=== PATIENT | female | born 1955 | race Caucasian/White ===

== ENCOUNTER 2019-03-20 15:44 | Inpatient (IN) | payer OTHER, SELFPAY ==
--- NOTE | ~2019-03-20 | XR_ITS ---
EXAMINATION: XR knee RT 2V DATE: 03/21/2019 15:57 INDICATION: Erythema at the right knee with recurrent knee infections. TECHNIQUE: Anteroposterior, oblique and crosstable lateral views of the right knee were obtained COMPARISON: None. FINDINGS: Right total knee arthroplasty with patellar resurfacing which appears well seated in near-anatomic al ignment. No periprosthetic lucency to suggest loosening or infection. There is lateral plate and scre w fixation spanning a comminuted metadiaphyseal fracture of the right femur. There is some nonbridgin g callus formation along the lateral margin of the midportion of the plate. No definitive solid osseo us bridging. There is some lucency in the distal metaphyseal fragment surrounding the distal portion of the central 2 screws. This does not appear to extend proximally along the screws to involve the lin rrounding distal diaphyseal region of the proximal fragment which slightly favors loosening over infe ction. No lucency surrounding the pair of proximal screws or the partially visualized distal 3 screws . Diffuse osteopenia. No joint effusion. IMPRESSION: 1. Small amount of lucency surrounding the distal aspect of the septal 2 screws of a plate and screw fixation of a still likely ununited comminuted metadiaphyseal fracture of the distal right femur. Dif ferential includes loosening and infection. Favor the former as the lucency remains confined to the p ortion of the screws in the distal fragment. 2. Right total knee arthroplasty which appears to remain well seated. 3. No significant right knee joint effusion. Reviewed, dictated and finalized at location A. PRODUCER IMPRESSION: 1. Small amount of lucency surrounding the distal aspect of the septal 2 screws of a plate and screw fixation of a still likely ununited comminuted metadiaphy seal fracture of the distal right femur. Differential includes loosening and in fection. Favor the former as the lucency remains confined to the portion of the screws in the distal fragment. 2. Right total knee arthroplasty which appears to remain well seated. 3. No significant right knee joint effusion.
--- NOTE | ~2019-03-20 | CT_ITS ---
EXAMINATION: CT abdomen pelvis w con DATE: 03/20/2019 17:05 INDICATION: Abdominal pain TECHNIQUE: Computed tomography (CT) of the abdomen and pelvis was performed with 100 mL Omnipaque-350 intravenous contrast. Automated exposure control and iterative reconstruction technique were employe d. The dose-length product was 1455.30 mGy-cm. COMPARISON: None FINDINGS: Mild discoid atelectasis in the bilateral lower lobes. Heart size is normal. No pericardial or pleura l effusion. Atherosclerotic coronary artery calcifications. Mild intra and extrahepatic biliary ducta l dilation which is within normal limits post cholecystectomy with surgical clips at the gallbladder fossa. Spleen, pancreas, bilateral adrenal glands and kidneys are normal. No bowel obstruction. Liqui d stool in the distal colon consistent with diarrhea. There is diffuse smooth wall thickening with in a haustral pattern in the colon. Bladder, anteverted uterus and bilateral adnexa are unremarkable. N o abscess or free intraperitoneal gas or fluid. No pathologically enlarged abdominal or pelvic lympha denopathy. Scattered atherosclerotic calcification without hemodynamically significant stenosis in th e aorta and several of the other arteries. There is moderate stenosis at the proximal celiac axis res ulting from extrinsic compression from the ravin of the diaphragm. Moderate scattered degenerative ske letal changes in the spine and pelvis. IMPRESSION: 1. Diarrhea with wall thickening in the distal colon which demonstrates and a haustral pattern consis tent with colitis which could be either acute, chronic or acute on chronic. Differential would includ e inflammatory colitis including ulcerative colitis as well as infectious or ischemic etiologies. 2. Mild intra and extra hepatic biliary ductal dilation likely related to prior cholecystectomy but w ould correlate with liver function tests. Reviewed, dictated and finalized at location A. ABLE ROUTER OPERATOR IMPRESSION: 1. Diarrhea with wall thickening in the distal colon which demonstrates and a h austral pattern consistent with colitis which could be either acute, chronic or acute on chronic. Differential would include inflammatory colitis including ul cerative colitis as well as infectious or ischemic etiologies. 2. Mild intra and extra hepatic biliary ductal dilation likely related to prior cholecystectomy but would correlate with liver function tests.
--- NOTE | ~2019-03-20 | XR_ITS ---
EXAMINATION: XR chest 1V portable DATE: 03/20/2019 22:59 INDICATION: Reevaluate PICC line position following a saline flush. TECHNIQUE: frontal view of the chest was obtained. COMPARISON: Chest radiograph dated 03/20/2019 at 9:32 PM FINDINGS: No interval change in positioning of the left upper chimney peripherally inserted central venous cath eter with distal tip curled back upon itself at the superior vena cava potentially extending into the azygos vein. Mild left basilar atelectasis along side a small are cardial fat pad. Additional subtle opacities in the right lower lung zone which on prior CT correspond to mild atelectasis in the right lower lobe. No new airspace opacities, pulmonary edema, pleural effusion or pneumothorax. Heart size is within normal limits for AP technique. IMPRESSION: 1. PICC line tip unchanged in position, back upon itself at the superior vena cava, potentially exten ding into the azygos vein. 2. Mild bibasilar atelectasis. Reviewed, dictated and finalized at location A. RN DANCER IMPRESSION: 1. PICC line tip unchanged in position, back upon itself at the superior vena c madisyn, potentially extending into the azygos vein. 2. Mild bibasilar atelectasis.
--- NOTE | ~2019-03-20 | CT_ITS ---
EXAMINATION: CT abdomen pelvis w con DATE: 03/24/2019 09:46 INDICATION: Abdominal distention, sepsis, colitis. TECHNIQUE: Computed tomography (CT) of the abdomen and pelvis was performed with 100 mL Omnipaque-350 intravenous contrast. Automated exposure control and iterative reconstruction technique were employe d. The dose-length product was 1315.66 mGy-cm. COMPARISON: 03/20/2019 FINDINGS: Very small left and trace right pleural effusions. Dependent atelectasis in the bilateral lower lobes . Radio megaly. No pericardial or pleural effusion. Small sliding-type hiatal hernia. Cholecystectomy clips the gallbladder fossa. Liver, spleen, pancreas, bilateral adrenal glands and right kidney are normal. Subcentimeter low-attenuation likely cyst at the lower pole of the left kidney. Bladder, ante verted uterus and bilateral adnexa are unremarkable. No free intraperitoneal gas or fluid. No patholo gically enlarged abdominal or pelvic lymphadenopathy. Mild to moderate lumbar spondylosis. Small bowel is normal in caliber with no obstruction. The appendix is not visualized. No pericecal in flammatory change to suggest acute appendicitis. There is persistent mild wall thickening in the now relatively decompressed distal sigmoid colon consistent with colitis. Relatively uniform mucosal enha ncement throughout the colon including the sigmoid colon. No pneumatosis, abscess or free intraperito li gas or fluid. There is calcified atherosclerosis of the aorta and many of the other arteries wit h no evident hemodynamically significant stenosis. The celiac, superior. IMPRESSION: 1. Persistent sigmoid colitis most likely either infectious or inflammatory in etiology. Reviewed, dictated and finalized at location A. ER BALANCE WHEEL SCREW HOLE
--- NOTE | ~2019-03-20 | US_ITS ---
EXAMINATION: US venous doppler [facility] DATE: 03/21/2019 16:09 INDICATION: Lower limb swelling. Venous stasis. TECHNIQUE: Grayscale ultrasound images without and with compression and Doppler ultrasound images of the bilateral lower extremity veins were obtained. COMPARISON: None. FINDINGS: The visualized portions of right common femoral vein, profunda (deep) femoral vein, femoral vein, pop liteal vein, posterior tibial veins, peroneal veins, gastrocnemius vein and greater saphenous vein ou tflow are patent. The visualized portions of left common femoral vein, profunda femoral vein, femoral vein, popliteal v ein, posterior tibial veins, peroneal veins, gastrocnemius vein and greater saphenous vein outflow ar e patent. IMPRESSION: 1. No deep venous thrombosis in either lower limb. Reviewed, dictated and finalized at location A. ER LOADER
--- NOTE | ~2019-03-20 | XR_ITS ---
EXAMINATION: XR chest 1V portable DATE: 03/20/2019 21:36 INDICATION: PICC line placement TECHNIQUE: frontal view of the chest was obtained. COMPARISON: CT dated 03/20/2019 FINDINGS: Left upper extremity peripherally inserted central venous catheter (PICC) which extends to the superi or vena cava where it makes a short loop back upon itself, potentially extending into the azygos vein . Mild elevation of the left hemidiaphragm with pericardial fat pad extending between the apex of the h eart and the costophrenic angle. Other airspace opacities, pulmonary edema, pleural effusion or pneum othorax. The cardiomediastinal silhouette is normal. IMPRESSION: 1. Left PICC line tip curled back upon itself at the superior vena cava potentially extending into th e azygos vein. Successful repositioning can sometimes be achieved with a rapid saline flush. 2. No acute cardiopulmonary disease.. Reviewed, dictated and finalized at location A. SFER KNITTER IMPRESSION: 1. Left PICC line tip curled back upon itself at the superior vena cava potenti ally extending into the azygos vein. Successful repositioning can sometimes be achieved with a rapid saline flush. 2. No acute cardiopulmonary disease..
--- NOTE | ~2019-03-20 | XR_ITS ---
XR chest PICC line DATE: 03/22/2019 12:06 INDICATION: Left arm PICC placement TECHNIQUE: Portable upright AP chest on 04/01/2009 and 1151 hours COMPARISON: 03/20/2019 portable AP chest FINDINGS: Left upper stomach. Catheter tip overlies the superior vena cava near the superior cavoatri al junction. Borderline heart size. Aortic calcification. There is mild pulmonary vascular congestion and redistribution. Mild infiltrate or atelectasis is sug gested in the lower lung zones. Diffuse osteopenia. Degenerative spurring of the thoracic spine. IMPRESSION: Left upper extremity PIC catheter tip near superior cavoatrial junction Reviewed, dictated and finalized at Location A. Reviewed, dictated and finalized at location A. THETIC AIDE IMPRESSION: Left upper extremity PIC catheter tip near superior cavoatrial junc tion
--- NOTE | 2019-03-20 15:46 | ED.ABDPAIN ---
HPI - Abdominal Pain General Chief Complaint: Nausea/Vomiting/Diarrhea Stated Complaint: ABD PAIN Time Seen by Provider: 03/20/19 15:45 Source: patient Mode of arrival: EMS Limitations: no limitations History of Present Illness HPI narrative: Pt is 63 y/o female who presents to the ED, via EMS, from [facility], with c/o generalized ABD pain for 3 days. She reports associated N/V/D and ABD distention. She denies having a fever. Pt is normally on 3L of home O2. MD elicited complaint: abdominal pain Onset (ago): day(s) (3) Location: diffuse Associated symptoms: nausea, vomiting, diarrhea and other (ABD distention) Related Data Allergies Allergy/AdvReac Type Severity Reaction Status Date / Time Penicillins Allergy Unknown Rash Verified 01/02/19 09:22 Review of Systems Review of Systems: All systems reviewed & are unremarkable except as noted in HPI and below Constitutional: Constitutional: Denies fever(s) Gastrointestinal: Gastrointestinal: Reports abdominal pain, Reports bloating, Reports diarrhea, Reports nausea and Reports vomiting PMFSH Past Medical History Medical History (Updated 03/20/19 @ 17:38 by Sonido Gilbert DO) Anemia Anxiety Cellulitis COPD (chronic obstructive pulmonary disease) Depression Fibromyalgia Lymphedema Patellar bursitis PVD (peripheral vascular disease) Surgical History Surgical History (Updated 03/20/19 @ 16:13 by Arnaud Jackson) Surgical history unknown Social History Social History (Updated 03/20/19 @ 16:13 by Arnaud Jackson) Living arrangements: assisted Exam Narrative: Exam Narrative: APPEARANCE: No acute distress, nontoxic, resting in bed HEENT: Normocephalic, atraumatic, oral mucosa dry RESPIRATORY: No respiratory distress, clear to auscultation bilaterally with no rhonchi wheezing or rales CARDIOVASCULAR: RRR s murmur ABDOMINAL: Soft, mildly distended, diffusely tender to palpation, no rebound or guarding MUSCULOSKELETAl: Moves all extremities. No clubbing, cyanosis or edema. NEURO: Awake and alert. Following commands, speech normal, no focal deficits SKIN:: Warm, dry. Normal Color PSYCHIATRIC: Normal affect/mood Course Course Emergency Course: Discussed with Dr. Stack. Agrees with consult with patient start antibiotics. Request stool cultures and C. difficile be obtained Discussed with SAMMY Rapp presentation work-up. Agrees with admission at this time Discussed with patient and family results of workup and diagnosis. Discussed need for admission. Patient and family understand and agree to current treatment plan Vital Signs Vital signs: Vital Signs Temperature 98.2 F 03/20/19 15:50 Pulse Rate 109 H 03/20/19 15:50 Respiratory Rate 20 03/20/19 15:50 Blood Pressure 160/88 H 03/20/19 15:50 Pulse Oximetry 97 03/20/19 15:50 Temperature 98.2 F 03/20/19 15:50 Pulse Rate 109 H 03/20/19 15:50 Respiratory Rate 20 03/20/19 15:50 Blood Pressure 160/88 H 03/20/19 15:50 Pulse Oximetry 97 03/20/19 15:50 MDM - Abdominal Pain Lab Data Result diagrams: 03/20/19 15:57 03/20/19 15:57 Labs: Lab Results 03/20/19 03/20/19 03/20/19 Range/Units 15:57 15:57 15:57 WBC 26.2 H (4.5-10.0) K/mm3 RBC 5.23 (4.2-5.4) M/mm3 Hgb 15.3 H (12.0-15.0) g/dL Hct 47.7 H (37.0-47.0) % MCV 91.2 (80-100) fl MCH 29.3 (26-34) pg MCHC 32.1 (32-36) g/dl RDW 13.7 (11.5-14.5) % Plt Count 382 H (150-375) k/mm3 MPV 9.8 (7.4-10.4) fl Immature Gran % (Auto) Not Reportable Neut % (Auto) Not Reportable Lymph % (Auto) Not Reportable Jenkins % (Auto) Not Reportable Eos % (Auto) Not Reportable Baso % (Auto) Not Reportable Lymph # (Auto) Not Reportable Jenkins # (Auto) Not Reportable Eos # (Auto) Not Reportable Baso # (Auto) Not Reportable Abs Immat Gran (auto) Not Reportable Absolute Neuts (auto) Not Reportable Absolut
[2019-03-20 15:50] VITALS: BP 160/88; PULSE 109; RESP 20; TEMP 36.8; O2SAT 97
[2019-03-20 16:06] LABS: Hematocrit 47.7 % (37.0-47.0); Hemoglobin 15.3 g/dL (12.0-15.0); Mean Corpuscular HGB Conc 32.1 g/dl (32-36); Mean Corpuscular Hemoglobin 29.3 pg (26-34); Mean Corpuscular Volume 91.2 fl (80-100); Mean Platelet Volume 9.8 fl (7.4-10.4); Platelet Count Result 382 k/mm3 (150-375); Red Blood Count 5.23 M/mm3 (4.2-5.4); Red Cell Distribution Width 13.7 % (11.5-14.5); White Blood Count 26.2 K/mm3 (4.5-10.0)
[2019-03-20 16:18] LABS: Lactic Acid Reflex 2.6 mmol/L (0.7-2.1)
[2019-03-20 16:19] LABS: Alanine Aminotransferase 22 U/L (4-35); Alkaline Phosphatase 129 U/L (38-126); Aspartate Amino Transferase 28 U/L (14-36); Bilirubin,Total 0.6 mg/dL (0.2-1.3); Blood Urea Nitrogen 10 mg/dL (7-17); Calcium 8.9 mg/dL (8.4-10.2); Carbon Dioxide 35 mmol/L (22-30); Chloride 90 mmol/L (98-107); Estimated CRCL calculation 178 ml/min; Estimated Glomerular Filt Rate > 60; Glucose 224 mg/dL (65-105); Sodium 134 mmol/L (137-145)
[2019-03-20 16:24] LABS: INR 1.1; Prothrombin Time 13.7 Seconds (11.1-14.7)
[2019-03-20 16:25] LABS: Partial Thromboplastin Time 33.4 SECONDS (22.3-36.8)
[2019-03-20 16:32] LABS: Band Neutrophils Percent 16 % (0-6); Lymphocytes Absolute Manual 1.04 K/mm3 (1.1-4.5); Monocytes Absolute Manual 0.78 K/mm3 (0.1-0.90); Monocytes Percent Manual 3 % (3-9); Neutrophils Absolute Manual 24.36 K/mm3 (1.7-7.2); Neutrophils Percent Manual 77 % (46-73); Total Cells Counted 100
[2019-03-20 16:59] LABS: Add Urine Microscopic? YES; Appearance Urine Clear (Clear); Bilirubin Urine Negative (Negative); Blood Urine Negative (Negative); Color Urine Yellow (Yellow); Glucose Urine UA Negative (Negative); Ketones Urine Negative (Negative); Leukocyte Esterase Ur Negative LEU/UL (Negative); Mucus Urine Rare /lpf; Nitrate Urine Negative (Negative); Protein Urine Negative (Negative); RBC Urine 0-2 /hpf (0-2); Specific Grav Ur 1.017 (1.001-1.035); Squamous Epithelial Cell Urine Rare /hpf (Few); Urobilinogen Urine Negative mg/dL (<2.0); WBC Urine 0-3 /hpf
[2019-03-20] MEDS: SODIUM CHLORIDE 0.9% IV 1,000 ML 999 ML IV CONT (17:05)
[2019-03-20] MEDS: metroNIDAZOLE 500 MG/ISO 100ML 500 MG/100 ML BAG 100 MG IVPB (17:53)
[2019-03-20 19:03] LABS: Reflex Lactic Acid Yes or No Add Lactic
[2019-03-20 19:07] VITALS: BP 149/67; PULSE 105; RESP 16; O2SAT 98
--- NOTE | 2019-03-20 19:30 | ADMGEN ---
This patient, Ania Russell, was admitted to 2 Medical Room 242-01. Patient/family oriented to hospital policies and general routines including ID bracelet, bed and alarms, visiting hours, pain management, procedures, bathroom and other care routines, personal items, smoking policy, room service/diet, and visiting hours. Valuables list has been completed. Information on how to activate the Rapid Response Team has been discussed. Patient/Family are encouraged to report perceived risks to care and to ask questions if they do not understand what they are told or what they should do.
[2019-03-20] MEDS: LACTATED RINGERS 1,000 ML 125 ML IV CONT (20:05)
--- NOTE | 2019-03-20 20:10 | ECG_ITS ---
Measurements Intervals [place] Rate: 111 P: 65 SD: 126 QRS: 14 QRSD: 82 T: 45 QT: 305 QTc: 416 Interpretive Statements SINUS TACHYCARDIA FREQUENT ATRIAL PREMATURE COMPLEXES BORDERLINE ST-T WAVE ABNORMALITY- DIFFUSE LEADS BASELINE ARTIFACT- V4 ABNORMAL ECG Electronically Signed On 03-21-2019 7:28:09 DORMITORY COUNSELOR by Min Hassan D.O.
[2019-03-20 20:36] LABS: Lactic Acid 1.6 mmol/L (0.7-2.1)
[2019-03-20 21:00] VITALS: O2SAT 95
[2019-03-20 21:31] VITALS: BP 126/63; PULSE 115; RESP 20; TEMP 36.4; O2SAT 94; BMI 43.0
[2019-03-20] MEDS: ONDANSETRON INJ 4 MG/2 ML VIAL IV PUSH (22:43)
[2019-03-20] MEDS: MORPHINE SULFATE 30 MG TABCR PO (23:49)
[2019-03-21] MEDS: metroNIDAZOLE 500 MG/ISO 100ML 500 MG/100 ML BAG 100 MG IVPB ×4 (00:45→17:24)
[2019-03-21 05:46] VITALS: BP 121/70; PULSE 111; RESP 20; TEMP 36.9; O2SAT 95
[2019-03-21] MEDS: LACTATED RINGERS 1,000 ML 125 ML IV CONT ×2 (05:48→17:26)
[2019-03-21 06:43] LABS: Hematocrit 44.3 % (37.0-47.0); Hemoglobin 14.1 g/dL (12.0-15.0); Mean Corpuscular HGB Conc 31.8 g/dl (32-36); Mean Corpuscular Hemoglobin 28.7 pg (26-34); Mean Platelet Volume 9.9 fl (7.4-10.4); Platelet Count Result 348 k/mm3 (150-375); Red Blood Count 4.92 M/mm3 (4.2-5.4); Red Cell Distribution Width 13.5 % (11.5-14.5); White Blood Count 18.3 K/mm3 (4.5-10.0)
[2019-03-21 07:00] LABS: Alanine Aminotransferase 17 U/L (4-35); Albumin Level 3.3 g/dL (3.5-5.1); Alkaline Phosphatase 117 U/L (38-126); Aspartate Amino Transferase 19 U/L (14-36); Bilirubin,Total 0.6 mg/dL (0.2-1.3); Blood Urea Nitrogen 11 mg/dL (7-17); Calcium 8.8 mg/dL (8.4-10.2); Carbon Dioxide 32 mmol/L (22-30); Chloride 91 mmol/L (98-107); Estimated CRCL calculation 138 ml/min; Estimated Glomerular Filt Rate > 60; Glucose 123 mg/dL (65-105); Magnesium 2.4 mg/dL (1.6-2.3); Potassium 3.3 mmol/L (3.4-5.0); Sodium 134 mmol/L (137-145)
[2019-03-21] MEDS: POTASSIUM CHLORIDE 20 MEQ TABLET 40 MEQ PO (08:20)
[2019-03-21] MEDS: MORPHINE SULFATE 30 MG TABCR PO ×2 (08:21→21:54)
[2019-03-21] MEDS: ONDANSETRON INJ 4 MG/2 ML VIAL IV PUSH ×3 (08:33→16:39)
--- NOTE | 2019-03-21 08:35 | WPDGICN ---
Assessment and Plan Additional Plan This is a 63-year-old white female patient I am asked to see at the request of the emergency room. Patient currently resident of a rehab center, [facility]. Outpatient primary care is Dr. Lay. Patient has had a 3 day history of abdominal pain nausea vomiting some diarrhea. She reports abdominal distention as well. Patient denies a fever. She was sent to the emergency room a CT scan suggested colitis. Patient is in the residential because of a past history of nonhealing bone fracture in the lower extremity. She has a history of COPD. On 3L of oxygen at home. She is reported to have fibromyalgia. Past medical history significant for COPD, fibromyalgia, depression, peripheral vascular disease. Obesity. Medications at home include Tylenol, albuterol, calcium, vitamin D3, ferrous sulfate, Lasix, lactobacillus, morphine, multiple vitamins, rifampin, sertraline, Bactrim, spiriva. She reports an allergy to penicillin. Family history noncontributory. Physical exam vital signs appears stable. HEENT exam unremarkable. She is anicteric. Lungs are clear to auscultation and percussion. Heart is without murmur. Abdominal exam is obese. Bowel sounds are present. Soft and nontender. Rectal exam is deferred. Laboratory findings reveals WBC 05140. Hemoglobin 15. BUN of 11, creatinine 0.4. LFTs are normal. CT scan of the abdomen reveals wall thickening in the distal colon consistent with colitis. Also nonspecific biliary dilatation if as expected after previous cholecystectomy. Impression 1. Infectious colitis. diarrhea abdominal pain and abnormal CAT scan all consistent with infectious colitis. Ischemic colitis and inflammatory bowel disease or felt to be much less likely. 2. Obesity. 3. COPD. 4. Previous cholecystectomy. 5. Nonhealing bone fractures in lower extremity. Plan is to culture stool. Broad-spectrum antibiotic coverage. IV rehydration. Elective outpatient colonoscopy can be arranged after discharge. Unless patient fails to his heel with conservative antibiotic therapy. We will follow with you. GI Consult Note Consult date/time: 03/21/19 08:35 HPI: Ania Russell is a 63 year old female [facility] Past Medical History Medical History (Updated 03/20/19 @ 17:38 by Sonido Gilbert DO) Anemia Anxiety Cellulitis COPD (chronic obstructive pulmonary disease) Depression Fibromyalgia Lymphedema Patellar bursitis PVD (peripheral vascular disease) Surgical History Surgical History (Updated 03/20/19 @ 16:13 by Arnaud Jackson) Surgical history unknown Family History Family History (Updated 03/20/19 @ 19:40 by Kate Villagomez RN) Father Acute myocardial infarction Mother Asthma Chronic obstructive pulmonary disease Social History Social History (Updated 03/20/19 @ 16:13 by Arnaud Jackson) Smoking status: Former smoker Alcohol intake: never Substance use: never Living arrangements: residential Gender identity (if verbalized by the patient): Female Spiritual care concerns: No Agree to blood products: Yes Meds Home Medications and Allergies Home Medications Medication Instructions Recorded Confirmed Type Lactobacillus acidophilus 100 mg PO DAILY 03/20/19 03/20/19 History [Acidophilus] acetaminophen [Tylenol] 650 mg PO Q4-6H PRN 03/20/19 03/20/19 History acidophilus-pectin, citrus 1 cap PO BID 03/20/19 03/20/19 History [Acidophilus Probiotic] albuterol sulfate 0.63 mg INHALATION Q4H PRN 03/20/19 03/20/19 History albuterol sulfate [Ventolin HFA] 2 puff INHALATION QID PRN 03/20/19 03/20/19 History nebjmbea-qhnowhkmk-vyfknyd HMB 1 ea PO BID 03/20/19 03/20/19 History [Ahmet] ascorbic acid (vitamin C) 500 mg PO BID 03/20/19 03/20/19 History calcium carbonate [Calcium 500] 500 mg PO BID 03/20/19 03/20/19 History cholecalciferol (vitamin D3) 2,000 unit PO DAILY 03/20/19 03/20/19 History [Vitamin D3]
[2019-03-21 09:14] LABS: Band Neutrophils Percent 5 % (0-6); Lymphocytes Absolute Manual 2.01 K/mm3 (1.1-4.5); Monocytes Percent Manual 23 % (3-9); Neutrophils Absolute Manual 12.07 K/mm3 (1.7-7.2); Neutrophils Percent Manual 61 % (46-73); Total Cells Counted 100
[2019-03-21 09:15] LABS: Platelet Estimate Adequate (Adequate)
--- NOTE | 2019-03-21 10:08 | PC.NURSE ---
Patient's nausea would not allow her to take all of her morning medication. She took her morning morphine and potassium. All others she was unable to take. Offered again after zofran given. Patient refused still at 1005. Silvina Hull notified.
[2019-03-21 10:25] VITALS: O2SAT 96
[2019-03-21 14:00] VITALS: BP 146/60; PULSE 84; RESP 18; TEMP 36.2; O2SAT 98
--- NOTE | 2019-03-21 14:40 | PM.IMHP ---
H&P: HPI History of Present Illness Chief complaint: Severe sepsis/Colitis Narrative: Ania Russell is a 63 year old female with a history of chronic respiratory failure on 3L of oxygen, C. diff 11/2018, recurrent right knee infection seen by Infectious Disease at [facility] who has a PICC line and is curretly on IV Vancomycin 1.5 g Q12hr since returning to [facility] on 03/07/2019, who presented to the ER with symptoms of nausea, vomiting, abdominal pain, abdominal distension and diarrhea for the last few days. The patient had been feeling fine until 2 days ago she had abdominal distention and tenderness to palpation of her abdomen. She told the Nursing staff and they recommended her to go to the ER but she had refused. Then, symptoms progressed and she was unable to keep anything down from the vomiting and her diarrhea was watery in nature and would even expell with coughing or sneezing. She reports having C. diff in the past. She does report feeling lightheadedness, generalizd weakness, fatigue prior to arrival. She denies any fever, chills, worsening leg swelling, chest pain, worsneing SOB or [place], cough, dysuria, frequent urination, rhinorrhea, congestion, dizziness, headache, vision changes or any other symptoms at this time. I called [facility] and talked to her nurse Ana Laura, who states the patient was on Bactrim and Rifampin by her Infectious Disease DrStephanie Bradford (#[phone]) at [facility], prior to her hospitalization 02/2019. She was then sent to [facility] 02/2019 and found to have Cellulitis of the right knee and started on IV Vancomycin through her PICC Line. She was discharged from [facility] on 03/07/2019 back to [facility] and continued on Vancomycin 1.5 g Q12hrs and her next trough was suppose to be 03/22/2019. She is suppose to follow up with her infectious disease doctor at [facility] on 03/25/2019. Ana Laura the nurse states on 03/19/2019, the patient complained of abdominal distension but refused to come to the ER for evaluation. Then on 03/20/2019 she was having worsening symptoms and was finally decided to come to the ER. Code Status: DNR POA: , Aidan Russell PCP: [facility] Physician Review of Systems Review of Systems: All systems reviewed & are unremarkable except as noted in HPI and below PMFSH Past Medical History Medical History (Updated 03/22/19 @ 16:26 by Silvina Hull PA-C) Anemia Antibiotic long-term use Due to recurrent infections to her right femoral fracture Anxiety Cellulitis Chronic respiratory failure Uses 3L via [place] COPD (chronic obstructive pulmonary disease) Depression Fibromyalgia Lymphedema Patellar bursitis PVD (peripheral vascular disease) Right femoral fracture With recurrent infections Surgical History Surgical History History of appendectomy History of cardiac catheterization History of colonoscopy History of esophagogastroduodenoscopy (EGD) History of left knee replacement History of right knee joint replacement Hx of cholecystectomy Surgical history unknown Family History Family History Father Acute myocardial infarction Mother Asthma Chronic obstructive pulmonary disease Social History Social History Smoking packs per day: 1 Smoking cigarettes per day: 20.0 Years smoked: 5 Smoking pack-years: 5.00 Smoking status: Former smoker Alcohol intake: never Substance use: never Living arrangements: retirement Additional living arrangements comments: Lives at [facility] Gender identity (if verbalized by the patient): Female Spiritual care concerns: No Agree to blood products: Yes Meds Home Medications and Allergies Home Medications Medication Instructions Recorded Confirmed Type Lactobacillus acidophilus 100 mg PO DAILY 03/20/19 03/20/19 Co
[2019-03-21] MEDS: ACETAMINOPHEN 325 MG TABLET 650 MG PO (17:24)
[2019-03-21] MEDS: VANCOMYCIN ORAL 125 MG/2.5 ML SYRUP PO (19:20)
[2019-03-21 22:45] VITALS: BP 141/58; PULSE 99; RESP 18; TEMP 36.3; O2SAT 96
[2019-03-22] MEDS: VANCOMYCIN ORAL 125 MG/2.5 ML SYRUP PO ×3 (00:39→12:31)
[2019-03-22] MEDS: LACTATED RINGERS 1,000 ML 125 ML IV CONT ×2 (00:40→11:25)
[2019-03-22 05:13] LABS: Basophils Absolute Auto 0.1 K/mm3 (0.0-0.1); Basophils Percent Auto 0.5 % (0.2-1.2); Eosinophils Absolute Auto 0.1 K/mm3 (0-0.3); Eosinophils Percent Auto 1.4 % (0-4.4); Hematocrit 36.4 % (37.0-47.0); Hemoglobin 11.8 g/dL (12.0-15.0); Immature Granulocyte Absolute 0.07 K/mm3 (0.00-0.031); Immature Granulocyte Percent A 0.7 % (0-0.5); Lymphocytes Percent Auto 36.7 % (18.3-44.2); Mean Corpuscular HGB Conc 32.4 g/dl (32-36); Mean Corpuscular Hemoglobin 29.4 pg (26-34); Mean Corpuscular Volume 90.5 fl (80-100); Mean Platelet Volume 9.9 fl (7.4-10.4); Monocytes Absolute Auto 1.3 K/mm3 (0.1-0.6); Neutrophils Absolute Auto 4.5 K/mm3 (1.3-6.7); Neutrophils Percent Auto 46.7 % (45.5-73.1); Platelet Count Result 283 k/mm3 (150-375); Red Blood Count 4.02 M/mm3 (4.2-5.4); Red Cell Distribution Width 13.3 % (11.5-14.5); White Blood Count 9.5 K/mm3 (4.5-10.0)
[2019-03-22 05:24] LABS: Alanine Aminotransferase 14 U/L (4-35); Albumin Level 2.6 g/dL (3.5-5.1); Alkaline Phosphatase 99 U/L (38-126); Aspartate Amino Transferase 20 U/L (14-36); Bilirubin,Total 0.3 mg/dL (0.2-1.3); Blood Urea Nitrogen 9 mg/dL (7-17); Calcium 8.5 mg/dL (8.4-10.2); Carbon Dioxide 36 mmol/L (22-30); Chloride 96 mmol/L (98-107); Estimated CRCL calculation 138 ml/min; Estimated Glomerular Filt Rate > 60; Glucose 96 mg/dL (65-105); Potassium 3.2 mmol/L (3.4-5.0); Sodium 135 mmol/L (137-145)
[2019-03-22 05:46] VITALS: O2SAT 96
[2019-03-22 05:55] VITALS: BP 131/60; PULSE 96; RESP 18; TEMP 36.1; O2SAT 96
--- NOTE | 2019-03-22 07:45 | WPDGIPROGNO ---
Progress Note: A&P Additional Plan Patient reports ongoing diarrhea. Complains of abdominal distention and bloating. Physical exam reveals her to be afebrile. HEENT exam unremarkable. She is anicteric. Lungs are clear. Heart is without murmur. Abdomen is obese. Bowel sounds are present. Abdomen is tympanic. And mild diffuse tenderness noted. WBC down to 18. Yesterday. CBC today pending. Impression colitis by CT scan. Infectious colitis is felt most likely. Patient has been on antibiotics for cellulitis. Raising the question of C difficile infection. Stool cultures are currently pending. Agree with antibiotics per ID service. Will continue to monitor. Subjective Date/time seen: 03/22/19 07:45 Objective Data Vital Signs Vital Signs: Vital Signs - 24 hr 03/21/19 10:25 03/21/19 14:00 03/21/19 22:45 Temperature 36.2 C L 36.3 C L Pulse Rate 84 99 Respiratory Rate 18 18 Blood Pressure 146/60 H 141/58 H Pulse Oximetry 96 98 96 03/22/19 05:46 03/22/19 05:55 Temperature 36.1 C L Pulse Rate 96 Respiratory Rate 18 Blood Pressure 131/60 Pulse Oximetry 96 96 Intake/Output Intake/Output: Intake & Output 03/19/19 03/20/19 03/21/19 03/22/19 23:59 23:59 23:59 23:59 Intake Total 1250 4150 1750 Balance 1250 4150 1750 Meds/Results Medications: Active Medications Generic Name Dose Route Start Last Admin Trade Name Freq PRN Reason Stop Dose Admin Acetaminophen 650 mg 03/20/19 22:06 03/21/19 17:24 Tylenol Tablet PO 650 mg Q4H PRN Administration Fever or pain 1-3 Albuterol 2.5 mg 03/20/19 22:08 Albuterol Sulf Neb 2.5mg/0.5ml INHALATION Q4H PRN Dyspnea Albuterol 2 puff 03/21/19 21:29 Proventil Hfa INHALATION QID PRN Dyspnea Cyanocobalamin 1,000 mcg 03/21/19 09:00 03/21/19 10:48 Vitamin B-12 Tab PO Not Given QAM [facility] Ferrous Sulfate 324 mg 03/21/19 08:00 03/21/19 10:47 Ferrous Sulfate PO Not Given DAILY@0800 [facility] Folic Acid 1 mg 03/21/19 09:00 03/21/19 10:48 Folic Acid PO Not Given DAILY [facility] Guaifenesin 600 mg 03/21/19 21:29 Mucinex 12 Hr Tab PO BID PRN cough Lactated Ringer's 1,000 mls @ 100 mls/hr 03/20/19 17:35 03/22/19 05:19 Lr - Lactated Ringers Iv IV CONT 125 mls/hr .Q10H [facility] Infusion Vancomycin HCl 1,500 mg in 500 mls @ 333.333 mls/hr 03/21/19 19:00 03/22/19 06:21 Vancomycin 1,500 Mg/D5w 500 Ml IVPB 125 mls/hr Q12H [facility] Administration Lactobacillus Acidophilus 1 tablet 03/22/19 09:00 Lactinex Chewable Tablet PO 04/21/19 09:01 BID [facility] Loratadine 10 mg 03/21/19 09:00 03/21/19 10:48 Claritin PO Not Given QAM [facility] Morphine Sulfate 30 mg 03/21/19 09:00 03/21/19 21:54 Ms Contin PO 30 mg Q12H [facility] Administration Ondansetron HCl 4 mg 03/20/19 22:06 03/21/19 16:39 Zofran Inj IV PUSH 4 mg Q4H PRN Administration Nausea And Vomiting Fluticasone/Salmeterol 2 puff 03/21/19 08:00 03/21/19 23:22 Advair Hfa 230-21 Mcg (*Sp) Inhaler INHALATION 2 puff Q12HRT [facility] Administration Sertraline HCl 50 mg 03/21/19 09:00 03/21/19 10:48 Zoloft PO Not Given DAILY [facility] Tiotropium [place] 1 cap 03/21/19 09:00 03/21/19 10:24 Spiriva INHALATION 1 cap DAILY [facility] Administration Vancomycin HCl 125 mg 03/21/19 18:00 03/22/19 06:21 Vancomycin Oral PO 125 mg Q6HR [facility] Administration Vitamin D 2,000 unit 03/21/19 09:00 03/21/19 10:47 Vitamin D PO Not Given DAILY [facility] Radiology Results: ITS Impressions Abdomen/Pelvis CT 03/20/19 17:09 IMPRESSION: 1. Diarrhea with wall thickening in the distal colon which demonstrates and a haustral pattern consistent with colitis which could be either acute, chronic or acute on chronic. Differential would include inflammatory colitis including ulcerative colitis as well as infectious or ischemic etiologies. 2. Mild intra and extra hepatic biliary ducta
[2019-03-22] MEDS: MORPHINE SULFATE 30 MG TABCR PO ×2 (08:01→21:19)
[2019-03-22] MEDS: POTASSIUM CHLORIDE 20 MEQ TABLET 40 MEQ PO (08:02)
[2019-03-22] MEDS: SERTRALINE HCL 50 MG TABLET PO (08:03)
[2019-03-22] MEDS: ONDANSETRON INJ 4 MG/2 ML VIAL IV PUSH ×2 (08:04→22:32)
[2019-03-22 08:11] VITALS: O2SAT 98
--- NOTE | 2019-03-22 11:20 | PC.NURSE ---
PICC line placement and Xray discussed with Nayeli Lockwood the vascular range management specialist. She suggested a rapid flush of 6-10 mL syringes to assist with placement of the PICC line. Plan discussed with Silvina CHRISTIANSON. She said to proceed with the treatment and order a repeat Chest xray to verify placement once completed.
[2019-03-22 14:00] VITALS: BP 150/61; PULSE 85; RESP 18; TEMP 36.9; O2SAT 99
--- NOTE | 2019-03-22 14:35 | PM.IMPN ---
Progress Note: A&P Assessment and Plan (1) Severe sepsis: Code(s): A41.9 - Sepsis, unspecified organism; R65.20 - Severe sepsis without septic shock Status: Acute Assessment and Plan: The patient meets for severe sepsis with leukocytosis at 26,200, with a left shift and lactic acidosis, tachycardic heart rate, with a source of infection being infectious colitis. No longer septic. Lleukocytosis has normalized. Afebrile, not tachycardic, normal blood pressure, normal oxygenation on 3 L. Blood cultures and stool cultures are pending. The patient was started on IV antibiotics and will discontinue IV fluids Continue monitoring patients vitals, leukocytosis and symptoms. (2) Colitis: Code(s): K52.9 - Noninfective gastroenteritis and colitis, unspecified Status: Acute Assessment and Plan: This puts the patient at high risk of developing C diff colitis with chronic antibiotic use. The patient began having symptoms of nausea, vomiting, abdominal pain, abdominal distension, and diarrhea over the last few days. CT abdomen pelvis showed diarrhea with wall thickening in the distal colon which demonstrates colitis which could be acute, chronic or acute on chronic. Dr. Linton GI specialist was consulted from the ER and evaluated the patient and believes this could be related to infectious colitis and recommend continuing IV antibiotics at this time and monitoring patient's symptoms. Urine cultures were sent and pending. At this time the patient is feeling better. She is eating a little bit more today. She has not had any diarrhea today. She is still having a lot of pain, abdominal distension and intermittent nausea but it is improved. Due to the patient's significant history for antibiotic use due to recurrent right knee infections I will also consult Dr. Bishop infectious Disease on the case for further recommendations for antibiotic use at this time. 03/21/2019: I talked to Dr. Bishop about the patients History and IV Vancomycin use. He recommended continuing IV Vancomycin 1.5 g Q12hrs and to start PO Vancomycin for possible C. difficile infection. 03/22/2019: The patient C diff culture came back negative. I stopped her p.o. vancomycin and switch her back to IV Levaquin and Flagyl. The rest of her stool cultures are still pending. Will continue monitoring the patient's symptoms. Continue IV antibiotics. Input from GI and Infectious Disease is greatly appreciated at this time. (3) Acute hypokalemia: Code(s): E87.6 - Hypokalemia Status: Acute Assessment and Plan: The patient had hypokalemia on admission and was still slightly low this morning at 3.2. She was given potassium 40 mEq and we will recheck a BMP in the morning. Patient's magnesium was within normal limits. (4) Recurrent cellulitis: Code(s): L03.90 - Cellulitis, unspecified Status: Acute Assessment and Plan: The patient has been on chronic antibiotics for recurring right knee cellulitis. February 2019 she was on rifampin and Bactrim and after she was discharged from [facility] 03/07/2019 she was continued on IV vancomycin. She is currently on IV vancomycin 1.5 g q.12hr and her next trough is due to 03/22/2019. At this time her right knee has some slight erythema and edema. Started back on IV Vancomycin as recommended by Dr. Bishop over the phone after giving her history and present illness. Knee x-ray small amount of lucency Small amount of lucency surrounding the distal aspect of the septal 2 screws of a plate and screw fixation of a still likely ununited comminuted metadiaphyseal fracture of the distal right femur. Differential includes loosening and infection. Favor the former as the lucency remains confined to the portion of the screws in the distal fragment. No significant rig
--- NOTE | 2019-03-22 14:54 | PC.NURSE ---
Per Dr. Zamarripa the radiologist patient CXR us improved and the placement of the PICC line has improved. Silvina CHRISTIANSON also notified of the results.
[2019-03-22] MEDS: POTASSIUM CHLORIDE 20 MEQ TABLET.ER PO (18:27)
[2019-03-22] MEDS: FUROSEMIDE 40 MG TABLET PO (18:28)
[2019-03-22] MEDS: ACIDOPHILUS/BULGARICUS CHEWABLE TABLET 1 TABLET PO (18:28)
[2019-03-22 19:52] VITALS: PULSE 107; RESP 18; O2SAT 97
[2019-03-22] MEDS: metroNIDAZOLE 500 MG/ISO 100ML 500 MG/100 ML BAG 100 MG IVPB (20:18)
[2019-03-22 22:00] VITALS: BP 115/40; PULSE 91; RESP 22; TEMP 36.4; O2SAT 97
[2019-03-23] MEDS: metroNIDAZOLE 500 MG/ISO 100ML 500 MG/100 ML BAG 100 MG IVPB ×3 (00:29→10:55)
[2019-03-23 06:00] VITALS: BP 143/48; PULSE 80; RESP 20; TEMP 36.5; O2SAT 97
[2019-03-23 06:04] LABS: Basophils Absolute Auto 0.1 K/mm3 (0.0-0.1); Basophils Percent Auto 0.8 % (0.2-1.2); Eosinophils Absolute Auto 0.2 K/mm3 (0-0.3); Eosinophils Percent Auto 2.7 % (0-4.4); Hematocrit 34.7 % (37.0-47.0); Hemoglobin 10.9 g/dL (12.0-15.0); Immature Granulocyte Absolute 0.13 K/mm3 (0.00-0.031); Immature Granulocyte Percent A 1.8 % (0-0.5); Lymphocytes Absolute Auto 3.13 K/mm3 (0.9-3.2); Mean Corpuscular HGB Conc 31.4 g/dl (32-36); Mean Corpuscular Hemoglobin 28.8 pg (26-34); Mean Corpuscular Volume 91.6 fl (80-100); Mean Platelet Volume 10.2 fl (7.4-10.4); Monocytes Absolute Auto 0.9 K/mm3 (0.1-0.6); Monocytes Percent Auto 12.4 % (2.6-8.5); Neutrophils Absolute Auto 2.9 K/mm3 (1.3-6.7); Neutrophils Percent Auto 39.3 % (45.5-73.1); Platelet Count Result 290 k/mm3 (150-375); Red Blood Count 3.79 M/mm3 (4.2-5.4); Red Cell Distribution Width 13.6 % (11.5-14.5); White Blood Count 7.3 K/mm3 (4.5-10.0)
[2019-03-23 06:19] LABS: Blood Urea Nitrogen 7 mg/dL (7-17); Calcium 8.6 mg/dL (8.4-10.2); Carbon Dioxide 35 mmol/L (22-30); Chloride 96 mmol/L (98-107); Estimated CRCL calculation 176 ml/min; Estimated Glomerular Filt Rate > 60; Glucose 90 mg/dL (65-105); Magnesium 1.8 mg/dL (1.6-2.3); Potassium 3.9 mmol/L (3.4-5.0); Sodium 137 mmol/L (137-145)
--- NOTE | 2019-03-23 07:56 | WPDGIPROGNO ---
Progress Note: A&P Additional Plan Patient reports diarrhea has stopped. She continues to feel diffuse abdominal bloating. Some nausea associated with oral intake remains. Physical exam reveals her to be alert. Abdomen is obese. Abdomen is distended and tympanic. Bowel sounds are present. Abdomen is soft with no localized tenderness. Labs reveal WBC 7.3. Has now returned to normal. Hemoglobin 10.9, hematocrit 34.7, stool for C difficile toxin is negative. Impression 1. Colitis. Appears to be infectious colitis identified by CT scan. Plan is to continue broad-spectrum antibiotic coverage. Await final stool culture reports. Consider elective colonoscopy. Hopefully after discharge. Subjective Date/time seen: 03/23/19 07:56 Objective Data Vital Signs Vital Signs: Vital Signs - 24 hr 03/22/19 08:11 03/22/19 14:00 03/22/19 19:52 Temperature 36.9 C Pulse Rate 85 107 H Respiratory Rate 18 18 Blood Pressure 150/61 H Pulse Oximetry 98 99 97 03/22/19 22:00 03/23/19 06:00 Temperature 36.4 C 36.5 C Pulse Rate 91 80 Respiratory Rate 22 H 20 Blood Pressure 115/40 L 143/48 H Pulse Oximetry 97 97 Intake/Output Intake/Output: Intake & Output 03/20/19 03/21/19 03/22/19 03/23/19 23:59 23:59 23:59 23:59 Intake Total 1250 4150 4445 540 Balance 1250 4150 4445 540 Meds/Results Medications: Active Medications Generic Name Dose Route Start Last Admin Trade Name Freq PRN Reason Stop Dose Admin Acetaminophen 650 mg 03/20/19 22:06 03/21/19 17:24 Tylenol Tablet PO 650 mg Q4H PRN Administration Fever or pain 1-3 Albuterol 2.5 mg 03/20/19 22:08 Albuterol Sulf Neb 2.5mg/0.5ml INHALATION Q4H PRN Dyspnea Albuterol 2 puff 03/21/19 21:29 Proventil Hfa INHALATION QID PRN Dyspnea Cyanocobalamin 1,000 mcg 03/21/19 09:00 03/22/19 11:30 Vitamin B-12 Tab PO Not Given QAM [facility] Ferrous Sulfate 324 mg 03/21/19 08:00 03/22/19 11:30 Ferrous Sulfate PO Not Given DAILY@0800 [facility] Folic Acid 1 mg 03/21/19 09:00 03/22/19 11:30 Folic Acid PO Not Given DAILY [facility] Furosemide 40 mg 03/22/19 17:00 03/22/19 18:28 Lasix Tablet PO 40 mg BID [facility] Administration Guaifenesin 600 mg 03/21/19 21:29 Mucinex 12 Hr Tab PO BID PRN cough Vancomycin HCl 1,500 mg in 500 mls @ 333.333 mls/hr 03/21/19 19:00 03/23/19 06:53 Vancomycin 1,500 Mg/D5w 500 Ml IVPB 333 mls/hr Q12H [facility] Administration Levofloxacin/Dextrose 750 mg in 150 mls @ 100 mls/hr 03/22/19 19:00 03/23/19 00:35 Levaquin 750 Mg/D5w 150 Ml IVPB Infused Q24H [facility] Infusion Metronidazole 500 mg in 100 mls @ 100 mls/hr 03/22/19 18:00 03/23/19 06:33 Flagyl 500 Mg/Iso Soln 100 Ml IVPB Infused Q6H [facility] Lactobacillus Acidophilus 1 tablet 03/22/19 09:00 03/22/19 18:28 Lactinex Chewable Tablet PO 04/21/19 09:01 1 tablet BID [facility] Administration Loratadine 10 mg 03/21/19 09:00 03/22/19 11:30 Claritin PO Not Given QAM [facility] Morphine Sulfate 30 mg 03/21/19 09:00 03/22/19 21:19 Ms Contin PO 30 mg Q12H [facility] Administration Ondansetron HCl 4 mg 03/20/19 22:06 03/22/19 22:32 Zofran Inj IV PUSH 4 mg Q4H PRN Administration Nausea And Vomiting Potassium Chloride 20 meq 03/22/19 17:00 03/22/19 18:27 Kcl Tablet PO 20 meq BIDWM [facility] Administration Fluticasone/Salmeterol 2 puff 03/21/19 08:00 03/22/19 19:48 Advair Hfa 230-21 Mcg (*Sp) Inhaler INHALATION 2 puff Q12HRT [facility] Administration Sertraline HCl 50 mg 03/21/19 09:00 03/22/19 08:03 Zoloft PO 50 mg DAILY [facility] Administration Tiotropium [place] 1 cap 03/21/19 09:00 03/22/19 08:09 Spiriva INHALATION 1 cap DAILY [facility] Administration Vitamin D 2,000 unit 03/21/19 09:00 03/22/19 11:30 Vitamin D PO Not Given DAILY [facility] Radiology Results: ITS Impressions Abdomen/Pelvis CT 03/20/19 17:09 IMPRESSION:
--- NOTE | 2019-03-23 08:36 | PM.IMPN ---
Progress Note: A&P Assessment and Plan (1) Severe sepsis: Code(s): A41.9 - Sepsis, unspecified organism; R65.20 - Severe sepsis without septic shock Status: Acute Assessment and Plan: The patient meets for severe sepsis on arrival with leukocytosis at 26,200, with a left shift and lactic acidosis, tachycardic heart rate, with a source of infection being infectious colitis. Blood cultures and stool cultures are pending. The patient was started on IV antibiotics and IV fluids. Continue monitoring patients vitals, leukocytosis and symptoms. (2) Colitis: Code(s): K52.9 - Noninfective gastroenteritis and colitis, unspecified Status: Acute Assessment and Plan: This puts the patient at high risk of developing C diff colitis with chronic antibiotic use. The patient began having symptoms of nausea, vomiting, abdominal pain, abdominal distension, and diarrhea over the last few days. CT abdomen pelvis showed diarrhea with wall thickening in the distal colon which demonstrates colitis which could be acute, chronic or acute on chronic. Dr. Linton GI specialist was consulted from the ER and evaluated the patient and believes this could be related to infectious colitis and recommend continuing IV antibiotics at this time and monitoring patient's symptoms. At this time, the patient is eating without any issues. Still having intermittent nausea and abdominal distention and bloating. She is not having anymore diarrhea. Due to the patient's significant history for antibiotic use due to recurrent right knee infections I will also consult Dr. Bishop infectious Disease on the case for further recommendations for antibiotic use at this time. I talked to Dr. Bishop about the patients History and IV Vancomycin use. He recommended continuing IV Vancomycin 1.5 g Q12hrs and to start PO Vancomycin for possible C. difficile infection. 03/22/2019: C. diff culture was Negative. I discontinued PO Vancomycin and started the patient back on IV Levaquin and Flagyl. 03/23/2019: Dr. Bishop evaluated the patient and recommended Cefuroxime PO for 7 days (#1/7)and continue IV Vancomycin for right leg infection until patient follows up with [facility]. Will continue monitoring the patient's symptoms. Continue IV antibiotics. Input from GI and Infectious Disease is greatly appreciated at this time. (3) Acute hypokalemia: Code(s): E87.6 - Hypokalemia Status: Acute Assessment and Plan: The patient had hypokalemia on admission. This mornng her potassium was 3.9. stable. Patient's magnesium was within normal limits. (4) Recurrent cellulitis: Code(s): L03.90 - Cellulitis, unspecified Status: Acute Assessment and Plan: The patient has been on chronic antibiotics for recurring right knee cellulitis. February 2019 she was on rifampin and Bactrim and after she was discharged from [facility] 03/07/2019 she was continued on IV vancomycin. She is currently on IV vancomycin 1.5 g q.12hr and her next trough is due to 03/22/2019. At this time her right knee has some slight erythema and edema. Started back on IV Vancomycin as recommended by Dr. Bishop over the phone after giving her history and present illness. I will order a right knee x-ray at this time. Consult Dr. Bishop on the case. I will also obtain records from [facility] so we have more information about the patient's underlying history, diagnosis, antibiotic usage. She is not currently on IV vancomycin at this time but I will discuss this with Dr. Bishop when he calls me back. Continue monitoring patient's symptoms. Finally received the patient's past medical records from [facility]. 04/2018 patient went to [facility] status post fall and was found to have a comminuted periprosthetic distal femur fracture. She underwe
[2019-03-23] MEDS: ONDANSETRON INJ 4 MG/2 ML VIAL IV PUSH ×2 (09:10→17:34)
[2019-03-23] MEDS: SERTRALINE HCL 50 MG TABLET PO (09:15)
[2019-03-23] MEDS: LORATADINE 10 MG TABLET PO (10:52)
[2019-03-23] MEDS: MORPHINE SULFATE 30 MG TABCR PO ×2 (10:52→22:22)
[2019-03-23] MEDS: CYANOCOBALAMIN 1,000 MCG TABLET 1000 MCG PO (10:53)
[2019-03-23] MEDS: FUROSEMIDE 40 MG TABLET PO ×2 (10:53→17:29)
[2019-03-23] MEDS: CHOLECALCIFEROL 1,000 UNIT TABLET 2000 UNITS PO (10:53)
[2019-03-23] MEDS: ACIDOPHILUS/BULGARICUS CHEWABLE TABLET 1 TABLET PO ×2 (10:53→17:29)
[2019-03-23] MEDS: FOLIC ACID 1 MG TABLET PO (10:53)
[2019-03-23] MEDS: POTASSIUM CHLORIDE 20 MEQ TABLET.ER PO ×2 (10:54→17:29)
[2019-03-23] MEDS: FERROUS SULFATE 324 MG TABLET PO (10:54)
--- NOTE | 2019-03-23 11:56 | PC.NURSE ---
Gave 0900 meds late due to patient's nausea.
--- NOTE | 2019-03-23 13:05 | WPDINFPN2 ---
Progress Note: A&P Assessment and Plan (1) Nausea vomiting and diarrhea: Code(s): R11.2 - Nausea with vomiting, unspecified; R19.7 - Diarrhea, unspecified Status: Acute Assessment and Plan: 1. Abd pain and chronic diarrhea, with suspected colitis, C diff assay NR 2. MRSA infection R knee 3. PCN allergy REC Cefuroxime x 7 days additional. IV Vanc to continue, monitoring and stop date per my colleagues at [facility]. Call if Qs Subjective Date/time seen: 03/23/19 13:05 Objective Data Vital Signs Vital Signs: Vital Signs - 24 hr 03/22/19 14:00 03/22/19 19:52 03/22/19 22:00 Temperature 36.9 C 36.4 C Pulse Rate 85 107 H 91 Respiratory Rate 18 18 22 H Blood Pressure 150/61 H 115/40 L Pulse Oximetry 99 97 97 03/23/19 06:00 Temperature 36.5 C Pulse Rate 80 Respiratory Rate 20 Blood Pressure 143/48 H Pulse Oximetry 97 Intake/Output Intake/Output: Intake & Output 03/20/19 03/21/19 03/22/19 03/23/19 23:59 23:59 23:59 23:59 Intake Total 1250 4150 4445 1160 Balance 1250 4150 4445 1160 Meds/Results Medications: Active Medications Generic Name Dose Route Start Last Admin Trade Name Freq PRN Reason Stop Dose Admin Acetaminophen 650 mg 03/20/19 22:06 03/21/19 17:24 Tylenol Tablet PO 650 mg Q4H PRN Administration Fever or pain 1-3 Albuterol 2.5 mg 03/20/19 22:08 Albuterol Sulf Neb 2.5mg/0.5ml INHALATION Q4H PRN Dyspnea Albuterol 2 puff 03/21/19 21:29 Proventil Hfa INHALATION QID PRN Dyspnea Cyanocobalamin 1,000 mcg 03/21/19 09:00 03/23/19 10:53 Vitamin B-12 Tab PO 1,000 mcg QAM [facility] Administration Ferrous Sulfate 324 mg 03/21/19 08:00 03/23/19 10:54 Ferrous Sulfate PO 324 mg DAILY@0800 [facility] Administration Folic Acid 1 mg 03/21/19 09:00 03/23/19 10:53 Folic Acid PO 1 mg DAILY [facility] Administration Furosemide 40 mg 03/22/19 17:00 03/23/19 10:53 Lasix Tablet PO 40 mg BID [facility] Administration Guaifenesin 600 mg 03/21/19 21:29 Mucinex 12 Hr Tab PO BID PRN cough Vancomycin HCl 1,500 mg in 500 mls @ 333.333 mls/hr 03/21/19 19:00 03/23/19 09:14 Vancomycin 1,500 Mg/D5w 500 Ml IVPB Infused Q12H [facility] In[facility] Levofloxacin/Dextrose 750 mg in 150 mls @ 100 mls/hr 03/22/19 19:00 03/23/19 00:35 Levaquin 750 Mg/D5w 150 Ml IVPB Infused Q24H [facility] In[facility] Metronidazole 500 mg in 100 mls @ 100 mls/hr 03/22/19 18:00 03/23/19 10:55 Flagyl 500 Mg/Iso Soln 100 Ml IVPB 100 mls/hr Q6H [facility] Administration Lactobacillus Acidophilus 1 tablet 03/22/19 09:00 03/23/19 10:53 Lactinex Chewable Tablet PO 04/21/19 09:01 1 tablet BID [facility] Administration Loratadine 10 mg 03/21/19 09:00 03/23/19 10:52 Claritin PO 10 mg QAM [facility] Administration Morphine Sulfate 30 mg 03/21/19 09:00 03/23/19 10:52 Ms Contin PO 30 mg Q12H [facility] Administration Ondansetron HCl 4 mg 03/20/19 22:06 03/23/19 09:10 Zofran Inj IV PUSH 4 mg Q4H PRN Administration Nausea And Vomiting Potassium Chloride 20 meq 03/22/19 17:00 03/23/19 10:54 Kcl Tablet PO 20 meq BIDWM [facility] Administration Fluticasone/Salmeterol 2 puff 03/21/19 08:00 03/23/19 09:20 Advair Hfa 230-21 Mcg (*Sp) Inhaler INHALATION Not Given Q12HRT [facility] Sertraline HCl 50 mg 03/21/19 09:00 03/23/19 09:15 Zoloft PO 50 mg DAILY [facility] Administration Tiotropium [place] 1 cap 03/21/19 09:00 03/23/19 09:21 Spiriva INHALATION Not Given DAILY [facility] Vitamin D 2,000 unit 03/21/19 09:00 03/23/19 10:53 Vitamin D PO 2,000 unit DAILY [facility] Administration Radiology Results: ITS Impressions Abdomen/Pelvis CT 03/20/19 17:09 IMPRESSION: 1. Diarrhea with wall thickening in the distal colon which demonstrates and a haustral pattern consistent with colitis which could be either acute, chronic or acute on chronic. Differential would include inflammatory colitis including ulcer
[2019-03-23 14:00] VITALS: BP 102/87; PULSE 80; RESP 20; TEMP 36.7; O2SAT 91
--- NOTE | 2019-03-23 14:09 | PCCCNOTE ---
On 03/23/19, the student, [Avis Jimenez ], provided care and completed [email or web address] documentation on this patient. I have reviewed the student's documentation and agree with the findings.
--- NOTE | 2019-03-23 18:02 | CONS_ITS ---
DATE OF CONSULTATION: 03/23/2019 REASON FOR CONSULTATION: Diarrhea. HISTORY OF PRESENT ILLNESS: The patient is a 63-year-old female, who had a right leg fracture requiring distal femur hardware in August. She was hospitalized at [facility] and was found to have an MRSA infection apparently adjacent to the prosthesis, resulting at least in part poor bone healing. She was given vancomycin at that time, though duration is not available. She was readmitted to [facility] on March 03. Full records are not available, but she reports she was there for approximately 2 days. She was never given a diagnosis, but her presenting symptoms included marked worsening of right knee pain. Her pain at this point is tolerable as long as there is no manipulation of the leg. She was admitted to this hospital on March 20 due to new onset of abdominal pain with vomiting. She reported to others 3 days' duration. She reported to me 1 day's duration. She also notes 5-6 months of diarrhea manifested by liquid to soft bowel movements 5-10 times per day. She has never been given a diagnosis for the diarrhea. She also reported subjective abdominal distention in the setting of morbid obesity. Here, the patient underwent a CT and also had white blood cell count elevation before it demonstrated distal colon wall thickening and evidence of diarrhea. She was admitted and initially given levofloxacin, metronidazole, and oral vancomycin was also given, now stopped. Consultation requested. Her white blood cell count rapidly returned to normal. She has had no further vomiting and in fact has an appetite without nausea. She has had no previous such episodes. The vancomycin IV continues. She was not told of a potential stop date nor of any plans in the near future for repair of her periprosthetic fracture. ALLERGIES: PENICILLIN CAUSED A RASH IN THE DISTANT PAST. PRESENT MEDICATIONS: Reviewed. No immunosuppressants systemically. She previously had been on trimethoprim sulfa and doxycycline suppression until vancomycin was resumed in February. PAST MEDICAL AND SURGICAL HISTORY: In addition to the above, anemia, anxiety, COPD, depression, fibromyalgia, peripheral vascular disease, appendectomy, cardiac cath, colonoscopy, EGD, left total knee arthroplasty, cholecystectomy. FAMILY HISTORY: [place], asthma, COPD. HABITS: Ex-smoker. No alcohol. SOCIAL HISTORY: She is a [facility] resident most recently. No family at the bedside. Customarily sees Dr. Lay. She is . REVIEW OF SYSTEMS: GI, , skin, musculoskeletal, constitutional, otherwise negative. PHYSICAL EXAMINATION: GENERAL: This is a middle-aged female, who appears older than her actual age. No acute distress. VITAL SIGNS: Afebrile since arrival, 143/48, 80, 20, 97%. SKIN: No generalized rashes. Warm and dry. EENT: The pupils equal, round, reactive to light. The conjunctivae are normal. Oropharynx, oral mucosa also normal. Dry mucous membranes. NECK: No mass, thyromegaly, meningismus. LUNGS: Clear to auscultation. CARDIAC: Regular rate and rhythm. No murmur, gallop, or rub. No ectopy. ABDOMEN: Morbidly obese, nontender. Normal bowel sounds. EXTREMITIES: She has muscle atrophy over the distal right femur and an anterior surgical scar. She has 2+ nonpitting edema throughout the leg. There is no warmth, erythema, sinus tracts or wound dehiscence. LABORATORY DATA: Blood cultures from the 7th, no growth after 3 days incubation. MRSA screen was negative. C difficile assay was nonreactive. E coli shiga toxin negative. White blood cell count 7.3 with 9.5 yesterday, hemoglobin 10.9, platelets are 290. Differential with mild lymphopenia, relatively speaking, 23% monocytes. She has mild hypochloremia and
[2019-03-23 21:08] VITALS: O2SAT 96
[2019-03-23 21:34] VITALS: BP 128/40; PULSE 77; RESP 96; TEMP 36.4; O2SAT 99
[2019-03-23] MEDS: CEFUROXIME AXETIL 250 MG TABLET 500 MG PO (22:19)
[2019-03-24 06:00] VITALS: BP 122/64; PULSE 73; RESP 20; TEMP 36.2; O2SAT 99
[2019-03-24 06:04] LABS: Basophils Absolute Auto 0.1 K/mm3 (0.0-0.1); Basophils Percent Auto 1.4 % (0.2-1.2); Eosinophils Absolute Auto 0.4 K/mm3 (0-0.3); Eosinophils Percent Auto 4.3 % (0-4.4); Hematocrit 37.2 % (37.0-47.0); Hemoglobin 11.4 g/dL (12.0-15.0); Immature Granulocyte Absolute 0.41 K/mm3 (0.00-0.031); Immature Granulocyte Percent A 4.5 % (0-0.5); Lymphocytes Absolute Auto 3.26 K/mm3 (0.9-3.2); Lymphocytes Percent Auto 35.9 % (18.3-44.2); Mean Corpuscular HGB Conc 30.6 g/dl (32-36); Mean Corpuscular Volume 94.7 fl (80-100); Mean Platelet Volume 10.4 fl (7.4-10.4); Monocytes Absolute Auto 0.9 K/mm3 (0.1-0.6); Monocytes Percent Auto 10.3 % (2.6-8.5); Neutrophils Percent Auto 43.6 % (45.5-73.1); Platelet Count Result 280 k/mm3 (150-375); Red Blood Count 3.93 M/mm3 (4.2-5.4); Red Cell Distribution Width 13.6 % (11.5-14.5); White Blood Count 9.1 K/mm3 (4.5-10.0)
[2019-03-24 06:16] LABS: Blood Urea Nitrogen 6 mg/dL (7-17); Carbon Dioxide 38 mmol/L (22-30); Chloride 92 mmol/L (98-107); Estimated CRCL calculation 176 ml/min; Estimated Glomerular Filt Rate > 60; Glucose 97 mg/dL (65-105); Magnesium 1.7 mg/dL (1.6-2.3); Potassium 3.9 mmol/L (3.4-5.0); Sodium 136 mmol/L (137-145)
[2019-03-24 09:10] VITALS: PULSE 81; RESP 18; O2SAT 97
[2019-03-24] MEDS: ONDANSETRON INJ 4 MG/2 ML VIAL IV PUSH (10:13)
--- NOTE | 2019-03-24 10:47 | WPDGICN ---
Assessment and Plan Additional Plan Patient comfortable at rest this morning. Reports no recent bowel movements. Still nauseated with oral intake. Physical exam reveals her to be afebrile. Vital signs stable. HEENT exam unremarkable. Lungs are clear. Abdomen is obese. Bowel sounds diminished. She has mild diffuse tympany. Laboratory work stool cultures negative to date. WBC 9.1, hemoglobin 11.4, hematocrit 37.2, CT scan was repeated. Sigmoid colitis still noted on CT scan.(previous CT scan was only 4 days ago.) Impression colitis. [place] to most likely be related to infectious etiology. Given her abdominal distention. She appears to have some component of ileus. Plan is to continue IV antibiotics. Colonoscopy will be deferred until bowel function returns. Plan is for antibiotics as per the Infectious Disease service. His C difficile toxin is negative. We will follow with you and continue antibiotics. GI Consult Note Consult date/time: 03/24/19 10:47 HPI: Ania Russell is a 63 year old female [facility] Past Medical History Medical History (Updated 03/22/19 @ 16:26 by Silvina Hull PA-C) Anemia Antibiotic long-term use Due to recurrent infections to her right femoral fracture Anxiety Cellulitis Chronic respiratory failure Uses 3L via [place] COPD (chronic obstructive pulmonary disease) Depression Fibromyalgia Lymphedema Patellar bursitis PVD (peripheral vascular disease) Right femoral fracture With recurrent infections Surgical History Surgical History History of appendectomy History of cardiac catheterization History of colonoscopy History of esophagogastroduodenoscopy (EGD) History of left knee replacement History of right knee joint replacement Hx of cholecystectomy Surgical history unknown Family History Family History Father Acute myocardial infarction Mother Asthma Chronic obstructive pulmonary disease Social History Social History Smoking packs per day: 1 Smoking cigarettes per day: 20.0 Years smoked: 5 Smoking pack-years: 5.00 Smoking status: Former smoker Alcohol intake: never Substance use: never Living arrangements: correction Additional living arrangements comments: Lives at [facility] Gender identity (if verbalized by the patient): Female Spiritual care concerns: No Agree to blood products: Yes Meds Home Medications and Allergies Home Medications Medication Instructions Recorded Confirmed Type Lactobacillus acidophilus 100 mg PO DAILY 03/20/19 03/20/19 History [Acidophilus] acetaminophen [Tylenol] 650 mg PO Q4-6H PRN 03/20/19 03/20/19 History acidophilus-pectin, citrus 1 cap PO BID 03/20/19 03/20/19 History [Acidophilus Probiotic] albuterol sulfate 0.63 mg INHALATION Q4H PRN 03/20/19 03/20/19 History albuterol sulfate [Ventolin HFA] 2 puff INHALATION QID PRN 03/20/19 03/20/19 History rqwexsjw-cjolsjcyg-mtebdbx HMB 1 ea PO BID 03/20/19 03/20/19 History [Ahmet] ascorbic acid (vitamin C) 500 mg PO BID 03/20/19 03/20/19 History calcium carbonate [Calcium 500] 500 mg PO BID 03/20/19 03/20/19 History cholecalciferol (vitamin D3) 2,000 unit PO DAILY 03/20/19 03/20/19 History [Vitamin D3] cyanocobalamin (vitamin B-12) 100 mcg PO DAILY 03/20/19 03/20/19 History ferrous sulfate [iron] 325 mg PO DAILY 03/20/19 03/20/19 History fluticasone propion-salmeterol 1 inh INHALATION Q12H 03/20/19 03/20/19 History [Advair Diskus] folic acid 1 mg PO DAILY 03/20/19 03/20/19 History furosemide 40 mg PO BID 03/20/19 03/20/19 History guaifenesin [Mucinex] 600 mg PO BID 03/20/19 03/20/19 History levocetirizine 5 mg PO DAILY 03/20/19 03/20/19 History morphine 30 mg PO Q12H 03/20/19 03/20/19 History lffhjnvm-wvw-gzqmamn fumarate 15 mg PO DAILY 03/20/19
[2019-03-24] MEDS: POTASSIUM CHLORIDE 20 MEQ TABLET.ER PO ×2 (10:53→16:45)
[2019-03-24] MEDS: MORPHINE SULFATE 30 MG TABCR PO ×2 (10:53→20:17)
[2019-03-24] MEDS: CYANOCOBALAMIN 1,000 MCG TABLET 1000 MCG PO (10:53)
[2019-03-24] MEDS: SERTRALINE HCL 50 MG TABLET PO (10:53)
[2019-03-24] MEDS: LORATADINE 10 MG TABLET PO (10:54)
[2019-03-24] MEDS: FERROUS SULFATE 324 MG TABLET PO (10:54)
[2019-03-24] MEDS: ACIDOPHILUS/BULGARICUS CHEWABLE TABLET 1 TABLET PO ×2 (10:54→16:45)
[2019-03-24] MEDS: FOLIC ACID 1 MG TABLET PO (10:54)
[2019-03-24] MEDS: FUROSEMIDE 40 MG TABLET PO ×2 (10:54→16:45)
[2019-03-24] MEDS: CEFUROXIME AXETIL 250 MG TABLET 500 MG PO ×2 (10:54→20:17)
--- NOTE | 2019-03-24 10:54 | PC.NURSE ---
Patient requested morning medications be given now due to nausea. Nausea subsided with IV zofran administration.
--- NOTE | 2019-03-24 11:06 | PC.NURSE ---
Called pharmacy and requested 0900 dose of Vitamin D be sent to floor for administration.
[2019-03-24] MEDS: CHOLECALCIFEROL 1,000 UNIT TABLET 2000 UNITS PO (12:19)
[2019-03-24 14:00] VITALS: BP 131/45; PULSE 78; RESP 16; TEMP 36.6; O2SAT 98
--- NOTE | 2019-03-24 20:00 | PM.IMPN ---
Progress Note: A&P Assessment and Plan (1) Severe sepsis: Code(s): A41.9 - Sepsis, unspecified organism; R65.20 - Severe sepsis without septic shock Status: Acute Assessment and Plan: The patient met criteria for severe sepsis on arrival with leukocytosis at 26,200, with a left shift and lactic acidosis, tachycardic heart rate, with a source of infection being infectious colitis vs recurrent cellulitis of lower leg. Blood cultures negative to date and stool cultures are negative other than campylobacter culture pending Continue antibiotics per ID recommendations Continue monitoring patients vitals, leukocytosis and symptoms. (2) Colitis: Code(s): K52.9 - Noninfective gastroenteritis and colitis, unspecified Status: Acute Assessment and Plan: Patient at higher risk of developing C diff colitis with chronic antibiotic use. The patient began having symptoms of nausea, vomiting, abdominal pain, abdominal distension, and diarrhea over the previous few days prior to arival. CT abdomen pelvis showed diarrhea with wall thickening in the distal colon which demonstrates colitis which could be acute, chronic or acute on chronic. Dr. Linton GI specialist was consulted from the ER and evaluated the patient and believes this could be related to infectious colitis and recommend continuing IV antibiotics at this time and monitoring patient's symptoms. Patient is eating without any issues, although still somewhat nauseas at times; still distended; no diarrhea. Dr. Bishop infectious Disease consulted and appreciate recommendations. Will continue ID recommended Cefuroxime PO for 7 days (#2/7)and continue IV Vancomycin for right leg infection until patient follows up with [facility]. Will continue monitoring the patient's symptoms. Continue IV antibiotics. Input from GI and Infectious Disease is greatly appreciated at this time. (3) Acute hypokalemia: Code(s): E87.6 - Hypokalemia Status: Acute Assessment and Plan: The patient had hypokalemia on admission. This morning her potassium was 3.9. stable. Trend daily Replace as needed (4) Recurrent cellulitis: Code(s): L03.90 - Cellulitis, unspecified Status: Acute Assessment and Plan: The patient has been on chronic antibiotics for recurring right knee cellulitis. February 2019 she was on rifampin and Bactrim and after she was discharged from [facility] 03/07/2019 she was continued on IV vancomycin. continue Antibiotics (IV vanc and PO cefuroxime) per ID recommendations which are greatly appreciated (5) Antibiotic long-term use: Code(s): Z79.2 - longterm (current) use of antibiotics Status: Inactive Assessment and Plan: See above under recurrent cellulitis (6) Nausea vomiting and diarrhea: Code(s): R11.2 - Nausea with vomiting, unspecified; R19.7 - Diarrhea, unspecified Status: Acute Assessment and Plan: She is having intermittent nausea at times, no more vomiting. She is not having anymore diarrhea. Continue symptomatic treatment for nausea and vomiting. Campylobacter culture pending; other stool cultures negative thus far (7) Abdominal pain: Code(s): R10.9 - Unspecified abdominal pain Status: Acute Assessment and Plan: Patient reports abdominal distension and tenderness with any movement. Continue as needed pain medications for abdominal pain. 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
[2019-03-24 21:20] VITALS: O2SAT 99
[2019-03-24 22:00] VITALS: BP 124/42; PULSE 84; RESP 20; TEMP 36.6; O2SAT 100
[2019-03-24] MEDS: ACETAMINOPHEN 325 MG TABLET 650 MG PO (23:37)
[2019-03-25 06:00] VITALS: BP 126/44; PULSE 85; RESP 20; TEMP 36.6; O2SAT 98
[2019-03-25 06:08] LABS: Hematocrit 37.9 % (37.0-47.0); Hemoglobin 11.6 g/dL (12.0-15.0); Mean Corpuscular HGB Conc 30.6 g/dl (32-36); Mean Corpuscular Hemoglobin 28.6 pg (26-34); Mean Corpuscular Volume 93.3 fl (80-100); Mean Platelet Volume 10.3 fl (7.4-10.4); Platelet Count Result 363 k/mm3 (150-375); Red Blood Count 4.06 M/mm3 (4.2-5.4); Red Cell Distribution Width 13.8 % (11.5-14.5); White Blood Count 12.1 K/mm3 (4.5-10.0)
[2019-03-25 06:13] LABS: Blood Urea Nitrogen 7 mg/dL (7-17); Carbon Dioxide > 40 mmol/L (22-30); Chloride 90 mmol/L (98-107); Estimated CRCL calculation 176 ml/min; Estimated Glomerular Filt Rate > 60; Glucose 96 mg/dL (65-105); Magnesium 1.8 mg/dL (1.6-2.3); Potassium 4.1 mmol/L (3.4-5.0); Sodium 135 mmol/L (137-145)
[2019-03-25 06:50] LABS: Band Neutrophils Percent 3 % (0-6); Eosinophils Absolute Manual 0.12 K/mm3 (0.02-0.5); Eosinophils Percent Manual 1 % (0-4); Lymphocytes Absolute Manual 4.59 K/mm3 (1.1-4.5); Metamyelocytes Percent 1 %; Monocytes Absolute Manual 1.08 K/mm3 (0.1-0.90); Monocytes Percent Manual 9 % (3-9); Myelocytes Percent 1 %; Neutrophils Absolute Manual 6.05 K/mm3 (1.7-7.2); Neutrophils Percent Manual 47 % (46-73); Total Cells Counted 100
[2019-03-25 06:51] LABS: Atypical Lymphocytes Present; Hypochromasia 2+ (NORMAL); Large Platelets Present; Platelet Estimate Adequate (Adequate)
--- NOTE | 2019-03-25 08:07 | WPDGIPROGNO ---
Progress Note: A&P Additional Plan Patient has had no recent bowel movements. She states she still has some nausea. Tolerating liquid diet without difficulty. Physical exam reveals abdomen to be obese. Bowel sounds are present but diminished. Abdomen is tympanic. CT scan suggest colitis. WBC 12.1. Hemoglobin 11.6. Stool cultures negative to date today. Impression colitis. Appears to be an infectious colitis. Patient appears to have an ileus that is slowly resolving. Plan is to continue intravenous antibiotics. Keep on liquid diet until she passes flatus and or stools. At that time advance diet. Colonoscopy suggested. This cannot be performed until ileus has improved. Hopefully we can arrange this as an outpatient later. Activity limited by recent orthopedic problems. She will need ongoing orthopedic follow-up. Subjective Date/time seen: 03/25/19 08:07 Objective Data Vital Signs Vital Signs: Vital Signs - 24 hr 03/24/19 09:10 03/24/19 14:00 03/24/19 21:20 Temperature 36.6 C Pulse Rate 81 78 Respiratory Rate 18 16 Blood Pressure 131/45 L Pulse Oximetry 97 98 99 03/24/19 22:00 03/25/19 06:00 Temperature 36.6 C 36.6 C Pulse Rate 84 85 Respiratory Rate 20 20 Blood Pressure 124/42 L 126/44 L Pulse Oximetry 100 98 Intake/Output Intake/Output: Intake & Output 03/22/19 03/23/19 03/24/19 03/25/19 23:59 23:59 23:59 23:59 Intake Total 4445 2870 2600 350 Balance 4445 2870 2600 350 Meds/Results Medications: Active Medications Generic Name Dose Route Start Last Admin Trade Name Freq PRN Reason Stop Dose Admin Acetaminophen 650 mg 03/20/19 22:06 03/24/19 23:37 Tylenol Tablet PO 650 mg Q4H PRN Administration Fever or pain 1-3 Albuterol 2.5 mg 03/20/19 22:08 Albuterol Sulf Neb 2.5mg/0.5ml INHALATION Q4H PRN Dyspnea Albuterol 2 puff 03/21/19 21:29 Proventil Hfa INHALATION QID PRN Dyspnea Cefuroxime Axetil 500 mg 03/23/19 21:00 03/24/19 20:17 Ceftin PO 03/30/19 09:01 500 mg Q12HR [facility] Administration Cyanocobalamin 1,000 mcg 03/21/19 09:00 03/24/19 10:53 Vitamin B-12 Tab PO 1,000 mcg QAM [facility] Administration Ferrous Sulfate 324 mg 03/21/19 08:00 03/24/19 10:54 Ferrous Sulfate PO 324 mg DAILY@0800 [facility]OTT Administration Folic Acid 1 mg 03/21/19 09:00 03/24/19 10:54 Folic Acid PO 1 mg DAILY [facility] Administration Furosemide 40 mg 03/22/19 17:00 03/24/19 16:45 Lasix Tablet PO 40 mg BID [facility] Administration Guaifenesin 600 mg 03/21/19 21:29 Mucinex 12 Hr Tab PO BID PRN cough Vancomycin HCl 1,500 mg in 500 mls @ 333.333 mls/hr 03/21/19 19:00 03/25/19 06:41 Vancomycin 1,500 Mg/D5w 500 Ml IVPB 333 mls/hr Q12H [facility] Administration Lactobacillus Acidophilus 1 tablet 03/22/19 09:00 03/24/19 16:45 Lactinex Chewable Tablet PO 04/21/19 09:01 1 tablet BID [facility]OTT Administration Loratadine 10 mg 03/21/19 09:00 03/24/19 10:54 Claritin PO 10 mg QAM [facility] Administration Morphine Sulfate 30 mg 03/21/19 09:00 03/24/19 20:17 Ms Contin PO 30 mg Q12H [facility] Administration Ondansetron HCl 4 mg 03/20/19 22:06 03/24/19 10:13 Zofran Inj IV PUSH 4 mg Q4H PRN Administration Nausea And Vomiting Potassium Chloride 20 meq 03/22/19 17:00 03/24/19 16:45 Kcl Tablet PO 20 meq BIDWM [facility] Administration Fluticasone/Salmeterol 2 puff 03/21/19 08:00 03/24/19 21:20 Advair Hfa 230-21 Mcg (*Sp) Inhaler INHALATION 2 puff Q12HRT [facility] Administration Sertraline HCl 50 mg 03/21/19 09:00 03/24/19 10:53 Zoloft PO 50 mg DAILY [facility] Administration Tiotropium [place] 1 cap 03/24/19 21:00 Spiriva INHALATION HS [facility] Vitamin D 2,000 unit 03/21/19 09:00 03/24/19 12:19 Vitamin D PO 2,000 unit DAILY [facility] Administration Radiology Results: ITS Impressions Venous Doppler Study 03/21/19 16:44 IMPRESSION: 1. No
[2019-03-25 08:25] VITALS: O2SAT 98
[2019-03-25] MEDS: ONDANSETRON INJ 4 MG/2 ML VIAL IV PUSH (09:44)
[2019-03-25] MEDS: FERROUS SULFATE 324 MG TABLET PO (11:02)
[2019-03-25] MEDS: MORPHINE SULFATE 30 MG TABCR PO ×2 (11:02→21:05)
[2019-03-25] MEDS: CEFUROXIME AXETIL 250 MG TABLET 500 MG PO ×2 (11:03→21:05)
[2019-03-25] MEDS: SERTRALINE HCL 50 MG TABLET PO (11:03)
[2019-03-25] MEDS: LORATADINE 10 MG TABLET PO (11:03)
[2019-03-25] MEDS: CHOLECALCIFEROL 1,000 UNIT TABLET 2000 UNITS PO (11:03)
[2019-03-25] MEDS: POTASSIUM CHLORIDE 20 MEQ TABLET.ER PO ×2 (11:03→18:33)
[2019-03-25] MEDS: FUROSEMIDE 40 MG TABLET PO ×2 (11:04→18:33)
[2019-03-25] MEDS: FOLIC ACID 1 MG TABLET PO (11:04)
[2019-03-25] MEDS: CYANOCOBALAMIN 1,000 MCG TABLET 1000 MCG PO (11:04)
[2019-03-25] MEDS: ACIDOPHILUS/BULGARICUS CHEWABLE TABLET 1 TABLET PO ×2 (11:04→18:33)
[2019-03-25] MEDS: ACETAMINOPHEN 325 MG TABLET 650 MG PO (12:46)
[2019-03-25 14:00] VITALS: BP 127/50; PULSE 86; RESP 20; TEMP 36.6; O2SAT 97
--- NOTE | 2019-03-25 16:25 | PCCCNOTE ---
On 03/25/19, the student, [Avis Jimenez ], provided care and completed [facility] documentation on this patient. I have reviewed the student's documentation and agree with the findings.
--- NOTE | 2019-03-25 17:54 | PM.IMPN ---
Progress Note: A&P Assessment and Plan (1) Severe sepsis: Code(s): A41.9 - Sepsis, unspecified organism; R65.20 - Severe sepsis without septic shock Status: Acute Assessment and Plan: The patient met criteria for severe sepsis on arrival with leukocytosis at 26,200, with a left shift and lactic acidosis, tachycardic heart rate, with a source of infection being infectious colitis vs recurrent cellulitis of lower leg. WBC 12.1K today Blood cultures negative to date and stool cultures are negative Continue antibiotics per ID recommendations Continue monitoring patients vitals, leukocytosis and symptoms. (2) Colitis: Code(s): K52.9 - Noninfective gastroenteritis and colitis, unspecified Status: Acute Assessment and Plan: Patient at higher risk of developing C diff colitis with chronic antibiotic use. The patient began having symptoms of nausea, vomiting, abdominal pain, abdominal distension, and diarrhea over the previous few days prior to arrival. CT abdomen pelvis showed diarrhea with wall thickening in the distal colon which demonstrates colitis which could be acute, chronic or acute on chronic. Dr. Linton GI specialist was consulted from the ER and evaluated the patient and believes this could be related to infectious colitis and recommend continuing IV antibiotics at this time and monitoring patient's symptoms. Patient is eating without any issues, although still somewhat nauseas at times; still distended; no diarrhea. Dr. Bishop infectious Disease consulted and appreciate recommendations. Will continue ID recommended Cefuroxime PO for 7 days (#3/7)and continue IV Vancomycin for right leg infection until patient follows up with [facility]. Will continue monitoring the patient's symptoms. Continue IV antibiotics. Input from GI and Infectious Disease is greatly appreciated at this time. (3) Acute hypokalemia: Code(s): E87.6 - Hypokalemia Status: Acute Assessment and Plan: The patient had hypokalemia on admission. This morning her potassium was 4.1. stable. Trend daily Replace as needed (4) Recurrent cellulitis: Code(s): L03.90 - Cellulitis, unspecified Status: Acute Assessment and Plan: The patient has been on chronic antibiotics for recurring right knee cellulitis. February 2019 she was on rifampin and Bactrim and after she was discharged from [facility] 03/07/2019 she was continued on IV vancomycin. continue Antibiotics (IV vanc and PO cefuroxime) per ID recommendations which are greatly appreciated (5) Antibiotic long-term use: Code(s): Z79.2 - longterm (current) use of antibiotics Status: Inactive Assessment and Plan: See above under recurrent cellulitis (6) Nausea vomiting and diarrhea: Code(s): R11.2 - Nausea with vomiting, unspecified; R19.7 - Diarrhea, unspecified Status: Acute Assessment and Plan: She is having intermittent nausea at times, no more vomiting. She is not having anymore diarrhea. Continue symptomatic treatment for nausea and vomiting. Stool cultures negative (7) Abdominal pain: Code(s): R10.9 - Unspecified abdominal pain Status: Acute Assessment and Plan: Patient reports abdominal distension and tenderness with any movement. Continue as needed pain medications for abdominal pain. Subjective Date/time seen: 03/25/19 17:54 Interval history: Patient is a 63 yo F with history of alf antibiotic use, COPD, right femoral fracture, and lymphedema who is here for treatment of colitis and recurrent cellulitis of right knee. Patient state
[2019-03-25 19:30] VITALS: PULSE 77; RESP 16; O2SAT 98
[2019-03-25 22:00] VITALS: BP 132/42; PULSE 86; RESP 21; TEMP 36.1; O2SAT 100
[2019-03-26 05:54] LABS: Hematocrit 39.6 % (37.0-47.0); Hemoglobin 12.2 g/dL (12.0-15.0); Mean Corpuscular HGB Conc 30.8 g/dl (32-36); Mean Corpuscular Hemoglobin 28.8 pg (26-34); Mean Corpuscular Volume 93.6 fl (80-100); Mean Platelet Volume 9.9 fl (7.4-10.4); Platelet Count Result 383 k/mm3 (150-375); Red Blood Count 4.23 M/mm3 (4.2-5.4); Red Cell Distribution Width 13.7 % (11.5-14.5); White Blood Count 15.5 K/mm3 (4.5-10.0)
[2019-03-26 06:00] VITALS: BP 120/54; PULSE 83; RESP 20; TEMP 36.4; O2SAT 98
[2019-03-26 06:16] LABS: Blood Urea Nitrogen 7 mg/dL (7-17); Carbon Dioxide 38 mmol/L (22-30); Chloride 92 mmol/L (98-107); Estimated CRCL calculation 176 ml/min; Estimated Glomerular Filt Rate > 60; Glucose 91 mg/dL (65-105); Magnesium 1.8 mg/dL (1.6-2.3); Potassium 4.4 mmol/L (3.4-5.0); Sodium 136 mmol/L (137-145)
[2019-03-26 06:22] LABS: Vancomycin Trough 19.7 ug/mL (10.0-20.0)
[2019-03-26 06:25] LABS: Atypical Lymphocytes Present; Band Neutrophils Percent 1 % (0-6); Eosinophils Absolute Manual 0.77 K/mm3 (0.02-0.5); Eosinophils Percent Manual 5 % (0-4); Lymphocytes Absolute Manual 4.65 K/mm3 (1.1-4.5); Monocytes Absolute Manual 2.17 K/mm3 (0.1-0.90); Monocytes Percent Manual 14 % (3-9); Neutrophils Percent Manual 50 % (46-73); Platelet Estimate Increased (Adequate); Total Cells Counted 100
[2019-03-26 06:26] LABS: Hypochromasia 2+ (NORMAL)
[2019-03-26] MEDS: SERTRALINE HCL 50 MG TABLET PO (08:18)
[2019-03-26] MEDS: CEFUROXIME AXETIL 250 MG TABLET 500 MG PO ×2 (08:18→21:04)
[2019-03-26] MEDS: CHOLECALCIFEROL 1,000 UNIT TABLET 2000 UNITS PO (08:18)
[2019-03-26] MEDS: FERROUS SULFATE 324 MG TABLET PO (08:19)
[2019-03-26] MEDS: FUROSEMIDE 40 MG TABLET PO ×2 (08:19→17:05)
[2019-03-26] MEDS: FOLIC ACID 1 MG TABLET PO (08:19)
[2019-03-26] MEDS: CYANOCOBALAMIN 1,000 MCG TABLET 1000 MCG PO (08:19)
[2019-03-26] MEDS: LORATADINE 10 MG TABLET PO (08:19)
[2019-03-26] MEDS: ACIDOPHILUS/BULGARICUS CHEWABLE TABLET 1 TABLET PO ×2 (08:19→17:06)
[2019-03-26] MEDS: ONDANSETRON INJ 4 MG/2 ML VIAL IV PUSH (08:22)
[2019-03-26] MEDS: MORPHINE SULFATE 30 MG TABCR PO ×2 (08:22→21:05)
--- NOTE | 2019-03-26 08:35 | WPDGIPROGNO ---
Progress Note: A&P Additional Plan Patient feels much better today. Has begun to pass gas and flatus easily. Physical exam reveals patient to be alert. Abdomen is obese. Bowel sounds are present. Abdomen is much softer today. Impression 1. Colitis. [place] to be infectious colitis. Stool cultures have been negative to date however. 2. Ileus. Clinically improving. Now passing flatus. 3. Poor bone healing. She is unable to ambulate because of lower extremity orthopedic problems. Follow up with establish orthopedic surgery after discharge. Plan is to advance diet slowly. Continue broad-spectrum antibiotics for a 10 day course. Outpatient colonoscopy in several weeks advised. Subjective Date/time seen: 03/26/19 08:35 Objective Data Vital Signs Vital Signs: Vital Signs - 24 hr 03/25/19 14:00 03/25/19 19:30 03/25/19 22:00 Temperature 36.6 C 36.1 C L Pulse Rate 86 77 86 Respiratory Rate 20 16 21 H Blood Pressure 127/50 L 132/42 L Pulse Oximetry 97 98 100 03/26/19 06:00 Temperature 36.4 C L Pulse Rate 83 Respiratory Rate 20 Blood Pressure 120/54 L Pulse Oximetry 98 Intake/Output Intake/Output: Intake & Output 03/23/19 03/24/19 03/25/19 03/26/19 23:59 23:59 23:59 23:59 Intake Total 2870 2600 2620 600 Balance 2870 2600 2620 600 Meds/Results Medications: Active Medications Generic Name Dose Route Start Last Admin Trade Name Freq PRN Reason Stop Dose Admin Acetaminophen 650 mg 03/20/19 22:06 03/25/19 12:46 Tylenol Tablet PO 650 mg Q4H PRN Administration Fever or pain 1-3 Albuterol 2.5 mg 03/20/19 22:08 Albuterol Sulf Neb 2.5mg/0.5ml INHALATION Q4H PRN Dyspnea Albuterol 2 puff 03/21/19 21:29 Proventil Hfa INHALATION QID PRN Dyspnea Cefuroxime Axetil 500 mg 03/23/19 21:00 03/26/19 08:18 Ceftin PO 03/30/19 09:01 500 mg Q12HR [facility] Administration Cyanocobalamin 1,000 mcg 03/21/19 09:00 03/26/19 08:19 Vitamin B-12 Tab PO 1,000 mcg QAM [facility] Administration Ferrous Sulfate 324 mg 03/21/19 08:00 03/26/19 08:19 Ferrous Sulfate PO 324 mg DAILY@0800 [facility] Administration Folic Acid 1 mg 03/21/19 09:00 03/26/19 08:19 Folic Acid PO 1 mg DAILY [facility] Administration Furosemide 40 mg 03/22/19 17:00 03/26/19 08:19 Lasix Tablet PO 40 mg BID [facility] Administration Guaifenesin 600 mg 03/21/19 21:29 03/26/19 08:20 Mucinex 12 Hr Tab PO 600 mg BID PRN Administration cough Vancomycin HCl 1,500 mg in 500 mls @ 333.333 mls/hr 03/21/19 19:00 03/26/19 06:32 Vancomycin 1,500 Mg/D5w 500 Ml IVPB 333 mls/hr Q12H [facility] Administration Lactobacillus Acidophilus 1 tablet 03/22/19 09:00 03/26/19 08:19 Lactinex Chewable Tablet PO 04/21/19 09:01 1 tablet BID [facility] Administration Loratadine 10 mg 03/21/19 09:00 03/26/19 08:19 Claritin PO 10 mg QAM [facility] Administration Morphine Sulfate 30 mg 03/21/19 09:00 03/26/19 08:22 Ms Contin PO 30 mg Q12H [facility] Administration Ondansetron HCl 4 mg 03/20/19 22:06 03/26/19 08:22 Zofran Inj IV PUSH 4 mg Q4H PRN Administration Nausea And Vomiting Potassium Chloride 20 meq 03/26/19 09:00 Kcl Powder (For Liquid) PO BID [facility] Fluticasone/Salmeterol 2 puff 03/21/19 08:00 03/25/19 19:25 Advair Hfa 230-21 Mcg (*Sp) Inhaler INHALATION 2 puff Q12HRT [facility] Administration Sertraline HCl 50 mg 03/21/19 09:00 03/26/19 08:18 Zoloft PO 50 mg DAILY [facility] Administration Tiotropium [place] 1 cap 03/24/19 21:00 03/25/19 19:26 Spiriva INHALATION 1 cap HS [facility] Administration Vitamin D 2,000 unit 03/21/19 09:00 03/26/19 08:18 Vitamin D PO 2,000 unit DAILY [facility] Administration Radiology Results: ITS Impressions Venous Doppler Study 03/21/19 16:44 IMPRESSION: 1. No deep venous thrombosis in either lower limb. Knee X-Ray 03/21/19 16:46 IMPRESSION: 1. Small amount of lucency aniya
[2019-03-26] MEDS: POTASSIUM CHLORIDE 20 MEQ PACKET (FOR LIQUID) PO ×2 (09:37→17:05)
--- NOTE | 2019-03-26 12:53 | PCDIET ---
Nutrition 7 day screen Complete: Pt current nutrition is Soft and Bite Sized Level 6 Nutrition recommendation: agree Last recorded weight is 106.7 kg. Bowel Motility: passing gas at this time (ileus improving) Labs Reviewed:Na 136, WBCs 15.5 Meds Noted:Fe, Folic Acid, B12, Lasix, Lactobacillus, KCL, Vanc, Vit D Additional Notes: Seeing pt 2/2 LOS. Pt prior intake is 33% over three meals. Diet recently added and GI fx improving. Pt states appetite is growing. Pt appears well nourished, BMI morbidly obese. Pt states so far she tolerated breakfast well. Agree with lactobacillus. Plans for outpt colonoscopy. I explained ordering and encouraged good intake. We will continue to monitor for improved intake every five days.
[2019-03-26 14:00] VITALS: BP 127/55; PULSE 93; RESP 20; TEMP 36.7; O2SAT 95
[2019-03-26 15:17] VITALS: O2SAT 96
--- NOTE | 2019-03-26 18:09 | PM.IMPN ---
Progress Note: A&P Assessment and Plan (1) Severe sepsis: Code(s): A41.9 - Sepsis, unspecified organism; R65.20 - Severe sepsis without septic shock Status: Acute Assessment and Plan: The patient met criteria for severe sepsis on arrival with leukocytosis at 26,200, with a left shift and lactic acidosis, tachycardic heart rate, with a source of infection being infectious colitis vs recurrent right knee infection. WBC 15.5K today Blood cultures negative to date and stool cultures are negative Continue antibiotics per ID recommendations Continue monitoring patients vitals, leukocytosis and symptoms. (2) Colitis: Code(s): K52.9 - Noninfective gastroenteritis and colitis, unspecified Status: Acute Assessment and Plan: Patient at higher risk of developing C diff colitis with chronic antibiotic use. The patient began having symptoms of nausea, vomiting, abdominal pain, abdominal distension, and diarrhea over the previous few days prior to arrival. CT abdomen pelvis showed diarrhea with wall thickening in the distal colon which demonstrates colitis which could be acute, chronic or acute on chronic. Dr. Linton GI specialist was consulted from the ER and evaluated the patient and believes this could be related to infectious colitis and recommend continuing IV antibiotics at this time and monitoring patient's symptoms. Patient is tolerating diet okay; eating slow on her now soft diet started today. Dr. Bishop infectious Disease consulted and appreciate recommendations. Will continue ID recommended Cefuroxime PO for 7 days (#4/7)and continue IV Vancomycin for right leg infection until patient follows up with [facility]. Will continue monitoring the patient's symptoms. Continue IV antibiotics. Input from GI and Infectious Disease is greatly appreciated (3) Acute hypokalemia: Code(s): E87.6 - Hypokalemia Status: Acute Assessment and Plan: The patient had hypokalemia on admission. This morning her potassium was 4.4. stable. Trend daily Replace as needed (4) Recurrent cellulitis: Code(s): L03.90 - Cellulitis, unspecified Status: Acute Assessment and Plan: The patient has been on chronic antibiotics for recurring right knee cellulitis. February 2019 she was on rifampin and Bactrim and after she was discharged from [facility] 03/07/2019 she was continued on IV vancomycin. 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 One episode of loose stool yesterday morning Continue symptomatic treatment for nausea and vomiting. Stool cultures negative (7) Abdominal pain: Code(s): R10.9 - Unspecified abdominal pain Status: Acute Assessment and Plan: Patient reports abdominal distension but improved. Pain is getting better Continue as needed pain medications for abdominal pain. Subjective Date/time seen: 03/26/19 18:09 Interval history: Patient is a 63 yo F with history of terminal carman antibiotic use, COPD, right femoral fracture, and lymphedema who is here for treatment of colitis and recurrent knee infection. Patient states she continues to improve. Her distension in her abdomen is improvi
[2019-03-26 21:48] VITALS: BP 122/44; PULSE 83; RESP 20; TEMP 36.1; O2SAT 98
[2019-03-26 21:50] VITALS: PULSE 81; O2SAT 98
[2019-03-27 06:00] VITALS: BP 114/46; PULSE 68; RESP 21; TEMP 36.2; O2SAT 100
[2019-03-27 06:22] LABS: Hematocrit 42.9 % (37.0-47.0); Hemoglobin 13.2 g/dL (12.0-15.0); Mean Corpuscular HGB Conc 30.8 g/dl (32-36); Mean Corpuscular Hemoglobin 28.8 pg (26-34); Mean Corpuscular Volume 93.7 fl (80-100); Mean Platelet Volume 10.3 fl (7.4-10.4); Platelet Count Result 398 k/mm3 (150-375); Red Blood Count 4.58 M/mm3 (4.2-5.4); Red Cell Distribution Width 13.5 % (11.5-14.5); White Blood Count 12.3 K/mm3 (4.5-10.0)
[2019-03-27 06:37] LABS: Blood Urea Nitrogen 9 mg/dL (7-17); Calcium 9.3 mg/dL (8.4-10.2); Carbon Dioxide 39 mmol/L (22-30); Chloride 89 mmol/L (98-107); Estimated CRCL calculation 138 ml/min; Estimated Glomerular Filt Rate > 60; Glucose 123 mg/dL (65-105); Magnesium 1.9 mg/dL (1.6-2.3); Potassium 3.8 mmol/L (3.4-5.0); Sodium 137 mmol/L (137-145)
--- NOTE | 2019-03-27 07:22 | PC.NURSE ---
Infectious diseases consulted, sepsis risk screen indicated high risk for sepsis
--- NOTE | 2019-03-27 07:58 | WPDGIPROGNO ---
Progress Note: A&P Additional Plan Patient reports several liquid bowel movements. She notes poor control. She denies any blood in her stools. Abdominal bloating persists. But minimal abdominal pain. On physical exam abdomen is obese. Bowel sounds are present but minimally active. She has tympany to percussion. Labs revealed WBC 12.3. Slowly improving. Impression 1. Colitis. Infectious colitis felt most likely. Still some residual ileus. She is beginning to have bowel function. Plan is to slowly advance diet. She may not yet be able to tolerate solid foods. Leukocytosis is noted to persist. Plan is to continue antibiotics for a full 10 day course. We will slowly advance diet. She cannot increase activity because of her lower extremity poor bone healing. Outpatient elective colonoscopy after a month is advised. Subjective Date/time seen: 03/27/19 07:58 Objective Data Vital Signs Vital Signs: Vital Signs - 24 hr 03/26/19 14:00 03/26/19 15:17 03/26/19 21:48 Temperature 36.7 C 36.1 C L Pulse Rate 93 83 Respiratory Rate 20 20 Blood Pressure 127/55 L 122/44 L Pulse Oximetry 95 96 98 03/26/19 21:50 03/27/19 06:00 Temperature 36.2 C L Pulse Rate 81 68 Respiratory Rate 21 H Blood Pressure 114/46 L Pulse Oximetry 98 100 Intake/Output Intake/Output: Intake & Output 03/24/19 03/25/19 03/26/19 03/27/19 23:59 23:59 23:59 23:59 Intake Total 2600 2620 2170 980 Balance 2600 2620 2170 980 Meds/Results Medications: Active Medications Generic Name Dose Route Start Last Admin Trade Name Freq PRN Reason Stop Dose Admin Acetaminophen 650 mg 03/20/19 22:06 03/25/19 12:46 Tylenol Tablet PO 650 mg Q4H PRN Administration Fever or pain 1-3 Albuterol 2.5 mg 03/20/19 22:08 Albuterol Sulf Neb 2.5mg/0.5ml INHALATION Q4H PRN Dyspnea Albuterol 2 puff 03/21/19 21:29 Proventil Hfa INHALATION QID PRN Dyspnea Cefuroxime Axetil 500 mg 03/23/19 21:00 03/26/19 21:04 Ceftin PO 03/30/19 09:01 500 mg Q12HR SCOTT Administration Cyanocobalamin 1,000 mcg 03/21/19 09:00 03/26/19 08:19 Vitamin B-12 Tab PO 1,000 mcg QAM SCOTT Administration Ferrous Sulfate 324 mg 03/21/19 08:00 03/26/19 08:19 Ferrous Sulfate PO 324 mg DAILY@0800 SCOTT Administration Folic Acid 1 mg 03/21/19 09:00 03/26/19 08:19 Folic Acid PO 1 mg DAILY SCOTT Administration Furosemide 40 mg 03/22/19 17:00 03/26/19 17:05 Lasix Tablet PO 40 mg BID SCOTT Administration Guaifenesin 600 mg 03/21/19 21:29 03/26/19 08:20 Mucinex 12 Hr Tab PO 600 mg BID PRN Administration cough Vancomycin HCl 1,500 mg in 500 mls @ 333.333 mls/hr 03/27/19 00:00 03/27/19 04:06 Vancomycin 1,500 Mg/D5w 500 Ml IVPB Infused Q18H SCOTT Infusion Lactobacillus Acidophilus 1 tablet 03/22/19 09:00 03/26/19 17:06 Lactinex Chewable Tablet PO 04/21/19 09:01 1 tablet BID SCOTT Administration Loratadine 10 mg 03/21/19 09:00 03/26/19 08:19 Claritin PO 10 mg QAM SCOTT Administration Morphine Sulfate 30 mg 03/21/19 09:00 03/26/19 21:05 Ms Contin PO 30 mg Q12H SCOTT Administration Ondansetron HCl 4 mg 03/20/19 22:06 03/26/19 08:22 Zofran Inj IV PUSH 4 mg Q4H PRN Administration Nausea And Vomiting Potassium Chloride 20 meq 03/26/19 09:00 03/26/19 17:05 Kcl Powder (For Liquid) PO 20 meq BID SCOTT Administration Fluticasone/Salmeterol 2 puff 03/21/19 08:00 03/26/19 21:46 Advair Hfa 230-21 Mcg (*Sp) Inhaler INHALATION 2 puff Q12HRT SCOTT Administration Sertraline HCl 50 mg 03/21/19 09:00 03/26/19 08:18 Zoloft PO 50 mg DAILY SCOTT Administration Tiotropium Bellamy 1 cap 03/24/19 21:00 03/25/19 19:26 Spiriva INHALATION 1 cap HS SCOTT Administration Vitamin D 2,000 unit 03/21/19 09:00 03/26/19 08:18 Vitamin D PO 2,000 unit DAILY SCOTT Administration Radiology Results: ITS I
[2019-03-27 08:16] LABS: Band Neutrophils Percent 5 % (0-6); Basophils Absolute Manual 0.12 K/mm3 (0.0-0.1); Basophils Percent Manual 1 % (0-1); Eosinophils Absolute Manual 0.24 K/mm3 (0.02-0.5); Eosinophils Percent Manual 2 % (0-4); Lymphocytes Absolute Manual 3.07 K/mm3 (1.1-4.5); Metamyelocytes Percent 1 %; Monocytes Absolute Manual 1.72 K/mm3 (0.1-0.90); Monocytes Percent Manual 14 % (3-9); Neutrophils Absolute Manual 7.01 K/mm3 (1.7-7.2); Neutrophils Percent Manual 52 % (46-73); Total Cells Counted 100
[2019-03-27 08:19] LABS: Hypochromasia 2+ (NORMAL); Platelet Estimate Increased (Adequate); Stomatocytes 1+ (NORMAL)
[2019-03-27] MEDS: ONDANSETRON INJ 4 MG/2 ML VIAL IV PUSH (08:51)
[2019-03-27] MEDS: ACIDOPHILUS/BULGARICUS CHEWABLE TABLET 1 TABLET PO ×2 (08:54→17:16)
[2019-03-27] MEDS: LORATADINE 10 MG TABLET PO (08:54)
[2019-03-27] MEDS: FUROSEMIDE 40 MG TABLET PO ×2 (08:54→17:16)
[2019-03-27] MEDS: FOLIC ACID 1 MG TABLET PO (08:54)
[2019-03-27] MEDS: POTASSIUM CHLORIDE 20 MEQ PACKET (FOR LIQUID) PO ×2 (08:54→17:16)
[2019-03-27] MEDS: CHOLECALCIFEROL 1,000 UNIT TABLET 2000 UNITS PO (08:54)
[2019-03-27] MEDS: CEFUROXIME AXETIL 250 MG TABLET 500 MG PO ×2 (08:54→21:38)
[2019-03-27] MEDS: FERROUS SULFATE 324 MG TABLET PO (08:54)
[2019-03-27] MEDS: CYANOCOBALAMIN 1,000 MCG TABLET 1000 MCG PO (08:54)
[2019-03-27] MEDS: MORPHINE SULFATE 30 MG TABCR PO ×2 (08:54→21:38)
[2019-03-27] MEDS: SERTRALINE HCL 50 MG TABLET PO (08:54)
[2019-03-27 10:15] VITALS: O2SAT 98
--- NOTE | 2019-03-27 12:35 | PM.IMPN ---
Progress Note: A&P Assessment and Plan (1) Colitis: Code(s): K52.9 - Noninfective gastroenteritis and colitis, unspecified Status: Acute Assessment and Plan: Patient at higher risk of developing C diff colitis with chronic antibiotic use. The patient began having symptoms of nausea, vomiting, abdominal pain, abdominal distension, and diarrhea over the previous few days prior to arrival. CT abdomen pelvis showed diarrhea with wall thickening in the distal colon which demonstrates colitis which could be acute, chronic or acute on chronic. Dr. Linton GI specialist was consulted from the ER and evaluated the patient and believed this could be related to infectious colitis and recommend continuing IV antibiotics at this time and monitoring patient's symptoms. Patient is tolerating diet but notes vomiting last night; she is on a self-placed soft diet. Dr. Bishop infectious Disease consulted and appreciate recommendations. Will continue ID recommended Cefuroxime PO for 7 days (through 03/30) and continue IV Vancomycin for right leg infection until patient follows up with [facility]. Will continue monitoring the patient's symptoms. Continue IV antibiotics. Input from GI and Infectious Disease is greatly appreciated (2) Severe sepsis: Code(s): A41.9 - Sepsis, unspecified organism; R65.20 - Severe sepsis without septic shock Status: Resolved Assessment and Plan: The patient met criteria for severe sepsis on arrival with leukocytosis at 26,200, with a left shift and lactic acidosis, tachycardic heart rate, with a source of infection being infectious colitis vs recurrent right knee infection. WBC 12.3K today Blood cultures negative to date and stool cultures are negative Continue antibiotics per ID recommendations Continue monitoring patients vitals, leukocytosis and symptoms. (3) Acute hypokalemia: Code(s): E87.6 - Hypokalemia Status: Acute Assessment and Plan: The patient had hypokalemia on admission. This morning her potassium was 3.8 Trend daily Replace as needed (4) Infection of right knee: Code(s): M00.9 - Pyogenic arthritis, unspecified Status: Acute Assessment and Plan: The patient has been on chronic antibiotics for recurring right knee infection which is managed by [facility] with IV vancomycin. She tells me she does not know of an anticipated stop date as of yet. February 2019 she was on rifampin and Bactrim and after she was discharged from [facility] 03/07/2019 she was continued on IV vancomycin. continue Antibiotics (IV vanc and PO cefuroxime) per ID recommendations which are greatly appreciated (5) Antibiotic long-term use: Code(s): Z79.2 - intermediate card tender (current) use of antibiotics Status: Inactive Assessment and Plan: See above under recurrent knee infection (6) Nausea vomiting and diarrhea: Code(s): R11.2 - Nausea with vomiting, unspecified; R19.7 - Diarrhea, unspecified Status: Acute Assessment and Plan: She not having nausea/vomiting today. One episode of vomiting yesterday Continue symptomatic treatment for nausea and vomiting. Stool cultures negative (7) Abdominal pain: Code(s): R10.9 - Unspecified abdominal pain Status: Acute Assessment and Plan: Patient reports abdominal distension but improved. Pain is getting better Continue as needed pain medications for abdominal pain. Subjective Date/time seen: 03/27/19 12:35 Interval history: Patient is a 63 yo F with history of jail antibiotic use, COPD, right femoral fracture, and lymphedema who is here for yanet
[2019-03-27 14:00] VITALS: BP 111/70; PULSE 86; RESP 18; TEMP 37.8; O2SAT 96
[2019-03-27 20:20] VITALS: O2SAT 97
[2019-03-27] MEDS: ACETAMINOPHEN 325 MG TABLET 650 MG PO (21:37)
[2019-03-27 22:00] VITALS: BP 110/40; PULSE 85; RESP 16; TEMP 35.9; O2SAT 98
[2019-03-28 06:00] VITALS: BP 131/61; PULSE 99; RESP 20; TEMP 36.3; O2SAT 99
[2019-03-28 06:07] LABS: Basophils Absolute Auto 0.1 K/mm3 (0.0-0.1); Basophils Percent Auto 0.8 % (0.2-1.2); Eosinophils Absolute Auto 0.5 K/mm3 (0-0.3); Eosinophils Percent Auto 3.9 % (0-4.4); Hemoglobin 11.9 g/dL (12.0-15.0); Immature Granulocyte Absolute 0.83 K/mm3 (0.00-0.031); Immature Granulocyte Percent A 6.9 % (0-0.5); Lymphocytes Absolute Auto 3.29 K/mm3 (0.9-3.2); Lymphocytes Percent Auto 27.4 % (18.3-44.2); Mean Corpuscular HGB Conc 30.5 g/dl (32-36); Mean Corpuscular Hemoglobin 28.7 pg (26-34); Mean Corpuscular Volume 94.2 fl (80-100); Mean Platelet Volume 9.8 fl (7.4-10.4); Monocytes Absolute Auto 1.4 K/mm3 (0.1-0.6); Monocytes Percent Auto 11.6 % (2.6-8.5); Neutrophils Absolute Auto 5.9 K/mm3 (1.3-6.7); Neutrophils Percent Auto 49.4 % (45.5-73.1); Platelet Count Result 420 k/mm3 (150-375); Red Blood Count 4.14 M/mm3 (4.2-5.4); Red Cell Distribution Width 13.3 % (11.5-14.5)
[2019-03-28 06:11] LABS: Blood Urea Nitrogen 12 mg/dL (7-17); Calcium 8.9 mg/dL (8.4-10.2); Carbon Dioxide > 40 mmol/L (22-30); Chloride 93 mmol/L (98-107); Estimated CRCL calculation 138 ml/min; Estimated Glomerular Filt Rate > 60; Glucose 111 mg/dL (65-105); Magnesium 1.9 mg/dL (1.6-2.3); Potassium 3.8 mmol/L (3.4-5.0); Sodium 137 mmol/L (137-145)
[2019-03-28 08:15] VITALS: O2SAT 98
[2019-03-28] MEDS: ONDANSETRON INJ 4 MG/2 ML VIAL IV PUSH (08:44)
[2019-03-28] MEDS: MORPHINE SULFATE 30 MG TABCR PO ×2 (10:09→20:47)
[2019-03-28] MEDS: ACIDOPHILUS/BULGARICUS CHEWABLE TABLET 1 TABLET PO ×2 (10:09→17:58)
[2019-03-28] MEDS: FERROUS SULFATE 324 MG TABLET PO (10:09)
[2019-03-28] MEDS: CEFUROXIME AXETIL 250 MG TABLET 500 MG PO ×2 (10:09→20:47)
[2019-03-28] MEDS: CHOLECALCIFEROL 1,000 UNIT TABLET 2000 UNITS PO (10:09)
[2019-03-28] MEDS: FUROSEMIDE 40 MG TABLET PO ×2 (10:09→17:58)
[2019-03-28] MEDS: LORATADINE 10 MG TABLET PO (10:10)
[2019-03-28] MEDS: CYANOCOBALAMIN 1,000 MCG TABLET 1000 MCG PO (10:10)
[2019-03-28] MEDS: POTASSIUM CHLORIDE 20 MEQ PACKET (FOR LIQUID) PO ×2 (10:10→17:58)
[2019-03-28] MEDS: SERTRALINE HCL 50 MG TABLET PO (10:10)
[2019-03-28] MEDS: FOLIC ACID 1 MG TABLET PO (10:10)
--- NOTE | 2019-03-28 10:10 | PC.NURSE ---
Patient requested 0900 medications be given now due to nausea this AM prior to administration of zofran via PICC line.
--- NOTE | 2019-03-28 11:48 | WPDGIPROGNO ---
Progress Note: A&P Assessment and Plan (1) Colitis: Code(s): K52.9 - Noninfective gastroenteritis and colitis, unspecified Status: Acute Assessment and Plan: left sided colitis, stool samples negative including C diff (had C diff 7 months ago but different symptoms this time), her last colonoscopy about 8-9 years ago[address] Colonoscopy by Dr Linton as outpatient (2) Infection of right knee: Code(s): M00.9 - Pyogenic arthritis, unspecified Status: Acute Assessment and Plan: IV vancomycin (MRSA infection) by ID (3) Abdominal pain: Code(s): R10.9 - Unspecified abdominal pain Status: Acute (4) Nausea vomiting and diarrhea: Code(s): R11.2 - Nausea with vomiting, unspecified; R19.7 - Diarrhea, unspecified Status: Acute Assessment and Plan: less nausea and tolerating more diet, continue to monitor. Normal renal function, no acidosis Subjective Date/time seen: 03/28/19 11:48 Interval history: still with diarrhea and bloating, less nausea and she is trying to eat more. Review of Systems Review of Systems: All systems reviewed & are unremarkable except as noted in HPI and below Exam Const: General: comfortable and no acute distress HENMT: General nose exam: Normal nares present Eyes: General: appearance normal, both eyes and all related structures Neck: Neck: no JVD Resp: Auscultation: clear to auscultation bilaterally Cardio: Rate: regular rate Rhythm: regular rhythm GI: Inspection: distended GI Palp: Yes Soft to palpation, No Firmness to palpation present (GI) and Yes Tenderness to palpation present (GI) (mild ttp diffusely, no rebound) Percussion: No Fluid wave present Auscultation: Hypoactive bowel sounds present Skin: General skin exam: normal color Neuro: General: gait normal Speech: normal speech Extrem: General: normal to inspection Psych: Mental Status: mental status grossly normal Objective Data Vital Signs Vital Signs: Vital Signs - 24 hr 03/27/19 14:00 03/27/19 20:20 03/27/19 22:00 Temperature 100.0 F H 96.7 F L Pulse Rate 86 85 Respiratory Rate 18 16 Blood Pressure 111/70 110/40 L Pulse Oximetry 96 97 98 03/28/19 06:00 03/28/19 08:15 Temperature 97.3 F L Pulse Rate 99 Respiratory Rate 20 Blood Pressure 131/61 Pulse Oximetry 99 98 Intake/Output Intake/Output: Intake & Output 03/25/19 03/26/19 03/27/19 03/28/19 23:59 23:59 23:59 23:59 Intake Total 2620 2170 2280 800 Balance 2620 2170 2280 800 Meds/Results Medications: Active Medications Generic Name Dose Route Start Last Admin Trade Name Freq PRN Reason Stop Dose Admin Acetaminophen 650 mg 03/20/19 22:06 03/27/19 21:37 Tylenol Tablet PO 650 mg Q4H PRN Administration Fever or pain 1-3 Albuterol 2.5 mg 03/20/19 22:08 Albuterol Sulf Neb 2.5mg/0.5ml INHALATION Q4H PRN Dyspnea Albuterol 2 puff 03/21/19 21:29 Proventil Hfa INHALATION QID PRN Dyspnea Cefuroxime Axetil 500 mg 03/23/19 21:00 03/28/19 10:09 Ceftin PO 03/30/19 09:01 500 mg Q12HR SCOTT Administration Cyanocobalamin 1,000 mcg 03/21/19 09:00 03/28/19 10:10 Vitamin B-12 Tab PO 1,000 mcg QAM SCOTT Administration Ferrous Sulfate 324 mg 03/21/19 08:00 03/28/19 10:09 Ferrous Sulfate PO 324 mg DAILY@0800 SCOTT Administration Folic Acid 1 mg 03/21/19 09:00 03/28/19 10:10 Folic Acid PO 1 mg DAILY SCOTT Administration Furosemide 40 mg 03/22/19 17:00 03/28/19 10:09 Lasix Tablet PO 40 mg BID SCOTT Administration Guaifenesin 600 mg 03/21/19 21:29 03/27/19 08:53 Mucinex 12 Hr Tab PO 600 mg BID PRN Administration cough Vancomycin HCl 1,500 mg in 500 mls @ 333.333 mls/hr 03/27/19 00:00 03/27/19 18:58 Vancomycin 1,500 Mg/D5w 500 Ml IVPB Infused Q18H SCOTT Infusion Lactobacillus Acidophilus 1 tablet 03/22/19 09:00 03/28/19 10:09 Lactinex Chewable Tablet PO 04/21/19
[2019-03-28 12:01] LABS: Vancomycin Trough 9.8 ug/mL (10.0-20.0)
--- NOTE | 2019-03-28 13:55 | PM.IMPN ---
Progress Note: A&P Assessment and Plan (1) Colitis: Code(s): K52.9 - Noninfective gastroenteritis and colitis, unspecified Status: Acute Assessment and Plan: Patient at higher risk of developing C diff colitis with chronic antibiotic use. The patient began having symptoms of nausea, vomiting, abdominal pain, abdominal distension, and diarrhea over the previous few days prior to arrival. CT abdomen pelvis showed diarrhea with wall thickening in the distal colon which demonstrates colitis which could be acute, chronic or acute on chronic. Dr. Linton GI specialist was consulted from the ER and evaluated the patient and believed this could be related to infectious colitis and recommend continuing IV antibiotics at this time and monitoring patient's symptoms. Patient is tolerating diet; she is on a self-placed soft diet. She had BM today. Abdomen slightly more distended today Dr. Bishop infectious Disease consulted and appreciate recommendations. Will continue ID recommended Cefuroxime PO for 7 days (through 03/30) and continue IV Vancomycin for right leg infection until patient follows up with [facility]. Will continue monitoring the patient's symptoms. Continue IV antibiotics. Input from GI and Infectious Disease is greatly appreciated Encouraged PO intake (2) Severe sepsis: Code(s): A41.9 - Sepsis, unspecified organism; R65.20 - Severe sepsis without septic shock Status: Resolved Assessment and Plan: The patient met criteria for severe sepsis on arrival with leukocytosis at 26,200, with a left shift and lactic acidosis, tachycardic heart rate, with a source of infection being infectious colitis vs recurrent right knee infection. WBC 12.0K today Blood cultures negative to date and stool cultures are negative Continue antibiotics per ID recommendations Continue monitoring patients vitals, leukocytosis and symptoms. (3) Acute hypokalemia: Code(s): E87.6 - Hypokalemia Status: Acute Assessment and Plan: The patient had hypokalemia on admission. This morning her potassium was 3.8 Trend daily Replace as needed (4) Infection of right knee: Code(s): M00.9 - Pyogenic arthritis, unspecified Status: Acute Assessment and Plan: The patient has been on chronic antibiotics for recurring right knee infection which is managed by [facility] with IV vancomycin. She tells me she does not know of an anticipated stop date as of yet. February 2019 she was on rifampin and Bactrim and after she was discharged from [facility] 03/07/2019 she was continued on IV vancomycin. continue Antibiotics (IV vanc and PO cefuroxime) per ID recommendations which are greatly appreciated She will continue IV vanc at discharge until she follow up with [facility] (5) Antibiotic long-term use: Code(s): Z79.2 - senior living (current) use of antibiotics Status: Inactive Assessment and Plan: See above under recurrent knee infection (6) Nausea vomiting and diarrhea: Code(s): R11.2 - Nausea with vomiting, unspecified; R19.7 - Diarrhea, unspecified Status: Acute Assessment and Plan: She not having nausea/vomiting today Continue symptomatic treatment for nausea and vomiting. Stool cultures negative (7) Abdominal pain: Code(s): R10.9 - Unspecified abdominal pain Status: Acute Assessment and Plan: Patient reports abdominal distension but improved. Pain is getting better Continue as needed pain medications for abdominal pain. Subjective Date/time seen: 03/28/19 13:55 Interval history: Patient is a 63 yo F with history of deanne
[2019-03-28 14:00] VITALS: BP 116/78; PULSE 75; RESP 16; TEMP 36.3; O2SAT 99
[2019-03-28] MEDS: ACETAMINOPHEN 325 MG TABLET 650 MG PO (20:48)
[2019-03-28 22:00] VITALS: BP 126/69; PULSE 110; RESP 20; TEMP 36; O2SAT 96
[2019-03-28 22:08] VITALS: PULSE 83; O2SAT 96
[2019-03-29 05:49] LABS: Basophils Absolute Auto 0.1 K/mm3 (0.0-0.1); Basophils Percent Auto 0.7 % (0.2-1.2); Eosinophils Absolute Auto 0.5 K/mm3 (0-0.3); Eosinophils Percent Auto 3.7 % (0-4.4); Hematocrit 38.8 % (37.0-47.0); Hemoglobin 11.9 g/dL (12.0-15.0); Immature Granulocyte Absolute 0.53 K/mm3 (0.00-0.031); Immature Granulocyte Percent A 4.4 % (0-0.5); Lymphocytes Absolute Auto 3.38 K/mm3 (0.9-3.2); Lymphocytes Percent Auto 27.8 % (18.3-44.2); Mean Corpuscular HGB Conc 30.7 g/dl (32-36); Mean Corpuscular Hemoglobin 28.7 pg (26-34); Mean Corpuscular Volume 93.5 fl (80-100); Mean Platelet Volume 9.6 fl (7.4-10.4); Monocytes Absolute Auto 1.1 K/mm3 (0.1-0.6); Monocytes Percent Auto 9.3 % (2.6-8.5); Neutrophils Absolute Auto 6.6 K/mm3 (1.3-6.7); Neutrophils Percent Auto 54.1 % (45.5-73.1); Platelet Count Result 443 k/mm3 (150-375); Red Blood Count 4.15 M/mm3 (4.2-5.4); Red Cell Distribution Width 13.3 % (11.5-14.5); White Blood Count 12.2 K/mm3 (4.5-10.0)
[2019-03-29 06:09] VITALS: BP 136/49; PULSE 72; RESP 18; TEMP 36.1; O2SAT 97
[2019-03-29 06:24] LABS: Blood Urea Nitrogen 13 mg/dL (7-17); Calcium 9.1 mg/dL (8.4-10.2); Carbon Dioxide > 40 mmol/L (22-30); Chloride 92 mmol/L (98-107); Estimated CRCL calculation 138 ml/min; Estimated Glomerular Filt Rate > 60; Glucose 118 mg/dL (65-105); Magnesium 1.9 mg/dL (1.6-2.3); Potassium 3.7 mmol/L (3.4-5.0); Sodium 138 mmol/L (137-145)
[2019-03-29] MEDS: POTASSIUM CHLORIDE 20 MEQ TABLET 40 MEQ PO (07:30)
[2019-03-29] MEDS: ONDANSETRON INJ 4 MG/2 ML VIAL IV PUSH (07:34)
[2019-03-29] MEDS: LORATADINE 10 MG TABLET PO (08:04)
[2019-03-29] MEDS: FERROUS SULFATE 324 MG TABLET PO (08:04)
[2019-03-29] MEDS: ACIDOPHILUS/BULGARICUS CHEWABLE TABLET 1 TABLET PO ×2 (08:04→17:15)
[2019-03-29] MEDS: MORPHINE SULFATE 30 MG TABCR PO ×2 (08:04→20:52)
[2019-03-29] MEDS: SERTRALINE HCL 50 MG TABLET PO (08:04)
[2019-03-29] MEDS: FUROSEMIDE 40 MG TABLET PO ×2 (08:04→17:15)
[2019-03-29] MEDS: CHOLECALCIFEROL 1,000 UNIT TABLET 2000 UNITS PO (08:04)
[2019-03-29] MEDS: FOLIC ACID 1 MG TABLET PO (08:04)
[2019-03-29] MEDS: CYANOCOBALAMIN 1,000 MCG TABLET 1000 MCG PO (08:04)
[2019-03-29] MEDS: CEFUROXIME AXETIL 250 MG TABLET 500 MG PO ×2 (08:04→20:52)
[2019-03-29 10:28] VITALS: O2SAT 98
--- NOTE | 2019-03-29 11:00 | WPDGIPROGNO ---
Progress Note: A&P Assessment and Plan (1) Colitis: Code(s): K52.9 - Noninfective gastroenteritis and colitis, unspecified Status: Acute Assessment and Plan: left sided colitis, stool samples negative including C diff, her last colonoscopy about 8-9 years ago. Colonoscopy by Dr Linton as outpatient, he will resume her care tomorrow. (2) Infection of right knee: Code(s): M00.9 - Pyogenic arthritis, unspecified Status: Acute Assessment and Plan: IV vancomycin (MRSA infection) by ID (3) Abdominal pain: Qualifiers: Abdominal location: lower abdomen, unspecified Qualified Code(s): R10.30 - Lower abdominal pain, unspecified Code(s): R10.9 - Unspecified abdominal pain Status: Acute (4) Nausea vomiting and diarrhea: Code(s): R11.2 - Nausea with vomiting, unspecified; R19.7 - Diarrhea, unspecified Status: Acute Assessment and Plan: less nausea and tolerating more diet, continue to monitor. Normal renal function, no acidosis Subjective Date/time seen: 03/29/19 11:00 Interval history: no new events, still bloated and had loose stools, no changes. Review of Systems Review of Systems: All systems reviewed & are unremarkable except as noted in HPI and below Exam Const: General: comfortable and no acute distress HENMT: General nose exam: Normal nares present Eyes: General: appearance normal, both eyes and all related structures Neck: Neck: no JVD Resp: Auscultation: clear to auscultation bilaterally Cardio: Rate: regular rate Rhythm: regular rhythm GI: Inspection: distended GI Palp: Yes Soft to palpation, No Firmness to palpation present (GI) and Yes Tenderness to palpation present (GI) (mild ttp diffusely, no rebound) Percussion: No Fluid wave present Auscultation: Hypoactive bowel sounds present Skin: General skin exam: normal color Neuro: General: gait normal Speech: normal speech Extrem: General: normal to inspection Right lower extremity: knee Psych: Mental Status: mental status grossly normal Objective Data Vital Signs Vital Signs: Vital Signs - 24 hr 03/28/19 14:00 03/28/19 22:00 03/28/19 22:08 Temperature 97.4 F L 96.8 F L Pulse Rate 75 110 H 83 Respiratory Rate 16 20 Blood Pressure 116/78 126/69 Pulse Oximetry 99 96 96 03/29/19 06:09 03/29/19 10:28 Temperature 96.9 F L Pulse Rate 72 Respiratory Rate 18 Blood Pressure 136/49 L Pulse Oximetry 97 98 Intake/Output Intake/Output: Intake & Output 03/26/19 03/27/19 03/28/19 03/29/19 23:59 23:59 23:59 23:59 Intake Total 2170 2280 2240 1140 Balance 2170 2280 2240 1140 Meds/Results Medications: Active Medications Generic Name Dose Route Start Last Admin Trade Name Freq PRN Reason Stop Dose Admin Acetaminophen 650 mg 03/20/19 22:06 03/28/19 20:48 Tylenol Tablet PO 650 mg Q4H PRN Administration Fever or pain 1-3 Albuterol 2.5 mg 03/20/19 22:08 Albuterol Sulf Neb 2.5mg/0.5ml INHALATION Q4H PRN Dyspnea Albuterol 2 puff 03/21/19 21:29 Proventil Hfa INHALATION QID PRN Dyspnea Cefuroxime Axetil 500 mg 03/23/19 21:00 03/29/19 08:04 Ceftin PO 03/30/19 09:01 500 mg Q12HR SCOTT Administration Cyanocobalamin 1,000 mcg 03/21/19 09:00 03/29/19 08:04 Vitamin B-12 Tab PO 1,000 mcg QAM SCOTT Administration Ferrous Sulfate 324 mg 03/21/19 08:00 03/29/19 08:04 Ferrous Sulfate PO 324 mg DAILY@0800 SCOTT Administration Folic Acid 1 mg 03/21/19 09:00 03/29/19 08:04 Folic Acid PO 1 mg DAILY SCOTT Administration Furosemide 40 mg 03/22/19 17:00 03/29/19 08:04 Lasix Tablet PO 40 mg BID SCOTT Administration Guaifenesin 600 mg 03/21/19 21:29 03/27/19 08:53 Mucinex 12 Hr Tab PO 600 mg BID PRN Administration cough Vancomycin HCl 1,500 mg in 500 mls @ 333.333 mls/hr 03/27/19 00:00 03/29/19 06:50 Vancomycin 1,500 Mg/D5w 500 Ml IVPB Infuse
[2019-03-29 14:00] VITALS: BP 130/97; PULSE 74; RESP 16; TEMP 36.1; O2SAT 99
--- NOTE | 2019-03-29 14:14 | PM.IMPN ---
Progress Note: A&P Assessment and Plan (1) Colitis: Code(s): K52.9 - Noninfective gastroenteritis and colitis, unspecified Status: Acute Assessment and Plan: Patient at higher risk of developing C diff colitis with chronic antibiotic use. The patient began having symptoms of nausea, vomiting, abdominal pain, abdominal distension, and diarrhea over the previous few days prior to arrival. CT abdomen pelvis showed diarrhea with wall thickening in the distal colon which demonstrates colitis which could be acute, chronic or acute on chronic. Dr. Linton GI specialist was consulted from the ER and evaluated the patient and believed this could be related to infectious colitis and recommend continuing IV antibiotics at this time and monitoring patient's symptoms. Patient is tolerating diet; she is on a self-placed soft diet and only eating part of her meals. She had a large BM last night. Abdomen still distended Dr. Bishop (ID) consulted and appreciate recommendations. Will continue ID recommended Cefuroxime PO for 7 days (through 03/30) and continue IV Vancomycin for right leg infection until patient follows up with [facility]. Will continue monitoring the patient's symptoms. Continue IV antibiotics. Input from GI and Infectious Disease is greatly appreciated Encouraged PO intake (2) Severe sepsis: Code(s): A41.9 - Sepsis, unspecified organism; R65.20 - Severe sepsis without septic shock Status: Resolved Assessment and Plan: The patient met criteria for severe sepsis on arrival with leukocytosis at 26.2k, with a left shift and lactic acidosis, tachycardic heart rate, with a source of infection being infectious colitis vs recurrent right knee infection. WBC 12.2K today; stable Blood cultures negative after 5 days and stool cultures are negative Continue antibiotics per ID recommendations Continue monitoring patients vitals, leukocytosis and symptoms. (3) Acute hypokalemia: Code(s): E87.6 - Hypokalemia Status: Acute Assessment and Plan: The patient had hypokalemia on admission. This morning her potassium was 3.7 Trend daily Replace as needed (4) Infection of right knee: Code(s): M00.9 - Pyogenic arthritis, unspecified Status: Acute Assessment and Plan: The patient has been on chronic antibiotics for recurring right knee infection which is managed by [facility] with IV vancomycin. She tells me she does not know of an anticipated stop date as of yet. February 2019 she was on rifampin and Bactrim and after she was discharged from [facility] 03/07/2019 she was continued on IV vancomycin. Continue Antibiotics (IV vanc and PO cefuroxime) per ID recommendations which are greatly appreciated She will continue IV vanc at discharge until she follow up with [facility] (5) Antibiotic long-term use: Code(s): Z79.2 - jail (current) use of antibiotics Status: Inactive Assessment and Plan: See above under recurrent knee infection (6) Nausea vomiting and diarrhea: Code(s): R11.2 - Nausea with vomiting, unspecified; R19.7 - Diarrhea, unspecified Status: Acute Assessment and Plan: She had some nausea today, no vomiting. Large BM yesterday evening Continue symptomatic treatment for nausea and vomiting. Stool cultures negative (7) Abdominal pain: Qualifiers: Abdominal location: lower abdomen, unspecified Qualified Code(s): R10.30 - Lower abdominal pain, unspecified Code(s): R10.9 - Unspecified abdominal pain Status: Acute Assessment and Plan: Patient reports abdominal distension still. Pain is about the same Continue as neede
[2019-03-29] MEDS: POTASSIUM CHLORIDE 20 MEQ PACKET (FOR LIQUID) PO (17:15)
[2019-03-29] MEDS: ACETAMINOPHEN 325 MG TABLET 650 MG PO (17:18)
[2019-03-29 20:35] VITALS: O2SAT 96
[2019-03-29 22:00] VITALS: BP 129/42; PULSE 76; RESP 22; TEMP 36.6; O2SAT 97
[2019-03-30 05:38] LABS: Basophils Absolute Auto 0.1 K/mm3 (0.0-0.1); Basophils Percent Auto 0.5 % (0.2-1.2); Eosinophils Absolute Auto 0.4 K/mm3 (0-0.3); Eosinophils Percent Auto 3.3 % (0-4.4); Hematocrit 39.2 % (37.0-47.0); Hemoglobin 12.4 g/dL (12.0-15.0); Immature Granulocyte Absolute 0.22 K/mm3 (0.00-0.031); Immature Granulocyte Percent A 1.8 % (0-0.5); Lymphocytes Absolute Auto 2.93 K/mm3 (0.9-3.2); Lymphocytes Percent Auto 24.1 % (18.3-44.2); Mean Corpuscular HGB Conc 31.6 g/dl (32-36); Mean Corpuscular Volume 91.8 fl (80-100); Mean Platelet Volume 9.6 fl (7.4-10.4); Monocytes Absolute Auto 0.9 K/mm3 (0.1-0.6); Monocytes Percent Auto 7.3 % (2.6-8.5); Neutrophils Absolute Auto 7.7 K/mm3 (1.3-6.7); Platelet Count Result 435 k/mm3 (150-375); Red Blood Count 4.27 M/mm3 (4.2-5.4); Red Cell Distribution Width 13.4 % (11.5-14.5); White Blood Count 12.2 K/mm3 (4.5-10.0)
[2019-03-30 05:38] LABS: Blood Urea Nitrogen 13 mg/dL (7-17); Calcium 9.1 mg/dL (8.4-10.2); Carbon Dioxide 38 mmol/L (22-30); Chloride 91 mmol/L (98-107); Estimated CRCL calculation 176 ml/min; Estimated Glomerular Filt Rate > 60; Glucose 105 mg/dL (65-105); Magnesium 1.9 mg/dL (1.6-2.3); Sodium 137 mmol/L (137-145)
[2019-03-30 05:49] VITALS: BP 132/53; PULSE 75; RESP 20; TEMP 36.6; O2SAT 99
--- NOTE | 2019-03-30 07:24 | WPDGIPROGNO ---
Progress Note: A&P Additional Plan Patient continues to have diarrhea stools. Poor control noted. Incontinent of large stool this morning. No blood loss noted. Patient notes her abdomen is distended. Physical exam reveals her to be alert. Remains at bedrest. Abdomen is obese. Somewhat distended in tympanic. Bowel sounds are present. Labs reveal WBC 12.2. Hemoglobin 12.4. Impression 1. Left-sided colitis. Symptoms appear to be ongoing. Tympany suggest she may have some ileus. 2. Poorly healing knee infection. Plan is to continue broad-spectrum antibiotics. Plan to proceed with colonoscopy over the next several days if at all possible. Subjective Date/time seen: 03/30/19 07:24 Objective Data Vital Signs Vital Signs: Vital Signs - 24 hr 03/29/19 10:28 03/29/19 14:00 03/29/19 20:35 Temperature 36.1 C L Pulse Rate 74 Respiratory Rate 16 Blood Pressure 130/97 H Pulse Oximetry 98 99 96 03/29/19 22:00 03/30/19 05:49 Temperature 36.6 C 36.6 C Pulse Rate 76 75 Respiratory Rate 22 H 20 Blood Pressure 129/42 L 132/53 L Pulse Oximetry 97 99 Intake/Output Intake/Output: Intake & Output 03/27/19 03/28/19 03/29/19 03/30/19 23:59 23:59 23:59 23:59 Intake Total 2280 2240 2220 800 Balance 2280 2240 2220 800 Meds/Results Medications: Active Medications Generic Name Dose Route Start Last Admin Trade Name Freq PRN Reason Stop Dose Admin Acetaminophen 650 mg 03/20/19 22:06 03/29/19 17:18 Tylenol Tablet PO 650 mg Q4H PRN Administration Fever or pain 1-3 Albuterol 2.5 mg 03/20/19 22:08 Albuterol Sulf Neb 2.5mg/0.5ml INHALATION Q4H PRN Dyspnea Albuterol 2 puff 03/21/19 21:29 Proventil Hfa INHALATION QID PRN Dyspnea Cefuroxime Axetil 500 mg 03/23/19 21:00 03/29/19 20:52 Ceftin PO 03/30/19 09:01 500 mg Q12HR SCOTT Administration Cyanocobalamin 1,000 mcg 03/21/19 09:00 03/29/19 08:04 Vitamin B-12 Tab PO 1,000 mcg QAM SCOTT Administration Ferrous Sulfate 324 mg 03/21/19 08:00 03/29/19 08:04 Ferrous Sulfate PO 324 mg DAILY@0800 SCOTT Administration Folic Acid 1 mg 03/21/19 09:00 03/29/19 08:04 Folic Acid PO 1 mg DAILY SCOTT Administration Furosemide 40 mg 03/22/19 17:00 03/29/19 17:15 Lasix Tablet PO 40 mg BID SCOTT Administration Guaifenesin 600 mg 03/21/19 21:29 03/27/19 08:53 Mucinex 12 Hr Tab PO 600 mg BID PRN Administration cough Vancomycin HCl 1,500 mg in 500 mls @ 333.333 mls/hr 03/27/19 00:00 03/30/19 02:22 Vancomycin 1,500 Mg/D5w 500 Ml IVPB Infused Q18H SCOTT Infusion Lactobacillus Acidophilus 1 tablet 03/22/19 09:00 03/29/19 17:15 Lactinex Chewable Tablet PO 04/21/19 09:01 1 tablet BID SCOTT Administration Loratadine 10 mg 03/21/19 09:00 03/29/19 08:04 Claritin PO 10 mg QAM SCOTT Administration Morphine Sulfate 30 mg 03/21/19 09:00 03/29/19 20:52 Ms Contin PO 30 mg Q12H SCOTT Administration Ondansetron HCl 4 mg 03/20/19 22:06 03/29/19 07:34 Zofran Inj IV PUSH 4 mg Q4H PRN Administration Nausea And Vomiting Potassium Chloride 20 meq 03/26/19 09:00 03/29/19 17:15 Kcl Powder (For Liquid) PO 20 meq BID SCOTT Administration Fluticasone/Salmeterol 2 puff 03/21/19 08:00 03/29/19 20:31 Advair Hfa 230-21 Mcg (*Sp) Inhaler INHALATION 2 puff Q12HRT SCOTT Administration Sertraline HCl 50 mg 03/21/19 09:00 03/29/19 08:04 Zoloft PO 50 mg DAILY SCOTT Administration Tiotropium [place] 1 cap 03/24/19 21:00 03/29/19 20:31 Spiriva INHALATION 1 cap HS SCOTT Administration Vitamin D 2,000 unit 03/21/19 09:00 03/29/19 08:04 Vitamin D PO 2,000 unit DAILY SCOTT Administration Radiology Results: ITS Impressions Venous Doppler Study 03/21/19 16:44 IMPRESSION: 1. No deep venous thrombosis in either lower limb. Knee X-Ray 03/21/19 16:46 IMPRESSION: 1. Small amount
[2019-03-30] MEDS: ACIDOPHILUS/BULGARICUS CHEWABLE TABLET 1 TABLET PO ×2 (09:15→16:43)
[2019-03-30] MEDS: MORPHINE SULFATE 30 MG TABCR PO ×2 (09:15→20:44)
[2019-03-30] MEDS: CEFUROXIME AXETIL 250 MG TABLET 500 MG PO (09:15)
[2019-03-30] MEDS: CYANOCOBALAMIN 1,000 MCG TABLET 1000 MCG PO (09:16)
[2019-03-30] MEDS: POTASSIUM CHLORIDE 20 MEQ PACKET (FOR LIQUID) PO ×2 (09:16→16:43)
[2019-03-30] MEDS: SERTRALINE HCL 50 MG TABLET PO (09:16)
[2019-03-30] MEDS: LORATADINE 10 MG TABLET PO (09:16)
[2019-03-30] MEDS: FOLIC ACID 1 MG TABLET PO (09:16)
[2019-03-30] MEDS: FUROSEMIDE 40 MG TABLET PO ×2 (09:16→16:43)
[2019-03-30] MEDS: FERROUS SULFATE 324 MG TABLET PO (09:17)
[2019-03-30] MEDS: CHOLECALCIFEROL 1,000 UNIT TABLET 2000 UNITS PO (09:17)
[2019-03-30 11:00] VITALS: O2SAT 98
[2019-03-30] MEDS: PEG (High)/E-LYTE SOLN 4,000 ML BTL 4000 ML PO (11:29)
--- NOTE | 2019-03-30 13:34 | PCNWS ---
Weekly nutritional screen. Patient is tolerating current diet with adequate intake. No weight loss reported. No nutritional needs at this time.
[2019-03-30 14:00] VITALS: BP 140/96; PULSE 59; RESP 14; TEMP 35.9; O2SAT 95
[2019-03-30] MEDS: EUCERIN CREAM 120 GM JAR 1 APPLIC TOPICAL (15:01)
--- NOTE | 2019-03-30 15:04 | PM.IMPN ---
Progress Note: A&P Assessment and Plan (1) Colitis: Code(s): K52.9 - Noninfective gastroenteritis and colitis, unspecified Status: Acute Assessment and Plan: Patient at higher risk of developing C diff colitis with chronic antibiotic use. The patient began having symptoms of nausea, vomiting, abdominal pain, abdominal distension, and diarrhea over the previous few days prior to arrival. CT abdomen pelvis showed diarrhea with wall thickening in the distal colon which demonstrates colitis which could be acute, chronic or acute on chronic. Dr. Linton GI specialist was consulted from the ER and evaluated the patient and believed this could be related to infectious colitis and recommend continuing IV antibiotics at this time and monitoring patient's symptoms. Patient is tolerating diet; she is on a self-placed soft diet and only eating part of her meals. Abdomen still distended. She will be going for Colonoscopy tomorrow. Dr. Bishop (ID) consulted earlier in stay and appreciate recommendations. Will continue IV Vancomycin for right leg infection until patient follows up with [facility]. Patient has finished stop date of Cefuroxime Will continue monitoring the patient's symptoms. Input from GI and Infectious Disease is greatly appreciated Encouraged PO intake Colonoscopy tomorrow per Dr. Linton (2) Severe sepsis: Code(s): A41.9 - Sepsis, unspecified organism; R65.20 - Severe sepsis without septic shock Status: Resolved Assessment and Plan: The patient met criteria for severe sepsis on arrival with leukocytosis at 26.2k, with a left shift and lactic acidosis, tachycardic heart rate, with a source of infection being infectious colitis vs recurrent right knee infection. WBC 12.2K today; stable Blood cultures negative after 5 days and stool cultures are negative Continue IV vanc per ID recommendations. Cefuroxime treatment course complete Continue monitoring patients vitals, leukocytosis and symptoms. (3) Acute hypokalemia: Code(s): E87.6 - Hypokalemia Status: Acute Assessment and Plan: The patient had hypokalemia on admission. This morning her potassium was 4.0 Trend daily Replace as needed (4) Infection of right knee: Code(s): M00.9 - Pyogenic arthritis, unspecified Status: Acute Assessment and Plan: The patient has been on chronic antibiotics for recurring right knee infection which is managed by [facility] with IV vancomycin. She tells me she does not know of an anticipated stop date as of yet. February 2019 she was on rifampin and Bactrim and after she was discharged from [facility] 03/07/2019 she was continued on IV vancomycin. Continue IV vanc per ID recommendations which are greatly appreciated She will continue IV vanc at discharge until she follow up with [facility] (5) Antibiotic long-term use: Code(s): Z79.2 - custodial (current) use of antibiotics Status: Inactive Assessment and Plan: See above under recurrent knee infection (6) Nausea vomiting and diarrhea: Code(s): R11.2 - Nausea with vomiting, unspecified; R19.7 - Diarrhea, unspecified Status: Acute Assessment and Plan: She had some nausea today, no vomiting. BMs today; she is currently undergoing bowel prep for colonoscopy tomorrow Continue symptomatic treatment for nausea and vomiting. Stool cultures negative (7) Abdominal pain: Qualifiers: Abdominal location: lower abdomen, unspecified Qualified Code(s): R10.30 - Lower abdominal pain, unspecified Code(s): R10.9 - Unspecified abdominal pain Status: Acute Assessment and Plan: Patient reports peng
[2019-03-30 22:00] VITALS: BP 126/97; PULSE 75; RESP 22; TEMP 36.1; O2SAT 100
[2019-03-30 22:15] VITALS: O2SAT 97
[2019-03-30] MEDS: PEG (High)/E-LYTE SOLN 4,000 ML BTL 2000 ML PO (23:43)
[2019-03-31] VITALS (9 sets, daily range): BP systolic 90–133; BP diastolic 40–58; PULSE 60–76; RESP 15–20; TEMP 36.4–36.8; O2SAT 98–100
[2019-03-31 06:41] LABS: Basophils Absolute Auto 0.1 K/mm3 (0.0-0.1); Basophils Percent Auto 0.5 % (0.2-1.2); Eosinophils Absolute Auto 0.3 K/mm3 (0-0.3); Eosinophils Percent Auto 2.4 % (0-4.4); Hematocrit 36.4 % (37.0-47.0); Hemoglobin 11.6 g/dL (12.0-15.0); Immature Granulocyte Absolute 0.14 K/mm3 (0.00-0.031); Immature Granulocyte Percent A 1.2 % (0-0.5); Lymphocytes Absolute Auto 3.28 K/mm3 (0.9-3.2); Mean Corpuscular HGB Conc 31.9 g/dl (32-36); Mean Corpuscular Hemoglobin 29.1 pg (26-34); Mean Corpuscular Volume 91.5 fl (80-100); Mean Platelet Volume 9.2 fl (7.4-10.4); Monocytes Absolute Auto 0.8 K/mm3 (0.1-0.6); Monocytes Percent Auto 7.1 % (2.6-8.5); Neutrophils Absolute Auto 6.8 K/mm3 (1.3-6.7); Neutrophils Percent Auto 59.8 % (45.5-73.1); Platelet Count Result 393 k/mm3 (150-375); Red Blood Count 3.98 M/mm3 (4.2-5.4); Red Cell Distribution Width 13.3 % (11.5-14.5); White Blood Count 11.3 K/mm3 (4.5-10.0)
[2019-03-31 06:54] LABS: Blood Urea Nitrogen 9 mg/dL (7-17); Calcium 8.7 mg/dL (8.4-10.2); Carbon Dioxide 39 mmol/L (22-30); Chloride 95 mmol/L (98-107); Estimated CRCL calculation 176 ml/min; Estimated Glomerular Filt Rate > 60; Glucose 98 mg/dL (65-105); Sodium 141 mmol/L (137-145)
[2019-03-31] MEDS: MORPHINE SULFATE 30 MG TABCR PO (10:11)
[2019-03-31] MEDS: LACTATED RINGERS 1,000 ML 150 ML IV CONT (10:55)
--- NOTE | 2019-03-31 11:19 | WPDANESEPPF ---
Anes - Initial Pre Proc Eval Procedure: Operation Date: 03/31/19 10:30 Proposed Procedures p Colonoscopy - Aidan Linton MD Date/Time: 03/31/19 11:19 Surgeon: Guerrero Zuniga MD Pre Op Diagnosis: Severe sepsis/Colitis Patient Data Age: 63 Gender: F Height: 5 ft 2 in Weight: 106.7 kg Last Vital Signs Temp 98.3 F 03/31/19 10:55 Pulse 60 03/31/19 10:55 Resp 15 03/31/19 10:55 BP 133/57 L 03/31/19 10:55 Pulse Ox 99 03/31/19 10:55 Allergies Allergy/AdvReac Type Severity Reaction Status Date / Time Penicillins Allergy Unknown Rash Verified 03/31/19 10:53 Home Medications Medication Instructions Recorded Confirmed Type Lactobacillus acidophilus 100 mg PO DAILY 03/20/19 03/20/19 History [Acidophilus] acetaminophen [Tylenol] 650 mg PO Q4-6H PRN 03/20/19 03/20/19 History acidophilus-pectin, citrus 1 cap PO BID 03/20/19 03/20/19 History [Acidophilus Probiotic] albuterol sulfate 0.63 mg INHALATION Q4H PRN 03/20/19 03/20/19 History albuterol sulfate [Ventolin HFA] 2 puff INHALATION QID PRN 03/20/19 03/20/19 History ookiboga-ahbygjwbf-rfjizql HMB 1 ea PO BID 03/20/19 03/20/19 History [Ahmet] ascorbic acid (vitamin C) 500 mg PO BID 03/20/19 03/20/19 History calcium carbonate [Calcium 500] 500 mg PO BID 03/20/19 03/20/19 History cholecalciferol (vitamin D3) 2,000 unit PO DAILY 03/20/19 03/20/19 History [Vitamin D3] cyanocobalamin (vitamin B-12) 100 mcg PO DAILY 03/20/19 03/20/19 History ferrous sulfate [iron] 325 mg PO DAILY 03/20/19 03/20/19 History fluticasone propion-salmeterol 1 inh INHALATION Q12H 03/20/19 03/20/19 History [Advair Diskus] folic acid 1 mg PO DAILY 03/20/19 03/20/19 History furosemide 40 mg PO BID 03/20/19 03/20/19 History guaifenesin [Mucinex] 600 mg PO BID 03/20/19 03/20/19 History levocetirizine 5 mg PO DAILY 03/20/19 03/20/19 History morphine 30 mg PO Q12H 03/20/19 03/20/19 History rctpuhce-lkk-cnffjhp fumarate 15 mg PO DAILY 03/20/19 03/20/19 History [Multi Vitamin] ondansetron HCl [Zofran] 4 mg PO Q6H PRN 03/20/19 03/20/19 History polyethylene glycol 3350 [Miralax] 17 g PO DAILY PRN 03/20/19 03/20/19 History potassium chloride 10 meq PO DAILY 03/20/19 03/20/19 History rifampin 300 mg PO BID 03/20/19 03/20/19 History sennosides [senna] 8.6 mg PO HS PRN 03/20/19 03/20/19 History sertraline 50 mg PO DAILY 03/20/19 03/20/19 History sulfamethoxazole-trimethoprim 1 tablet PO Q12H 03/20/19 03/20/19 History [Bactrim DS] tiotropium bromide [Spiriva with 1 cap INHALATION DAILY 03/20/19 03/20/19 History HandiHaler] Laboratory Tests 03/31/19 03/31/19 06:26 06:26 WBC 11.3 K/mm3 H K/mm3 (4.5-10.0) RBC 3.98 M/mm3 L M/mm3 (4.2-5.4) Hgb 11.6 g/dL L g/dL (12.0-15.0) Hct 36.4 % L % (37.0-47.0) MCV 91.5 fl fl (80-100) MCH 29.1 pg pg (26-34) MCHC 31.9 g/dl L g/dl (32-36) RDW 13.3 % % (11.5-14.5) Plt Count 393 k/mm3 H k/mm3 (150-375) MPV 9.2 fl fl (7.4-10.4) Immature Gran % (Auto) 1.2 % H % (0-0.5) Neut % (Auto) 59.8 % % (45.5-73.1) Lymph % (Auto) 29.0 % % (18.3-44.2) Weld % (Auto) 7.1 % % (2.6-8.5) Eos % (Auto) 2.4 % % (0-4.4) Baso % (Auto) 0.5 % % (0.2-1.2) Lymph # (Auto) 3.28 K/mm3 H K/mm3 (0.9-3.2) Weld # (Auto) 0.8 K/mm3 H K/mm3 (0.1-0.6) Eos # (Auto) 0.3 K/mm3 K/mm3 (0-0.3) Baso # (Auto) 0.1 K/mm3 K/mm3 (0.0-0.1) Abs Immat Gran (auto) 0.14 K/mm3 H K/mm3 (0.00-0.031) Absolute Neuts (auto) 6.8 K/mm3 H K/mm3 (1.3-6.7) Absolute Nucleated RBC 0.0 K/mm3 K/mm3 (0.0-0.012) Nucleated RBC % 0.0 % % (0.0-0.2) Sodium 141 mmol/L mmol/L (137-145) Potassium 3.0 mmol/L L mmol/L (3.4-5.0) Chloride 95 mmol/L L mmol/L (98-107) Carbon Dioxide 39 mmol/L H mmol/L (22-30) BUN 9 mg/dL mg/dL (7-17) Creatinine 0.30 mg
[2019-03-31] MEDS: FERROUS SULFATE 324 MG TABLET PO (13:30)
[2019-03-31] MEDS: POTASSIUM CHLORIDE 20 MEQ PACKET (FOR LIQUID) PO ×3 (13:30→17:33)
[2019-03-31] MEDS: ACIDOPHILUS/BULGARICUS CHEWABLE TABLET 1 TABLET PO ×2 (13:30→17:33)
[2019-03-31] MEDS: FUROSEMIDE 40 MG TABLET PO ×2 (13:31→17:33)
[2019-03-31] MEDS: CYANOCOBALAMIN 1,000 MCG TABLET 1000 MCG PO (13:31)
[2019-03-31] MEDS: FOLIC ACID 1 MG TABLET PO (13:31)
[2019-03-31] MEDS: SERTRALINE HCL 50 MG TABLET PO (13:31)
[2019-03-31] MEDS: CHOLECALCIFEROL 1,000 UNIT TABLET 2000 UNITS PO (13:31)
[2019-03-31] MEDS: LORATADINE 10 MG TABLET PO (13:32)
[2019-03-31] MEDS: ONDANSETRON INJ 4 MG/2 ML VIAL IV PUSH (13:36)
[2019-03-31 14:24] LABS: Vancomycin Trough 8.4 ug/mL (10.0-20.0)
--- NOTE | 2019-03-31 15:56 | PM.DS ---
DS: Diagnosis Admitting Diagnosis Admitting Diagnosis: Sepsis, unspecified organism Discharge Diagnosis (1) Colitis: Code(s): K52.9 - Noninfective gastroenteritis and colitis, unspecified Status: Acute Assessment and Plan: The patient began having symptoms of nausea, vomiting, abdominal pain, abdominal distension, and diarrhea over the previous few days prior to arrival. CT abdomen pelvis showed diarrhea with wall thickening in the distal colon which demonstrates colitis which could be acute, chronic or acute on chronic. Dr. Linton GI specialist was consulted from the ER and evaluated the patient and believed this could be related to infectious colitis. Patient seen by ID and abx recommendations were followed. She has completed a course of IV abx for the colitis. Her abd is crepe box tender but no fever and WBC down to 11K. She had a colonscopy earlier today showing sigmoid colon polyp, diverticulosis and internal hemorrhoids. The polyp was retrieved. Patient eating well since the procedure. (2) Severe sepsis: Code(s): A41.9 - Sepsis, unspecified organism; R65.20 - Severe sepsis without septic shock Status: Resolved Assessment and Plan: The patient met criteria for severe sepsis on arrival with leukocytosis at 26K with a left shift, lactic acidosis, tachycardia, with a source of infection being infectious colitis vs recurrent right knee infection. Most likely from the colitis. Treated with abx and has completed a course. WBC 11K now. Blood cultures negative after 5 days and stool cultures are negative. Colonoscopy showing no erythema. (3) Acute hypokalemia: Code(s): E87.6 - Hypokalemia Status: Acute Assessment and Plan: The patient had hypokalemia on admission. This was replaced. Potassium low again this morning which was also replaced. (4) Infection of right knee: Code(s): M00.9 - Pyogenic arthritis, unspecified Status: Acute Assessment and Plan: The patient has been on chronic antibiotics for recurring right knee infection which is managed by [facility] with IV vancomycin. She tells me she does not know of an anticipated stop date as of yet. February 2019 she was on rifampin and Bactrim and after she was discharged from [facility] 03/07/2019 she was continued on IV vancomycin. Patient was seen by here. We continued IV vancomycin per ID recommendations which are greatly appreciated. Patient will continue IV vanc at discharge until she follows up with [facility]. (5) Antibiotic long-term use: Code(s): Z79.2 - long term care pharmacist (current) use of antibiotics Status: Inactive Assessment and Plan: See above under recurrent knee infection (6) Nausea vomiting and diarrhea: Code(s): R11.2 - Nausea with vomiting, unspecified; R19.7 - Diarrhea, unspecified Status: Acute Assessment and Plan: No further nausea or vomiting. Tolerated the bowel prep well. Eating normally postprocedure. (7) Abdominal pain: Qualifiers: Abdominal location: lower abdomen, unspecified Qualified Code(s): R10.30 - Lower abdominal pain, unspecified Code(s): R10.9 - Unspecified abdominal pain Status: Acute Assessment and Plan: Patient reports abdominal pain still. Pain is about the same. Colonoscopy not showing any significant erythema. DS: Summary Hospital Course Reason for hospitalization: 63yo female here for nausea, vomiting and diarrhea and found to have colitis. Please see H&P for details. Hospital Course: As above. Time Spent with Patient Time attestation: Total time spent providing and/or coordinating discharge services: 34 minutes Time spent: Greater than 30 minutes Exam Narrative: Exam Narrative: Gen - NARD Chest - CTA bilaterally, nml RR CV - RRR S1/S2 Abd - Soft, obese, very sensitive to light touch. Pain is not consistent in 1 location. Ext -trace pedal edema Psych - Nml mood
--- NOTE | 2019-04-03 13:38 | PC.NURSE ---
Pathology of polyp shows tubular adenoma. Dr. Nadia trimble.
== END 2019-03-31 19:08 | DRG 392 ==
LOC: ANHED 17:38 → ANH2MED 18:20
PROVIDERS: Internal Medicine Gastroenterology; Physician Assistant; Admitting Provider Internal Medicine; Emergency Provider Emergency Medicine; Visit Provider Internal Medicine
PROC: 0DJD8ZZ Inspection of Lower Intestinal Tract, Via Natural or Artificial Opening Endoscopic (ICD-10-PCS; CPT 45378; principal; 2019-03-31 10:30)
DX: A09 Infectious gastroenteritis and colitis, unspecified (principal); J96.10 Chronic respiratory failure, unspecified whether with hypoxia or hypercapnia; L03.115 Cellulitis of right lower limb; M00.9 Pyogenic arthritis, unspecified; Z68.41 Body mass index [BMI] 40.0-44.9, adult; E66.01 Morbid (severe) obesity due to excess calories; I27.20 Pulmonary hypertension, unspecified; J44.9 Chronic obstructive pulmonary disease, unspecified; I89.0 Lymphedema, not elsewhere classified; Z86.14 Personal history of Methicillin resistant Staphylococcus aureus infection; K63.5 Polyp of colon; Z66 Do not resuscitate; Z96.653 Presence of artificial knee joint, bilateral; Z90.49 Acquired absence of other specified parts of digestive tract; Z87.891 Personal history of nicotine dependence; E87.6 Hypokalemia; Z99.81 Dependence on supplemental oxygen; F32.9 Major depressive disorder, single episode, unspecified; I73.9 Peripheral vascular disease, unspecified; K64.8 Other hemorrhoids
CPT/HCPCS: 36415; 71045; 73560; 74177; 80048; 80053; 80202; 81001; 83605; 83735; 85025; 85610; 85730; 87040; 87045; 87046; 87081; 87324; 87427; 88305; 93005; 93970; 94640; 96361; 96365; 96367; 99291; A9270; J1956; J2405; J2704; J3370; J3480; J7030; J7120; Q9967

== ENCOUNTER 2019-04-12 14:21 | Inpatient (IN) | payer OTHER, SELFPAY ==
[2019-04-12] VITALS (7 sets, daily range): BP systolic 113–130; BP diastolic 58–70; PULSE 90–130; RESP 18–24; TEMP 36.8–37.9; O2SAT 90–99
--- NOTE | ~2019-04-12 | XR_ITS ---
EXAMINATION: XR chest 1V portable DATE: 04/12/2019 15:35 INDICATION: Evaluate pre-existing PICC line positioning TECHNIQUE: Portable AP upright view of the chest was obtained. COMPARISON: Chest radiograph dated 03/22/2019 FINDINGS: Left upper extremity peripherally inserted central venous catheter (PICC) tip at the caudal superior vena cava unchanged mild elevation of the left hemidiaphragm. Decrease in prior opacities in the lef t lower lung zone. No pulmonary edema, pleural effusion or pneumothorax. Cardiomegaly. IMPRESSION: 1. Left upper extremity PICC line tip in the caudal superior vena cava. 2. Decrease in mild opacities at the left lower lung zone which could represent improving atelectasis or pneumonia. 3. Cardiomegaly. Reviewed, dictated and finalized at location A. INE MADE SHOE UNIT WORKER
--- NOTE | ~2019-04-12 | XR_ITS ---
EXAMINATION: XR abdomen obstructive series DATE: 04/14/2019 08:02 INDICATION: C. Difficile colitis. TECHNIQUE: Upright and supine views of the abdomen on 3 radiographs were obtained. COMPARISON: CT abdomen and pelvis 04/12/2019 FINDINGS: The colon is distended and demonstrates fold thickening. There is a moderate volume of stoo l in the colon. The small bowel is normal in caliber. No free intraperitoneal gas. IMPRESSION: 1. Distended colon with fold thickening, consistent with colitis and adynamic ileus. Reviewed, dictated and finalized at location A. ITALITY HOUSE SUPERVISOR IMPRESSION: 1. Distended colon with fold thickening, consistent with colitis and adynamic i leus.
--- NOTE | ~2019-04-12 | XR_ITS ---
EXAMINATION: XR abdomen obstructive series DATE: 04/13/2019 09:06 INDICATION: Colitis. Abdominal pain and distention. TECHNIQUE: Frontal supine and upright views of the abdomen were obtained. COMPARISON: CT dated 04/12/2019 FINDINGS: Gas is seen in the stomach and in the transverse and sigmoid colon. Featureless sigmoid colon consist ent with chronic colitis. No pneumatosis.No dilated gas-filled loops of bowel to suggest obstruction. No free intraperitoneal gas. Cholecystectomy clips in the right upper quadrant. Visualized lung bas es are clear. Moderate thoracolumbar spondylosis. IMPRESSION: 1. No free intraperitoneal gas or dilated gas-filled loops of bowel to suggest obstruction. 2. Featureless a haustral pattern to the sigmoid colon consistent with chronic colitis. Reviewed, dictated and finalized at location A. EGNATOR HELPER
--- NOTE | ~2019-04-12 | CT_ITS ---
EXAMINATION: CT abdomen pelvis w con DATE: 04/12/2019 17:20 INDICATION: Abdominal distention, nausea, vomiting and diarrhea. TECHNIQUE: Computed tomography (CT) of the abdomen and pelvis was performed with 100 mL Omnipaque-350 intravenous contrast. Automated exposure control and iterative reconstruction technique were employe d. The dose-length product was 1390.98 mGy-cm. COMPARISON: 03/24/2019 FINDINGS: Mild bibasilar atelectasis. Borderline heart size. No pericardial or pleural effusion. Cholecystectom y clips the gallbladder fossa. Liver, spleen, bilateral adrenal glands and kidney are normal. Subcent imeter low-attenuation likely cyst at the lower pole of the left kidney. Fatty atrophy of the pancrea s. Small bowel is normal with no obstruction. The appendix is not visualized. No pericecal inflammato ry change to suggest acute appendicitis. Again seen is prominent edematous wall thickening of the dis stewart colon extending from the mid descending colon through the anus. There is mucosal enhancement thro ughout with no pneumatosis or portal venous gas. Bladder, uterus and bilateral adnexa are unremarkabl e. No free intraperitoneal gas or fluid. No pathologically enlarged abdominal or pelvic lymphadenopat hy. Mild scattered atherosclerotic plaque in the aorta and several of the other arteries with no hemo dynamically significant stenosis at the celiac or superior mesenteric axis. The inferior mesenteric a rtery also is opacified with contrast as are the mesenteric vessels extending to the affected distal colon which appears hyperemic. Severe lower lumbar facet osteoarthritis. Otherwise relatively mild sc attered degenerative skeletal changes. IMPRESSION: 1. Persistent distal colitis most likely either infectious or inflammatory in etiology. Reviewed, dictated and finalized at location A. ICAL TESTER IMPRESSION: 1. Persistent distal colitis most likely either infectious or inflammatory in e tiology.
--- NOTE | ~2019-04-12 | XR_ITS ---
EXAMINATION: XR abdomen obstructive series DATE: 04/15/2019 16:24 INDICATION: C. Difficile colitis and ileus. TECHNIQUE: Upright and supine views of the abdomen on 3 radiographs were obtained. COMPARISON: Abdomen radiographs 04/14/2019 FINDINGS: The colon is distended and demonstrates fold thickening. There is a moderate volume of stoo l in the colon. No free intraperitoneal gas. Surgical clips in the right upper quadrant are likely fr om cholecystectomy. IMPRESSION: 1. Distended colon with fold thickening, consistent with colitis and adynamic ileus. Reviewed, dictated and finalized at location A. [place] [employer]OC[employer]ATE B[employer]INGUAL IMPRESSION: 1. Distended colon with fold thickening, consistent with colitis and adynamic i leus.
--- NOTE | 2019-04-12 14:28 | ED.NAVMDI ---
HPI - Nausea/Vomiting/Diarrhea General Chief complaint: Nausea/Vomiting/Diarrhea Stated complaint: abd pain Time Seen by Provider: 04/12/19 14:28 Source: patient Mode of arrival: EMS Limitations: no limitations History of Present Illness HPI Narrative: A 63 y/o female presents to the ED, via EMS, with c/o N/V/D. Pt states that the diarrhea started 2 weeks ago and has been constant since. She adds that she started to have diffuse ABD pain this morning with ABD bloating. Pt denies fever and CP. She has a left arm PICC line placed and a PMHx of cholecystectomy. Pt was given Zofran en route with no relief. MD elicited complaint: nausea, vomiting and diarrhea Pertinent past history: abdominal surgery Onset (ago): week(s) (2) Associated abdominal pain: Yes Location of pain: diffuse Pain consistency: constant Relieving factors: none Associated symptoms: other (ABD bloating) Treatment prior to arrival: other (Zofran) Related Data Home Medications Medication Instructions Recorded Confirmed Ahmet 1 ea PO BID 03/20/19 03/20/19 Lactobacillus acidophilus 100 mg PO DAILY 03/20/19 03/20/19 [Acidophilus] Multi Vitamin 15 mg PO DAILY 03/20/19 03/20/19 Spiriva with HandiHaler 1 cap INHALATION DAILY 03/20/19 03/20/19 acetaminophen [Tylenol] 650 mg PO Q4-6H PRN 03/20/19 03/20/19 acidophilus-pectin, citrus 1 cap PO BID 03/20/19 03/20/19 [Acidophilus Probiotic] albuterol sulfate 0.63 mg INHALATION Q4H PRN 03/20/19 03/20/19 albuterol sulfate [Ventolin HFA] 2 puff INHALATION QID PRN 03/20/19 03/20/19 ascorbic acid (vitamin C) 500 mg PO BID 03/20/19 03/20/19 calcium carbonate [Calcium 500] 500 mg PO BID 03/20/19 03/20/19 cholecalciferol (vitamin D3) 2,000 unit PO DAILY 03/20/19 03/20/19 [Vitamin D3] cyanocobalamin (vitamin B-12) 100 mcg PO DAILY 03/20/19 03/20/19 ferrous sulfate [iron] 325 mg PO DAILY 03/20/19 03/20/19 fluticasone propion-salmeterol 1 inh INHALATION Q12H 03/20/19 03/20/19 [Advair Diskus] folic acid 1 mg PO DAILY 03/20/19 03/20/19 furosemide 40 mg PO BID 03/20/19 03/20/19 guaifenesin [Mucinex] 600 mg PO BID 03/20/19 03/20/19 levocetirizine 5 mg PO DAILY 03/20/19 03/20/19 ondansetron HCl [Zofran] 4 mg PO Q6H PRN 03/20/19 03/20/19 polyethylene glycol 3350 [Miralax] 17 g PO DAILY PRN 03/20/19 03/20/19 sennosides [senna] 8.6 mg PO HS PRN 03/20/19 03/20/19 sertraline 50 mg PO DAILY 03/20/19 03/20/19 Allergies Allergy/AdvReac Type Severity Reaction Status Date / Time Penicillins Allergy Unknown Rash Verified 03/31/19 10:53 Review of Systems Review of Systems: Narrative: CONSTITUTIONAL: Denies fever, chills, or sweats. CARDIOVASCULAR: Denies chest pain, palpitations, or edema. RESPIRATORY: Denies cough or dyspnea. GASTROINTESTINAL: Reports diffuse abdominal pain, abdominal bloating, nausea, vomiting, or diarrhea. MUSCULOSKELETAL: Denies back pain, joint pain, or myalgia. NEUROLOGIC: Denies headache, numbness, or weakness. All systems reviewed & are unremarkable except as noted in HPI and below PMFSH Past Medical History Medical History Anemia Antibiotic long-term use Due to recurrent infections to her right femoral fracture Anxiety Cellulitis Chronic respiratory failure Uses 3L via [place] COPD (chronic obstructive pulmonary disease) Depression Fibromyalgia Lymphedema Patellar bursitis PVD (peripheral vascular disease) Right femoral fracture With recurrent infections Surgical History Surgical History History of appendectomy History of cardiac catheterization History of colonoscopy History of esophagogastroduodenoscopy (EGD) History of left knee replacement History of right knee joint replacement Hx of cholecystectomy Surgical history unknown Family History Family History Father Acute myocardial infarction Mother Asthma Chronic obstructive pulmonary disease Social H
--- NOTE | 2019-04-12 15:26 | PC.NURSE ---
Waiting on Xray to verify PICC line placement.
[2019-04-12 16:23] LABS: Basophils Absolute Auto 0.2 K/mm3 (0.0-0.1); Basophils Percent Auto 0.5 % (0.2-1.2); Hematocrit 44.6 % (37.0-47.0); Hemoglobin 14.1 g/dL (12.0-15.0); Immature Granulocyte Absolute 0.45 K/mm3 (0.00-0.031); Immature Granulocyte Percent A 1.3 % (0-0.5); Lymphocytes Absolute Auto 1.99 K/mm3 (0.9-3.2); Lymphocytes Percent Auto 5.7 % (18.3-44.2); Mean Corpuscular HGB Conc 31.6 g/dl (32-36); Mean Corpuscular Hemoglobin 28.7 pg (26-34); Mean Corpuscular Volume 90.8 fl (80-100); Mean Platelet Volume 9.8 fl (7.4-10.4); Monocytes Percent Auto 8.4 % (2.6-8.5); Neutrophils Absolute Auto 29.5 K/mm3 (1.3-6.7); Neutrophils Percent Auto 84.1 % (45.5-73.1); Platelet Count Result 465 k/mm3 (150-375); Red Blood Count 4.91 M/mm3 (4.2-5.4); Red Cell Distribution Width 13.7 % (11.5-14.5); White Blood Count 35.1 K/mm3 (4.5-10.0)
[2019-04-12] MEDS: SODIUM CHLORIDE 0.9% IV 1,000 ML 999 ML IV CONT (16:23)
[2019-04-12] MEDS: METOCLOPRAMIDE HCL INJ 10 MG/2 ML VIAL IV PUSH (16:23)
[2019-04-12] MEDS: MORPHINE SULFATE 4 MG/ML INJ IV PUSH (16:23)
[2019-04-12] MEDS: ONDANSETRON INJ 4 MG/2 ML VIAL IV PUSH (16:23)
[2019-04-12 16:32] LABS: Lactic Acid Reflex 2.1 mmol/L (0.7-2.1)
[2019-04-12 16:33] LABS: Alanine Aminotransferase 29 U/L (4-35); Albumin Level 3.6 g/dL (3.5-5.1); Alkaline Phosphatase 148 U/L (38-126); Aspartate Amino Transferase 30 U/L (14-36); Bilirubin,Total 0.6 mg/dL (0.2-1.3); Blood Urea Nitrogen 14 mg/dL (7-17); Carbon Dioxide 33 mmol/L (22-30); Chloride 96 mmol/L (98-107); Estimated Glomerular Filt Rate > 60; Glucose 164 mg/dL (65-105); Sodium 134 mmol/L (137-145)
[2019-04-12 16:53] LABS: Lipase < 10 U/L (23-300)
[2019-04-12 16:54] LABS: Add Urine Microscopic? YES; Appearance Urine Clear (Clear); Bilirubin Urine Negative (Negative); Blood Urine Negative (Negative); Color Urine Yellow (Yellow); Glucose Urine UA Negative (Negative); Ketones Urine Negative (Negative); Leukocyte Esterase Ur Trace LEU/UL (Negative); Mucus Urine Rare /lpf; Nitrate Urine Negative (Negative); Protein Urine Negative (Negative); RBC Urine 0-2 /hpf (0-2); Specific Grav Ur 1.017 (1.001-1.035); Urobilinogen Urine Negative mg/dL (<2.0); WBC Urine 0-3 /hpf
[2019-04-12] MEDS: metroNIDAZOLE 500 MG/ISO 100ML 500 MG/100 ML BAG 100 MG IVPB (17:55)
[2019-04-12] MEDS: FIDAXOMICIN 200 MG TABLET PO ×2 (17:56→20:38)
[2019-04-12 19:19] LABS: Reflex Lactic Acid Yes or No Add Lactic
--- NOTE | 2019-04-12 20:01 | PC.NURSE ---
Upon assessment of the patient it was found that the rectal tube to be misplaced. Tube repositioned.
[2019-04-12] MEDS: SODIUM CHLORIDE 0.9% IV 1,000 ML 125 ML IV CONT (20:26)
[2019-04-12 20:41] LABS: Lactic Acid 2.4 mmol/L (0.7-2.1)
[2019-04-13] MEDS: metroNIDAZOLE 500 MG/ISO 100ML 500 MG/100 ML BAG 100 MG IVPB ×2 (02:17→09:42)
[2019-04-13] MEDS: SODIUM CHLORIDE 0.9% IV 1,000 ML 125 ML IV CONT (06:01)
[2019-04-13 06:23] VITALS: BP 110/59; PULSE 128; RESP 22; TEMP 36.6; O2SAT 93
[2019-04-13 08:00] VITALS: PULSE 128; RESP 22; O2SAT 93
--- NOTE | 2019-04-13 08:52 | PM.IMHP ---
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 She also reports fever and chills. She reports that she initially felt better following hospital discharge but sx began approximately 1 week ago. She reports diffuse abdominal pain which is severe. She admits to anorexia. She reports vomiting 3-5x per day. She denies hematemesis and feculent vomit. She endorses brown, watery diarrhea 4-5x/day. She denies malodor, melena and hematochezia. On presentation to the ED, vitals were temp of 98.3, HR 90, RR 18, SpO2 90, BP 113/69. She developed temp of 100.2F overnight and does meet SIRS criteria. Suspect source is colitis and C. Diff is the suspected etiology. Lactic acid 2.1 initially and reflex 2.4. She has marked leykocytosis (35.1 k/mm3) with a left shift. CT abd/pelvis w contrast revealed distal colitis without free intraperitoneal gas or fluid. Additional labs at presentation include Hb 14.1, Hct 44.6, platelet count 465, sodium 134, potassium 3.0, chloride 96, CO2 33, BUN 14, Cr 0.3, calcium 9.0, AST 30, ALT 29, ALP 148, albumin 3.6, and lipase <10. UA without evidence of UTI. Blood cultures as well as c. diff toxin assay were obtained and are pending. She is s/p 1 L fluid bolus in the ED. She was started empirically on fidaxomicin PO and metronidazole IV. Review of Systems Review of Systems: Narrative: Constitutional:Admits to fever and chills. Endorses anorexia. Eyes: Denies vision change. No additional eye complaints. ENT: Denies change in hearing, nasal congestion, dysphagia, odynophagia, and sore throat. Cardiovascular: Denies palpitations and chest pain. Admits to occasional PND and orthopnea. Respiratory: Denies cough. On 3L NC at baseline. Admits to SOB at baseline. Gastrointestinal: Endorses severe abdominal pain and distention. Admits to vomiting and diarrhea. Unsure if passing flatus. Genitourinary: Denies dysuria, frequency, urgency, and hesitancy. Musculoskeletal: Reports chronic RLE pain at site of fracture and subsequent recurrent infection. Does not feel it is acutely infected at this time. Endorses chronic weakness and cannot ambulate. She uses a wheelchair for mobility. Skin: Denies lesions and wounds. Denies erythema to the RLE. Neurologic: Denies focal weakness, paresthesias, confusion, and speech change. Psychiatric: Denies mood change. Denies anxiety and depression. Hematologic: Denies easy bruising and bleeding. All systems reviewed & are unremarkable except as noted in HPI and below PMFSH Past Medical History Medical History (Updated 04/13/19 @ 17:57 by Amna Caban PA-C) Anemia Antibiotic long-term use Due to recurrent infections to her right femoral fracture Anxiety Cellulitis Chronic respiratory failure Uses 3L via NC COPD (chronic obstructive pulmonary disease) Depression Fibromyalgia Lymphedema Patellar bursitis PVD (peripheral vascular disease) Right femoral fracture With recurrent infections Surgical History Surgical History History of appendectomy History of cardiac catheterization History of colonoscopy History of esophagogastroduodenoscopy (EGD) History of left knee replacement History of right knee joint replacement Hx of cholecystectomy Surgical history unknown Family History Family History (Reviewed 04/13/19 @ 09:24 by Amna Ambrose
[2019-04-13] MEDS: FIDAXOMICIN 200 MG TABLET PO (08:56)
[2019-04-13 10:10] LABS: Basophils Absolute Auto 0.1 K/mm3 (0.0-0.1); Basophils Percent Auto 0.2 % (0.2-1.2); Hematocrit 44.2 % (37.0-47.0); Immature Granulocyte Absolute 1.32 K/mm3 (0.00-0.031); Immature Granulocyte Percent A 3.4 % (0-0.5); Lymphocytes Absolute Auto 2.11 K/mm3 (0.9-3.2); Lymphocytes Percent Auto 5.5 % (18.3-44.2); Mean Corpuscular HGB Conc 31.7 g/dl (32-36); Mean Corpuscular Volume 91.5 fl (80-100); Mean Platelet Volume 9.6 fl (7.4-10.4); Monocytes Absolute Auto 3.3 K/mm3 (0.1-0.6); Monocytes Percent Auto 8.5 % (2.6-8.5); Neutrophils Absolute Auto 31.7 K/mm3 (1.3-6.7); Neutrophils Percent Auto 82.4 % (45.5-73.1); Platelet Count Result 420 k/mm3 (150-375); Red Blood Count 4.83 M/mm3 (4.2-5.4); Red Cell Distribution Width 13.5 % (11.5-14.5); White Blood Count 38.4 K/mm3 (4.5-10.0)
[2019-04-13 10:51] LABS: Lactic Acid Reflex 3.1 mmol/L (0.7-2.1)
[2019-04-13 11:06] LABS: Alanine Aminotransferase 26 U/L (4-35); Alkaline Phosphatase 143 U/L (38-126); Aspartate Amino Transferase 39 U/L (14-36); Bilirubin,Total 0.8 mg/dL (0.2-1.3); Blood Urea Nitrogen 15 mg/dL (7-17); Calcium 8.6 mg/dL (8.4-10.2); Carbon Dioxide 26 mmol/L (22-30); Chloride 101 mmol/L (98-107); Estimated Glomerular Filt Rate > 60; Glucose 143 mg/dL (65-105); Magnesium 1.5 mg/dL (1.6-2.3); Phosphorus 2.3 mg/dL (2.5-4.5); Potassium 2.9 mmol/L (3.4-5.0); Sodium 135 mmol/L (137-145)
[2019-04-13 11:17] LABS: CRP 40.8 mg/dL (<1.0)
[2019-04-13 12:00] VITALS: BMI 43.4
[2019-04-13 13:09] LABS: Reflex Lactic Acid Yes or No Add Lactic
--- NOTE | 2019-04-13 13:34 | WPDINFPN2 ---
Progress Note: A&P Assessment and Plan (1) C. difficile colitis: Code(s): A04.72 - Enterocolitis due to Clostridium difficile, not specified as recurrent Status: Acute Assessment and Plan: 1. Chronic diarrhea with acute worsening, suspect C diff infection 2. 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 REC Oral Vanc # 1 / [address] of fidax[address]in. Continue IV Vanc, my colleagues at [facility] will need to decide on length of therapy. Subjective Date/time seen: 04/13/19 13:34 Objective Data Vital Signs Vital Signs: Vital Signs - 24 hr 04/12/19 15:08 04/12/19 17:37 04/12/19 17:58 Temperature 36.8 C Pulse Rate 90 108 H 120 H Respiratory Rate 18 19 24 H Blood Pressure 113/69 129/68 123/59 L Pulse Oximetry 90 99 91 04/12/19 18:21 04/12/19 20:36 04/12/19 21:55 Temperature 37.9 C H 37.9 C H Pulse Rate 115 H 130 H Respiratory Rate 21 H 20 Blood Pressure 123/58 L 130/70 Pulse Oximetry 96 91 04/12/19 22:06 04/13/19 06:23 04/13/19 08:00 Temperature 37.3 C 36.6 C Pulse Rate 128 H 128 H Respiratory Rate 22 H 22 H Blood Pressure 110/59 L Pulse Oximetry 93 93 Intake/Output Intake/Output: Intake & Output 04/10/19 04/11/19 04/12/19 04/13/19 23:59 23:59 23:59 23:59 Intake Total 1200 1700 Output Total 200 Balance 1200 1500 Meds/Results Medications: Active Medications Generic Name Dose Route Start Last Admin Trade Name Freq PRN Reason Stop Dose Admin Albuterol 2.5 mg 04/13/19 10:12 Albuterol Sulf Neb 2.5mg/0.5ml INHALATION Q4HRT PRN Shortness Of Breath Guaifenesin 600 mg 04/13/19 21:00 Mucinex 12 Hr Tab PO Q12HR SCOTT Sodium Chloride 1,000 mls @ 125 mls/hr 04/12/19 17:10 04/13/19 06:01 Normal Saline Iv IV CONT 125 mls/hr .Q8H SCOTT Administration Potassium Chloride 500 mls @ 125 mls/hr 04/13/19 11:11 Kcl 40 Meq/D5w 500 Ml Peripheral IVPB 04/13/19 15:10 ONCE ONE Acetaminophen 1,000 mg in 100 mls @ 400 mls/hr 04/13/19 11:40 Ofirmev 1,000 Mg Ivpb IVPB 04/14/19 11:41 Q6H PRN Pain Rated 1-3 Potassium Phosphate 20 mmol/ 256.6667 mls @ 62.5 mls/hr 04/13/19 12:30 Sodium Chloride IVPB 04/13/19 16:36 ONCE ONE Lactobacillus Acidophilus 1 tablet 04/13/19 17:00 Lactinex Chewable Tablet PO BID [facility] Morphine Sulfate 4 mg 04/12/19 17:08 Morphine Sulfate Inj IV PUSH Q2H PRN Pain Rated 7-10 Morphine Sulfate 2 mg 04/13/19 10:16 Morphine Sulfate Inj IV PUSH Q4H PRN Pain Rated 4-6 Non-Formulary Medication 1 each 04/13/19 17:00 Uyeylaoy-Fxeiilzzw-Wzchrsi Hmb [Ahmet] PO 05/13/19 17:01 BID [facility] Non-Formulary Medication 5 mg 04/14/19 09:00 Levocetirizine PO 05/14/19 09:01 DAILY [facility] Ondansetron HCl 4 mg 04/12/19 17:08 Zofran Inj IV PUSH Q4H PRN Nausea Fluticasone/Salmeterol 2 puff 04/13/19 20:00 Advair Hfa 230-21 Mcg (*Sp) Inhaler INHALATION Q12HRT [facility] Sertraline HCl 50 mg 04/14/19 09:00 Zoloft PO DAILY [facility] Tiotropium [place] 1 cap 04/14/19 09:00 Spiriva INHALATION DAILY [facility] Vancomycin HCl 125 mg 04/13/19 18:00 Vancomycin Oral PO 04/23/19 12:01 Q6HR [facility] Radiology Results: ITS Impressions Chest X-Ray 04/12/19 15:57 IMPRESSION: 1. Left upper extremity PICC line tip in the caudal superior vena cava. 2. Decrease in mild opacities at the left lower lung zone which could represent improving atelectasis or pneumonia. 3. Cardiomegaly. Abdomen/Pelvis CT 04/12/19 17:27 IMPRESSION: 1. Persistent distal colitis most likely either infectious or inflammatory in etiology. Abdomen X-Ray 04/13/19 09:27 IMPRESSION: 1. No free intraperitoneal gas or dilated gas-filled loops of bowel to suggest obstruction. 2. Featureless a haustral pattern to the sigmoid colon consistent with chronic colitis. Labs Labs: Laboratory Resu
[2019-04-13 13:42] LABS: Add Urine Microscopic? YES; Appearance Urine Clear (Clear); Bacteria Urine 4+ /hpf; Bilirubin Urine Negative (Negative); Blood Urine 1+ (Negative); Color Urine Amber (Yellow); Glucose Urine UA Negative (Negative); Ketones Urine Negative (Negative); Leukocyte Esterase Ur 1+ LEU/UL (Negative); Mucus Urine Moderate /lpf; Nitrate Urine Positive (Negative); Protein Urine 1+ mg/dL (Negative); RBC Urine 0-2 /hpf (0-2); Specific Grav Ur 1.028 (1.001-1.035); Urobilinogen Urine Negative mg/dL (<2.0)
[2019-04-13 13:47] LABS: Lactic Acid 2.7 mmol/L (0.7-2.1)
[2019-04-13] MEDS: LACTATED RINGERS 1,000 ML 999 ML IV CONT ×2 (13:50→16:15)
[2019-04-13 14:00] VITALS: BP 151/68; PULSE 122; RESP 22; TEMP 36.7; O2SAT 90
[2019-04-13 14:18] LABS: Erythrocyte Sedimentation Rate 21 mm/hr (0-20)
[2019-04-13 15:57] VITALS: BP 121/44; PULSE 120; RESP 22; TEMP 36.5; O2SAT 97
[2019-04-13] MEDS: LORATADINE 5 MG TABLET PO (16:11)
[2019-04-13 16:24] LABS: Hematocrit 42.7 % (37.0-47.0); Hemoglobin 13.6 g/dL (12.0-15.0); Mean Corpuscular HGB Conc 31.9 g/dl (32-36); Mean Corpuscular Hemoglobin 28.9 pg (26-34); Mean Corpuscular Volume 90.9 fl (80-100); Mean Platelet Volume 10.2 fl (7.4-10.4); Platelet Count Result 400 k/mm3 (150-375); Red Cell Distribution Width 13.6 % (11.5-14.5); White Blood Count 37.8 K/mm3 (4.5-10.0)
[2019-04-13 16:37] LABS: Band Neutrophils Percent 6 % (0-6); Lymphocytes Absolute Manual 3.02 K/mm3 (1.1-4.5); Metamyelocytes Percent 1 %; Monocytes Absolute Manual 4.53 K/mm3 (0.1-0.90); Monocytes Percent Manual 12 % (3-9); Neutrophils Absolute Manual 29.86 K/mm3 (1.7-7.2); Neutrophils Percent Manual 73 % (46-73); Platelet Estimate Increased (Adequate); Total Cells Counted 100
[2019-04-13] MEDS: VANCOMYCIN ORAL 125 MG/2.5 ML SYRUP PO ×2 (17:53→23:58)
[2019-04-13] MEDS: ACIDOPHILUS/BULGARICUS CHEWABLE TABLET 1 TABLET PO (17:54)
--- NOTE | 2019-04-13 18:25 | CONS_ITS ---
DATE OF CONSULTATION: 04/13/2019 REASON FOR CONSULTATION: Diarrhea. HISTORY OF PRESENT ILLNESS: The patient is a 63-year-old female, known to me from March. She was here in the hospital with abdominal pain and chronic diarrhea. She was treated with cefuroxime for presumed infectious colitis, though no positive microbiology. She returned to the hospital yesterday with about 1 week of worsening diarrhea with multiple liquid stools, also diffuse abdominal pain, nausea and subjective fever. Here, she was afebrile with normal vital signs, but did have diffuse tenderness with distention. She was noted to have white blood cell count elevation at 35.1. She was admitted. She was given oral fidaxomicin and IV metronidazole and consultation was requested. Her IV vancomycin continues. She is able to keep liquids down at this time. There has been no hemorrhage and no hypotension. ALLERGIES: PENICILLIN CAUSED RASH. PRESENT MEDICATIONS: List reviewed. No systemic immunosuppressants. HABITS: Ex-smoker. No alcohol. PAST MEDICAL HISTORY: In addition to the above of anxiety, chronic respiratory failure with COPD, depression, fibromyalgia, chronic lower extremity edema, patellar bursitis, peripheral vascular disease, right femoral fracture, right knee joint replacement, cholecystectomy, EGD, and appendectomy. The right knee infection was apparently soft tissue only though that is unconfirmed as to absence of joint involvement. FAMILY HISTORY: Not pertinent to present illness. SOCIAL HISTORY: Ex-nurse's aide, , lives locally. REVIEW OF SYSTEMS: 14-point review otherwise negative. PHYSICAL EXAMINATION: GENERAL: This is a female, who appears her actual age. No acute distress. VITAL SIGNS: T-max 37.9, 128, 22, 110/59. SKIN: Warm and dry. EENT: The conjunctivae are clear. There is no icterus. Mucous membranes well hydrated. NECK: No meningismus. LUNGS: Clear to auscultation. CARDIAC: Tachycardic, regular. No murmurs or gallops. ABDOMEN: Morbidly obese. Not distended. Hypoactive bowel sounds. Diffusely tender. No guarding. No masses. EXTREMITIES: She has mild erythema of the right anterior knee. Surgical incision is closed and there is no sinus tract, fluctuance, tenderness, or warmth. She has 3+ pitting and nonpitting edema in both lower extremities. LABORATORY DATA: Her C difficile assay is positive, was nonreactive 03/21/2019. Blood cultures done yesterday, no growth after a very short incubation. MRSA screen is in process. White count yesterday 35.1, hemoglobin 14.1, platelets are 465. Mild left shift on differential. Hyponatremia seen. Also hypokalemia. Her low chloride has been corrected as has the CO2. Creatinine 0.4. Phosphorus low, magnesium low, AST 39, alkaline phosphatase 143, CRP 41, albumin 3. Urinalysis, no evidence of infection. RADIOLOGY: Abdomen and pelvic CT performed yesterday, distal colitis seen. ASSESSMENT: 1. Chronic diarrhea with acute worsening along with nausea and abdominal pain, now with a positive assay, suspect Clostridium difficile infection. False positive assay is less likely. No previous positive microbiology testing from her stool to explain the colitis. She has been exposed to several antibiotics as outlined above, which would increase her risk for development of her current infection. 2. Right knee infection after joint replacement, undergoing IV vancomycin therapy approximately 5-6 weeks. 3. Morbid obesity. 4. Penicillin allergy. Tolerates cephalosporins. 5. Chronic obstructive pulmonary disease. 6. Chronic leg edema. RECOMMENDATIONS: 1. As she has not failed vancomycin, I would use this agent rather than fidaxomicin. I would continue for 10 additional days. 2.
[2019-04-13] MEDS: POTASSIUM PHOS,M-BASIC-D-BASIC 20 MMOL in SODIUM CHLORIDE 0.9% IV 250 ML 62.5 MMOL IVPB (18:32)
[2019-04-13] MEDS: LACTATED RINGERS 1,000 ML 125 ML IV CONT (18:48)
[2019-04-13] MEDS: MAGNESIUM SULF 2 GM/WATER 50ML 2 GM/50 ML BAG IVPB (18:49)
[2019-04-13 20:10] VITALS: BP 146/76; PULSE 121; RESP 22; TEMP 36.1; O2SAT 96
[2019-04-13] MEDS: TOLNAFTATE 1% POWDER 45 GM BTL 1 APPLIC TOPICAL (21:08)
[2019-04-13 22:22] VITALS: PULSE 119; O2SAT 95
[2019-04-13 23:52] LABS: Lactic Acid Reflex 1.5 mmol/L (0.7-2.1); Magnesium 1.9 mg/dL (1.6-2.3); Potassium 3.2 mmol/L (3.4-5.0)
[2019-04-14] VITALS (9 sets, daily range): BP systolic 130–152; BP diastolic 46–85; PULSE 101–122; RESP 18–22; TEMP 35.9–36.6; O2SAT 93–100
[2019-04-14] MEDS: KCL 20 MEQ/SW 100 ML 100 ML 50 MEQ IVPB (00:30)
[2019-04-14 05:28] LABS: Hematocrit 42.5 % (37.0-47.0); Hemoglobin 13.8 g/dL (12.0-15.0); Mean Corpuscular HGB Conc 32.5 g/dl (32-36); Mean Corpuscular Hemoglobin 28.8 pg (26-34); Mean Corpuscular Volume 88.5 fl (80-100); Mean Platelet Volume 10.3 fl (7.4-10.4); Platelet Count Result 388 k/mm3 (150-375); Red Cell Distribution Width 13.8 % (11.5-14.5); White Blood Count 35.7 K/mm3 (4.5-10.0)
[2019-04-14 05:40] LABS: Blood Urea Nitrogen 12 mg/dL (7-17); Calcium 8.2 mg/dL (8.4-10.2); Carbon Dioxide 27 mmol/L (22-30); Chloride 95 mmol/L (98-107); Estimated CRCL calculation 177 ml/min; Estimated Glomerular Filt Rate > 60; Glucose 136 mg/dL (65-105); Magnesium 1.9 mg/dL (1.6-2.3); Phosphorus 1.8 mg/dL (2.5-4.5); Potassium 3.5 mmol/L (3.4-5.0); Sodium 132 mmol/L (137-145)
[2019-04-14] MEDS: VANCOMYCIN ORAL 125 MG/2.5 ML SYRUP PO ×2 (05:58→14:41)
[2019-04-14 06:28] LABS: Band Neutrophils Percent 16 % (0-6); Lymphocytes Absolute Manual 2.49 K/mm3 (1.1-4.5); Monocytes Absolute Manual 1.42 K/mm3 (0.1-0.90); Monocytes Percent Manual 4 % (3-9); Neutrophils Absolute Manual 31.77 K/mm3 (1.7-7.2); Neutrophils Percent Manual 73 % (46-73); Total Cells Counted 100
[2019-04-14 06:29] LABS: Platelet Estimate Adequate (Adequate)
[2019-04-14] MEDS: LORATADINE 5 MG TABLET PO (08:22)
[2019-04-14] MEDS: SERTRALINE HCL 50 MG TABLET PO (08:22)
[2019-04-14] MEDS: ACIDOPHILUS/BULGARICUS CHEWABLE TABLET 1 TABLET PO ×2 (08:22→16:55)
[2019-04-14] MEDS: TOLNAFTATE 1% POWDER 45 GM BTL 1 APPLIC TOPICAL ×2 (08:23→21:15)
[2019-04-14] MEDS: LACTATED RINGERS 1,000 ML 125 ML IV CONT ×2 (08:26→16:53)
[2019-04-14] MEDS: ONDANSETRON INJ 4 MG/2 ML VIAL IV PUSH (09:25)
--- NOTE | 2019-04-14 09:51 | PM.IMPN ---
Progress Note: A&P Assessment and Plan (1) Severe sepsis: Code(s): A41.9 - Sepsis, unspecified organism; R65.20 - Severe sepsis without septic shock Status: Resolved Assessment and Plan: Patient meets SIRS criteria with tachycardia and markedly elevated white count at 35.7. Lactic acid is within normal limits at 1.5. She is afebrile. Suspected source of sepsis is C. diff colitis with stool toxin assay positive on 04/12/19. Blood cultures are pending. - Continue fluid replacement with IV Lactated Ringers. - Await results of blood cultures - Continue to monitor white count and vitals, watching closely for hypotension. (2) C. difficile colitis: Code(s): A04.72 - Enterocolitis due to Clostridium difficile, not specified as recurrent Status: Acute Assessment and Plan: Per chart review, patient has a history of chronic antibiotic use due to recurrent right knee cellulitis. Currently on petroleum terminal plant operator IV Vancomycin started in February 2019 per [facility] ID, administered through PICC line. She had a prior hospitalization from 03/21/19-03/31/19 during which she was initiated on treatment for C. diff colitis with PO Vancomycin and discontinued when C. diff toxin resulted negative. She was then treated with IV Levaquin and Flagyl and discharged with Cefuroxime for colitis and IV Vancomycin for cellulitis. C. Diff toxin from 04/12/19 is positive. Patient reports multiple episodes of diarrhea and currently has rectal catheter in place with brown watery diarrhea in catheter bag. An obstructive series abdomen XR performed on 04/12 revealed chronic colitis with no evidence of obstruction. A repeat obstructive series abdomen XR performed today reveals a distended colon with fold thickening consistent with colitis and adynamic ileus. - Continue IV Lactated Ringers to replace GI losses. - Continue PO Vancomycin [address] Bishop with recommendations greatly appreciated. Started on 04/13/19 with anticipated stop date 04/23/19 after 40 doses. - Patient refused to take oral vanc this morning as she believes it will cause further vomiting. Consider NG decompression for N/V refractory to Zofran. Vancomycin may be given via NG. - Continue probiotic (3) UTI (urinary tract infection): Code(s): N39.0 - Urinary tract infection, site not specified Status: Acute Assessment and Plan: Urinalysis on 3/2 consistent with UTI with positive nitrates, 1+ leuk esterase, and WBC. Urine cultures pending. - Continue 1 g IV Ceftriaxone Q24H. Started on 04/13/19. - Await urine cultures and de-escalate antibiotic therapy based on susceptibility. (4) Acute hypokalemia: Code(s): E87.6 - Hypokalemia Status: Acute Assessment and Plan: Likely due to GI losses in diarrhea. Current potassium is within normal limits at 3.5. - Recheck potassium level this evening and replete as necessary. (5) Hypomagnesemia: Code(s): E83.42 - Hypomagnesemia Status: Acute Assessment and Plan: Suspected due to GI losses in diarrhea. Magnesium currently within normal limits at 1.9 - Recheck magnesium level this evening and replete as necessary. (6) Hypophosphatasia: Code(s): E83.39 - Other disorders of phosphorus metabolism Status: Acute Assessment and Plan: Currently low at 1.8, likely due to poor dietary intake and GI losses. - Administer 250 mg KPhos x3 doses - Recheck phosphorous level this evening and replete as necessary. (7) Nausea vomiting and diarrhea: Code(s): R11.2 - Nausea with vomiting, unspecified; R19.7 - Diarrhea, unspecified Status: Acute Assessment and Plan: Continues to report nausea with one episode of vomiting today. No hematemesis or feculent emesis. - Continue NPO diet with ice chips and sips for medications. - Continue IV Zofran prn Nausea/Vomiting - Consider NG decompression for N/V refractory to antiemetics. (8) I
[2019-04-14] MEDS: POTASSIUM PHOS/SODIUM PHOS 250 MG TABLET PO ×3 (10:07→23:49)
[2019-04-14 11:27] LABS: Albumin Level 2.6 g/dL (3.5-5.1)
[2019-04-14 11:28] LABS: Hemoglobin A1C 5.6 % (<5.7)
--- NOTE | 2019-04-14 11:29 | WPDINFPN2 ---
Progress Note: A&P Assessment and Plan (1) C. difficile colitis: Code(s): A04.72 - Enterocolitis due to Clostridium difficile, not specified as recurrent Status: Acute Assessment and Plan: 1. Chronic diarrhea with acute worsening, due to C diff infection. Exam stable, WBC with slight decline though still high. Other causes of the leukocytosis are unlikely 2. R knee infection, treated intermediate teacher with IV vanc Improved exam today. REC Oral Vanc # 2 / 10 days. Continue IV Vanc, my colleagues at [facility] will need to decide on length of therapy, perhaps stopping soon (has received about 6 weeks so far and exam is acceptable) Subjective Date/time seen: 04/14/19 11:29 Interval history: nausea persists. Pills make her gag Exam Narrative: Exam Narrative: afebrile Const: Other: appears ill, no resp distress Eyes: General: appearance normal, both eyes and all related structures Resp: Effort & Inspection: normal respiratory effort Auscultation: clear to auscultation bilaterally Cardio: Rate: tachycardic Rhythm: regular rhythm Heart sounds: no murmurs GI: Inspection: distended GI Palp: Yes Soft to palpation, Yes Tenderness to palpation present (GI) and No Guarding due to palpation present (GI) Percussion: Yes normal to percussion Auscultation: abnormal bowel sounds Other: obese. FlesxiSeal in place, 200 cc past 24 hours Skin: General skin exam: normal color and no rashes or lesions noted Objective Data Vital Signs Vital Signs: Vital Signs - 24 hr 04/13/19 14:00 04/13/19 15:57 04/13/19 20:10 Temperature 36.7 C 36.5 C 36.1 C L Pulse Rate 122 H 120 H 121 H Respiratory Rate 22 H 22 H 22 H Blood Pressure 151/68 H 121/44 L 146/76 H Pulse Oximetry 90 97 96 04/13/19 22:22 04/14/19 00:00 04/14/19 04:00 Temperature 35.9 C L 36.1 C L Pulse Rate 119 H 122 H 114 H Respiratory Rate 22 H 18 Blood Pressure 152/67 H 149/63 H Pulse Oximetry 95 93 97 04/14/19 08:00 04/14/19 09:06 04/14/19 10:39 Temperature 36.6 C Pulse Rate 112 H 112 H Respiratory Rate 20 20 Blood Pressure 135/65 Pulse Oximetry 97 96 97 Intake/Output Intake/Output: Intake & Output 04/11/19 04/12/19 04/13/19 04/14/19 23:59 23:59 23:59 23:59 Intake Total 1200 4007 1000 Output Total 200 400 Balance 1200 3807 600 Meds/Results Medications: Active Medications Generic Name Dose Route Start Last Admin Trade Name Freq PRN Reason Stop Dose Admin Albuterol 2.5 mg 04/13/19 10:12 Albuterol Sulf Neb 2.5mg/0.5ml INHALATION Q4HRT PRN Shortness Of Breath Guaifenesin 600 mg 04/13/19 21:00 04/14/19 08:21 Mucinex 12 Hr Tab PO 600 mg Q12HR SCOTT Administration Acetaminophen 1,000 mg in 100 mls @ 400 mls/hr 04/13/19 11:40 Ofirmev 1,000 Mg Ivpb IVPB 04/14/19 11:41 Q6H PRN Pain Rated 1-3 Vancomycin HCl 1,500 mg in 500 mls @ 333.333 mls/hr 04/13/19 16:00 04/14/19 04:31 Vancomycin 1,500 Mg/D5w 500 Ml IVPB 250 mls/hr Q12H SCOTT Administration Ceftriaxone Sodium/Dextrose 1 gm in 50 mls @ 100 mls/hr 04/13/19 18:00 04/13/19 17:52 Rocephin 1 Gm/D5w 50 Ml IVPB 100 mls/hr Q24H SCOTT Administration Lactated Ringer's 1,000 mls @ 125 mls/hr 04/13/19 18:05 04/14/19 08:26 Lr - Lactated Ringers Iv IV CONT 125 mls/hr .Q8H SCOTT Administration Lactobacillus Acidophilus 1 tablet 04/13/19 17:00 04/14/19 08:22 Lactinex Chewable Tablet PO 1 tablet BID SCOTT Administration Loratadine 5 mg 04/13/19 09:00 04/14/19 08:22 Claritin PO 5 mg QAM SCOTT Administration Morphine Sulfate 4 mg 04/12/19 17:08 Morphine Sulfate Inj IV PUSH Q2H PRN Pain Rated 7-10 Morphine Sulfate 2 mg 04/13/19 10:16 Morphine Sulfate Inj IV PUSH Q4H PRN Pain Rated 4-6 Non-Formulary Medication 1 each 04/13/19 17:00 Petvkrub-Lfdhuoszb-Uukdpph Hmb [Ahmet] PO 05/13/19 17:01 BID SCOTT Ondansetron HCl 4 mg 04/12/19 17:08 04/14/19 09:25 Zofran Inj IV
--- NOTE | 2019-04-14 15:40 | PC.NURSE ---
[employer] SALES ASSOCIATE AWARE THE PT IS REFUSING THE NG TUBE.
[2019-04-14 16:14] LABS: Alanine Aminotransferase 19 U/L (4-35); Albumin Level 2.6 g/dL (3.5-5.1); Alkaline Phosphatase 161 U/L (38-126); Aspartate Amino Transferase 24 U/L (14-36); Bilirubin,Total 0.4 mg/dL (0.2-1.3); Blood Urea Nitrogen 11 mg/dL (7-17); Calcium 8.2 mg/dL (8.4-10.2); Carbon Dioxide 32 mmol/L (22-30); Chloride 93 mmol/L (98-107); Estimated CRCL calculation 177 ml/min; Estimated Glomerular Filt Rate > 60; Glucose 104 mg/dL (65-105); Magnesium 1.8 mg/dL (1.6-2.3); Phosphorus 1.5 mg/dL (2.5-4.5); Sodium 133 mmol/L (137-145)
[2019-04-14 16:17] LABS: Potassium 3.2 mmol/L (3.4-5.0)
[2019-04-14] MEDS: VANCOMYCIN ORAL 125 MG/2.5 ML SYRUP FEED TUBE ×2 (17:02→23:49)
[2019-04-14] MEDS: POTASSIUM CHLORIDE 20 MEQ TABLET 40 MEQ PO (21:14)
[2019-04-15 02:59] LABS: Hematocrit 39.9 % (37.0-47.0); Mean Corpuscular HGB Conc 32.6 g/dl (32-36); Mean Corpuscular Hemoglobin 28.7 pg (26-34); Mean Corpuscular Volume 88.1 fl (80-100); Mean Platelet Volume 10.2 fl (7.4-10.4); Platelet Count Result 366 k/mm3 (150-375); Red Blood Count 4.53 M/mm3 (4.2-5.4); Red Cell Distribution Width 13.8 % (11.5-14.5)
[2019-04-15 03:13] LABS: Alanine Aminotransferase 17 U/L (4-35); Albumin Level 2.5 g/dL (3.5-5.1); Alkaline Phosphatase 142 U/L (38-126); Aspartate Amino Transferase 20 U/L (14-36); Bilirubin,Total 0.3 mg/dL (0.2-1.3); Blood Urea Nitrogen 10 mg/dL (7-17); Calcium 8.3 mg/dL (8.4-10.2); Carbon Dioxide 30 mmol/L (22-30); Chloride 98 mmol/L (98-107); Estimated CRCL calculation 177 ml/min; Estimated Glomerular Filt Rate > 60; Glucose 114 mg/dL (65-105); Magnesium 1.8 mg/dL (1.6-2.3); Potassium 3.3 mmol/L (3.4-5.0); Sodium 132 mmol/L (137-145)
[2019-04-15] MEDS: LACTATED RINGERS 1,000 ML 125 ML IV CONT ×2 (03:40→13:26)
[2019-04-15 03:54] LABS: Band Neutrophils Percent 18 % (0-6); Lymphocytes Absolute Manual 3.28 K/mm3 (1.1-4.5); Monocytes Absolute Manual 2.05 K/mm3 (0.1-0.90); Monocytes Percent Manual 5 % (3-9); Neutrophils Absolute Manual 35.67 K/mm3 (1.7-7.2); Neutrophils Percent Manual 69 % (46-73); Platelet Estimate Adequate (Adequate); Total Cells Counted 100
[2019-04-15 06:00] VITALS: BP 130/52; PULSE 110; RESP 20; TEMP 36.3; O2SAT 98
[2019-04-15] MEDS: POTASSIUM PHOS/SODIUM PHOS 250 MG TABLET PO ×3 (06:11→21:22)
[2019-04-15] MEDS: VANCOMYCIN ORAL 125 MG/2.5 ML SYRUP FEED TUBE ×4 (06:11→23:32)
[2019-04-15] MEDS: SERTRALINE HCL 50 MG TABLET PO (08:20)
[2019-04-15] MEDS: LORATADINE 5 MG TABLET PO (08:20)
[2019-04-15] MEDS: ACIDOPHILUS/BULGARICUS CHEWABLE TABLET 1 TABLET PO ×2 (08:20→17:25)
[2019-04-15] MEDS: TOLNAFTATE 1% POWDER 45 GM BTL 1 APPLIC TOPICAL ×2 (08:28→23:30)
[2019-04-15 08:30] VITALS: O2SAT 96
[2019-04-15 10:00] VITALS: BP 140/53; PULSE 105; RESP 17; TEMP 36.7; O2SAT 99
--- NOTE | 2019-04-15 10:12 | PM.IMPN ---
Progress Note: A&P Assessment and Plan (1) Severe sepsis: Code(s): A41.9 - Sepsis, unspecified organism; R65.20 - Severe sepsis without septic shock Status: Resolved Assessment and Plan: Patient continues to meet SIRS criteria with tachycardia and markedly elevated white count that increased to 41.0. Lactic acid is within normal limits at 1.5. She is afebrile and blood pressure is stable at 130/52. Suspected source of sepsis is C. diff colitis with stool toxin assay positive on 04/12/19. Blood cultures reveal NGTD. - Continue fluid replacement with IV Lactated Ringers, decrease to 75 ml/hr. - Continue to monitor white count and vitals, watching closely for hypotension. (2) C. difficile colitis: Code(s): A04.72 - Enterocolitis due to Clostridium difficile, not specified as recurrent Status: Acute Assessment and Plan: Per chart review, patient has a history of chronic antibiotic use due to recurrent right knee cellulitis. Currently on ferry terminal agent IV Vancomycin started in February 2019 per [facility] ID, administered through PICC line. She had a prior hospitalization from 03/21/19-03/31/19 during which she was initiated on treatment for C. diff colitis, although ultimately was negative. She received IV and PO Vancomycin, Levaquin, Flagyl, and Cefuroxime. C. Diff toxin from 04/12/19 is positive. Patient reports multiple episodes of diarrhea and now has rectal catheter in place with brown watery diarrhea in catheter bag, currently about 200 mL. An obstructive series abdomen XR performed on 04/12 revealed chronic colitis with no evidence of obstruction. A repeat XR performed on 04/13 reveals a distended colon with fold thickening consistent with colitis and adynamic ileus. On 04/14/19, she had an episode of vomiting with which she refused her PO Vanc as she believed swallowing a pill would cause further N/V. We discussed NG decompression for N/V which would allow Vanc administration per NG. She initially consented, and then refused NG. At that time, she consented to her PO Vanc, however she did miss one dose on the morning of 04/14/19 due to refusal. - Continue IV Lactated Ringers at 75 ml/hr to replace GI losses. - Continue PO Vancomycin [address] Bishop with recommendations greatly appreciated. Started on 04/13/19 with anticipated stop date 04/23/19 after 40 doses. One dose missed on 04/14/19 due to refusal. - Consider NG decompression if N/V persists or if patient becomes unable or refuses to take oral Vancomycin. - Continue probiotic - Continue NPO diet with ice chips and sips for medications (3) UTI (urinary tract infection): Code(s): N39.0 - Urinary tract infection, site not specified Status: Acute Assessment and Plan: Urinalysis on 04/12 consistent with UTI with positive nitrates, 1+ leuk esterase, and WBC. Urine cultures reveal >100,000 CFU Klebsiella pneumoniae with susceptibility to Ceftriaxone that patient received 2 doses of. . - Discontinue IV Ceftriaxone per recommendations of Dr. Bishop as patient is asymptomatic. (4) Acute hypokalemia: Code(s): E87.6 - Hypokalemia Status: Acute Assessment and Plan: Likely due to GI losses in diarrhea. Potassium low today at 3.3 with expected decline due to diarrhea. - Continue IV KCl 40 mEq x1 dose ordered - Recheck BMP this afternoon and replete as needed - As N/V is subsiding and patient is now able to tolerate oral medications, switch to PO KCl for additional K replacement. Consider scheduled KCl if further decrease in serum potassium. (5) Hypomagnesemia: Code(s): E83.42 - Hypomagnesemia Status: Acute Assessment and Plan: Suspected due to GI losses in diarrhea. Magnesium currently within normal limits at 1.8 - Continue to monitor magnesium level and replete as necessary. 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
--- NOTE | 2019-04-15 11:53 | WPDINFPN2 ---
Progress Note: A&P Assessment and Plan (1) C. difficile colitis: Code(s): A04.72 - Enterocolitis due to Clostridium difficile, not specified as recurrent Status: Acute Assessment and Plan: 1. Chronic diarrhea with acute worsening, due to C diff infection. Exam stable, WBC still high. Other causes of the leukocytosis are unlikely 2. 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 3. Asymptomatic bacteriuria REC Oral Vanc # 3 / 10 days. Continue IV Vanc, my colleagues at [facility] will need to decide on length of therapy, perhaps stopping soon (has received about 6 weeks so far and exam is acceptable). No need for additional antibiotics. Subjective Date/time seen: 04/15/19 11:53 Interval history: sleepy but arousable, no new complaints, nausea, taking oral Vanc once again. Exam Narrative: Exam Narrative: afebrile Const: General: no acute distress Eyes: General: appearance normal, both eyes and all related structures Resp: Effort & Inspection: normal respiratory effort Auscultation: clear to auscultation bilaterally Cardio: Rate: regular rate and tachycardic Rhythm: regular rhythm Heart sounds: Murmur heart sound present GI: Inspection: non-distended GI Palp: Yes Soft to palpation, No Tenderness to palpation present (GI) and No Guarding due to palpation present (GI) Auscultation: abnormal bowel sounds Other: flexiseal in, light brown and liquid Objective Data Vital Signs Vital Signs: Vital Signs - 24 hr 04/14/19 14:00 04/14/19 18:00 04/14/19 21:28 Temperature 36.6 C 36.6 C Pulse Rate 114 H 107 H 101 H Respiratory Rate 22 H 18 Blood Pressure 130/85 150/67 H Pulse Oximetry 95 100 99 04/14/19 22:00 04/15/19 06:00 04/15/19 08:30 Temperature 36.3 C L 36.3 C L Pulse Rate 101 H 110 H Respiratory Rate 18 20 Blood Pressure 134/46 L 130/52 L Pulse Oximetry 97 98 96 04/15/19 10:00 Temperature 36.7 C Pulse Rate 105 H Respiratory Rate 17 Blood Pressure 140/53 L Pulse Oximetry 99 Intake/Output Intake/Output: Intake & Output 04/12/19 04/13/19 04/14/19 04/15/19 23:59 23:59 23:59 23:59 Intake Total 1200 4057 3100 1500 Output Total 200 400 400 Balance 1200 3857 2700 1100 Meds/Results Medications: Active Medications Generic Name Dose Route Start Last Admin Trade Name Freq PRN Reason Stop Dose Admin Albuterol 2.5 mg 04/13/19 10:12 Albuterol Sulf Neb 2.5mg/0.5ml INHALATION Q4HRT PRN Shortness Of Breath Guaifenesin 600 mg 04/13/19 21:00 04/15/19 08:20 Mucinex 12 Hr Tab PO 600 mg Q12HR SCOTT Administration Vancomycin HCl 1,500 mg in 500 mls @ 333.333 mls/hr 04/13/19 16:00 04/15/19 05:41 Vancomycin 1,500 Mg/D5w 500 Ml IVPB Infused Q12H SCOTT Infusion Ceftriaxone Sodium/Dextrose 1 gm in 50 mls @ 100 mls/hr 04/13/19 18:00 04/14/19 16:55 Rocephin 1 Gm/D5w 50 Ml IVPB 100 mls/hr Q24H SCOTT Administration Lactated Ringer's 1,000 mls @ 125 mls/hr 04/13/19 18:05 04/15/19 03:40 Lr - Lactated Ringers Iv IV CONT 125 mls/hr .Q8H SCOTT Administration Lactobacillus Acidophilus 1 tablet 04/13/19 17:00 04/15/19 08:20 Lactinex Chewable Tablet PO 1 tablet BID SCOTT Administration Loratadine 5 mg 04/13/19 09:00 04/15/19 08:20 Claritin PO 5 mg QAM SCOTT Administration Morphine Sulfate 4 mg 04/12/19 17:08 Morphine Sulfate Inj IV PUSH Q2H PRN Pain Rated 7-10 Morphine Sulfate 2 mg 04/13/19 10:16 Morphine Sulfate Inj IV PUSH Q4H PRN Pain Rated 4-6 Non-Formulary Medication 1 each 04/13/19 17:00 Aenjcflc-Njglyjbzu-Hnohzjc Hmb [Ahmet] PO 05/13/19 17:01 BID SCOTT Ondansetron HCl 4 mg 04/12/19 17:08 04/14/19 09:25 Zofran Inj IV PUSH 4 mg Q4H PRN Administration Nausea Fluticasone/Salmeterol 2 puff 04/13/19 20:00 04/15/19 08:34 Advair Hfa 230-21 Mcg (*Sp) Inhaler INHALATION 2 puff Q12HRT SCOTT Administration Sertraline HCl 50 mg 04/14/19 0
[2019-04-15 14:00] VITALS: BP 127/58; PULSE 105; RESP 20; TEMP 36.6; O2SAT 97
[2019-04-15 17:23] LABS: Blood Urea Nitrogen 9 mg/dL (7-17); Calcium 8.2 mg/dL (8.4-10.2); Carbon Dioxide 30 mmol/L (22-30); Chloride 98 mmol/L (98-107); Estimated CRCL calculation 177 ml/min; Estimated Glomerular Filt Rate > 60; Glucose 154 mg/dL (65-105); Phosphorus 1.8 mg/dL (2.5-4.5); Potassium 3.9 mmol/L (3.4-5.0); Sodium 130 mmol/L (137-145)
[2019-04-15 18:00] VITALS: BP 144/61; PULSE 117; RESP 18; TEMP 36.7; O2SAT 98
[2019-04-15] MEDS: MORPHINE SULFATE 4 MG/ML INJ IV PUSH (21:20)
[2019-04-15 22:17] VITALS: BP 130/60; PULSE 100; RESP 20; TEMP 36.2; O2SAT 99
[2019-04-15] MEDS: MORPHINE SULFATE 2 MG/ML INJ IV PUSH (23:28)
[2019-04-16] VITALS (8 sets, daily range): BP systolic 129–142; BP diastolic 56–76; PULSE 98–120; RESP 17–20; TEMP 35.6–36.7; O2SAT 94–99
[2019-04-16] MEDS: MORPHINE SULFATE 4 MG/ML INJ IV PUSH ×3 (03:00→21:19)
[2019-04-16] MEDS: LACTATED RINGERS 1,000 ML 75 ML IV CONT (04:41)
[2019-04-16 05:54] LABS: Hemoglobin 12.7 g/dL (12.0-15.0); Mean Corpuscular HGB Conc 33.4 g/dl (32-36); Mean Corpuscular Hemoglobin 28.9 pg (26-34); Mean Corpuscular Volume 86.6 fl (80-100); Mean Platelet Volume 10.4 fl (7.4-10.4); Platelet Count Result 371 k/mm3 (150-375); Red Blood Count 4.39 M/mm3 (4.2-5.4); Red Cell Distribution Width 14.2 % (11.5-14.5)
[2019-04-16 06:01] LABS: White Blood Count 51.9 K/mm3 (4.5-10.0)
[2019-04-16 06:11] LABS: Blood Urea Nitrogen 9 mg/dL (7-17); Calcium 7.7 mg/dL (8.4-10.2); Carbon Dioxide 30 mmol/L (22-30); Chloride 92 mmol/L (98-107); Estimated CRCL calculation 177 ml/min; Estimated Glomerular Filt Rate > 60; Glucose 173 mg/dL (65-105); Magnesium 1.6 mg/dL (1.6-2.3); Phosphorus 2.7 mg/dL (2.5-4.5); Potassium 3.6 mmol/L (3.4-5.0); Sodium 132 mmol/L (137-145)
[2019-04-16] MEDS: VANCOMYCIN ORAL 125 MG/2.5 ML SYRUP FEED TUBE ×3 (06:57→17:44)
[2019-04-16] MEDS: POTASSIUM PHOS/SODIUM PHOS 250 MG TABLET PO (06:59)
[2019-04-16] MEDS: ACIDOPHILUS/BULGARICUS CHEWABLE TABLET 1 TABLET PO ×2 (08:14→17:44)
[2019-04-16] MEDS: LORATADINE 5 MG TABLET PO (08:14)
[2019-04-16] MEDS: SERTRALINE HCL 50 MG TABLET PO (08:14)
[2019-04-16] MEDS: TOLNAFTATE 1% POWDER 45 GM BTL 1 APPLIC TOPICAL (08:15)
[2019-04-16 08:30] LABS: Hematocrit 39.4 % (37.0-47.0); Hemoglobin 12.6 g/dL (12.0-15.0); Mean Corpuscular Hemoglobin 28.6 pg (26-34); Mean Corpuscular Volume 89.3 fl (80-100); Platelet Count Result 394 k/mm3 (150-375); Red Blood Count 4.41 M/mm3 (4.2-5.4); Red Cell Distribution Width 14.5 % (11.5-14.5)
[2019-04-16 08:36] LABS: Band Neutrophils Percent 10 % (0-6); Lymphocytes Absolute Manual 3.12 K/mm3 (1.1-4.5); Metamyelocytes Percent 10 %; Monocytes Absolute Manual 3.12 K/mm3 (0.1-0.90); Monocytes Percent Manual 6 % (3-9); Myelocytes Percent 1 %; Neutrophils Absolute Manual 40.04 K/mm3 (1.7-7.2); Neutrophils Percent Manual 67 % (46-73); Total Cells Counted 100
[2019-04-16 08:37] LABS: Hypochromasia 2+ (NORMAL)
[2019-04-16] MEDS: MORPHINE SULFATE 2 MG/ML INJ IV PUSH (12:07)
--- NOTE | 2019-04-16 12:25 | PM.CNGS ---
Assessment and Plan Assessment and plan (1) C. difficile colitis: Code(s): A04.72 - Enterocolitis due to Clostridium difficile, not specified as recurrent Status: Acute Assessment and Plan: The patient has evidence of clostridium difficile colitis with associated leukocytosis. Although, the leukocytosis has worsened, the patient has started improving. Looking at the patient on exam, she is alert and oriented and non-toxic appearing. She is tachycardic, which actually seems to be improving some, but she is otherwise stable. No hypotension or fever. She has no peritoneal signs. Her abdominal films show no signs of perforation. We would recommend to continue with antibiotic treatment for the C. Diff per Infectious Disease and continue to monitor the patient. If she begins to clinically decline or shows signs of systemic toxicity, we could consider repeating the CT scan. Otherwise, would continue to monitor for now with serial abdominal exams, labs, and abdominal films. She is tolerating the oral Vancomycin and no longer having nausea or vomiting. We will allow her to trial clear liquids today. If she has to be backed off of her diet again, then we could consider TPN in that setting. I did discuss with the patient that if she were to require more urgent surgery, that she is a high risk surgical candidate and there is concern that she would require ventilatory support post-operatively if this occurred. Hopefully, she continues to improve with current treatment. Thank you for allowing me to see the patient in consultation. We will continue to follow along with you. (2) Leukocytosis: Qualifiers: Leukocytosis type: unspecified Qualified Code(s): D72.829 - Elevated white blood cell count, unspecified Code(s): D72.829 - Elevated white blood cell count, unspecified Status: Acute Assessment and Plan: [place] to be related to the C. Diff colitis. Continue to monitor for signs of systemic toxicity. See plan above. (3) Electrolyte imbalance: Code(s): E87.8 - Other disorders of electrolyte and fluid balance, not elsewhere classified Status: Acute Assessment and Plan: Likely due to the ongoing infectious diarrhea. Has been replaced as need per medicine. (4) Chronic respiratory failure: Code(s): J96.10 - Chronic respiratory failure, unspecified whether with hypoxia or hypercapnia Status: Chronic Assessment and Plan: Currently on her baseline O2. Her COPD with chronic O2 use does increase her risk of surgery and the possibility of requiring ventilatory support post-operatively if she required emergent surgical intervention. I discussed this with the patient. (5) COPD (chronic obstructive pulmonary disease): Code(s): J44.9 - Chronic obstructive pulmonary disease, unspecified Status: Acute (6) Infection of right knee: Code(s): M00.9 - Pyogenic arthritis, unspecified Status: Chronic Assessment and Plan: Currently on IV Vancomycin per ID. [facility] and will plan to follow-up with them after discharge. She is currently also non-ambulatory which is likely complicating her bowel issues as well. (7) Diastolic dysfunction: Code(s): I51.89 - Other ill-defined heart diseases Status: Acute (8) Morbid obesity with BMI of 40.0-44.9, adult: Code(s): E66.01 - Morbid (severe) obesity due to excess calories; Z68.41 - Body mass index (BMI) 40.0-44.9, adult Status: Acute Assessment and Plan: Increases her risk of surgery. Additional Plan Discussed the patient's case and plan of care with Dr. Whitfield. History of Present Illness Consult details Consult date: 04/16/19 Reason for consult: other (C. Diff colitis with worsening leukocytosis) Requesting physician: Doris Matt PA-C Narrative: This is a 63-year-old morbidly obese female with a history of COPD with chronic respiratory failure on 3 L nasal cannula, diastolic
--- NOTE | 2019-04-16 14:06 | PM.IMPN ---
Progress Note: A&P Assessment and Plan (1) Severe sepsis: Code(s): A41.9 - Sepsis, unspecified organism; R65.20 - Severe sepsis without septic shock Status: Resolved Assessment and Plan: Further elevation of white count today at 51.9. Patient continues to meet SIRS criteria with tachycardia and marked leukocytosis. Lactic acid is within normal limits at 1.5. She is afebrile and blood pressure is stable at 140/76. Suspected source of sepsis is C. diff colitis with stool toxin assay positive on 04/12/19. Blood cultures reveal NGTD. - Discontinue IV fluid replacement as patient is edematous and SOB. - Continue to monitor white count and vitals, watching closely for hypotension. (2) C. difficile colitis: Code(s): A04.72 - Enterocolitis due to Clostridium difficile, not specified as recurrent Status: Acute Assessment and Plan: Per chart review, patient has a history of chronic antibiotic use due to recurrent right knee cellulitis. Currently on terminal gauger supervisor IV Vancomycin started in February 2019 per [facility] ID, administered through PICC line. She had a prior hospitalization from 03/21/19-03/31/19 during which she was initiated on treatment for C. diff colitis, although ultimately was negative. She received IV and PO Vancomycin, Levaquin, Flagyl, and Cefuroxime. C. Diff toxin from 04/12/19 is positive. Patient reports multiple episodes of diarrhea and now has rectal catheter in place with brown watery diarrhea in catheter bag. An obstructive series abdomen XR performed on 04/12 revealed chronic colitis with no evidence of obstruction. A repeat XR performed on 04/13 reveals a distended colon with fold thickening consistent with colitis and adynamic ileus. Repeat XR on 04/14 continued to show colitis and ileus with no acute changes noted. On 04/14/19, she had an episode of vomiting with which she refused her PO Vanc as she believed swallowing a pill would cause further N/V. We discussed NG decompression for N/V which would allow Vanc administration per NG. She initially consented, and then refused NG. She is taking oral Vancomycin without difficulty now. - Discontinue IV Lactated Ringers due to edema and SOB. Continue to monitor fluid status as there is still ongoing GI losses. - Continue PO Vancomycin [address] Bishop with recommendations greatly appreciated. Started on 04/13/19 with anticipated stop date 04/23/19 after 40 doses. One dose missed on 04/14/19 due to refusal. - Consider NG decompression if N/V persists or if patient becomes unable or refuses to take oral Vancomycin. - Continue probiotic - Advance to clear liquid diet - Surgical consult obtained due to risk of perforation with recommendations greatly appreciated. (3) UTI (urinary tract infection): Code(s): N39.0 - Urinary tract infection, site not specified Status: Acute Assessment and Plan: Urinalysis on 04/12 consistent with UTI with positive nitrates, 1+ leuk esterase, and WBC. Urine cultures reveal >100,000 CFU Klebsiella pneumoniae with susceptibility to Ceftriaxone that patient received 2 doses of. - Discontinue IV Ceftriaxone per recommendations of Dr. Bishop as patient is asymptomatic. (4) Acute hypokalemia: Code(s): E87.6 - Hypokalemia Status: Acute Assessment and Plan: Likely due to GI losses in diarrhea. Potassium stable at 3.6 today. - Continue to monitor and replace as necessary (5) Hypomagnesemia: Code(s): E83.42 - Hypomagnesemia Status: Acute Assessment and Plan: Suspected due to GI losses in diarrhea. Magnesium currently within normal limits at 1.6 - Continue to monitor magnesium level and replete as necessary. (6) Hypophosphatasia: Code(s): E83.39 - Other disorders of phosphorus metabolism Status: Acute Assessment and Plan: Likely due to lack of dietary intake and GI losses. Phosphorous currently within normal limits at 2.7. - Continue to monitor and
--- NOTE | 2019-04-16 14:37 | WPDINFPN2 ---
Progress Note: A&P Assessment and Plan (1) C. difficile colitis: Code(s): A04.72 - Enterocolitis due to Clostridium difficile, not specified as recurrent Status: Acute Assessment and Plan: 1. Chronic diarrhea with acute worsening, due to C diff infection. Exam stable, WBC higher. Despite this, no signs nor symptoms of complication such as ischemic colon. Other causes of the leukocytosis are unlikely 2. R knee infection, treated fci with IV vanc Exam without deterioration. 3. Asymptomatic bacteriuria REC Oral Vanc # 4 / 10 days. Continue IV Vanc, my colleagues [facility] will need to decide on length of therapy, perhaps stopping soon (has received about 6 weeks so far and exam is acceptable). No need for additional antibiotics. Subjective Date/time seen: 04/16/19 14:37 Interval history: appetite + -. No n/v. Flexiseal in place Exam Narrative: Exam Narrative: afebrile. Stool in collection bag small volume brown no blood Const: General: no acute distress Resp: Effort & Inspection: normal respiratory effort Auscultation: clear to auscultation bilaterally Cardio: Rate: tachycardic Rhythm: regular rhythm Heart sounds: no gallops and no murmurs GI: Inspection: distended GI Palp: Yes Firmness to palpation present (GI), No Tenderness to palpation present (GI) and No Guarding due to palpation present (GI) Percussion: Yes normal to percussion Auscultation: abnormal bowel sounds Objective Data Vital Signs Vital Signs: Vital Signs - 24 hr 04/15/19 18:00 04/15/19 22:17 04/16/19 02:00 Temperature 36.7 C 36.2 C L 36.1 C L Pulse Rate 117 H 100 98 Respiratory Rate 18 20 20 Blood Pressure 144/61 H 130/60 134/68 Pulse Oximetry 98 99 96 04/16/19 05:59 04/16/19 09:00 04/16/19 10:42 Temperature 35.6 C L 36.7 C Pulse Rate 99 114 H Respiratory Rate 17 Blood Pressure 140/76 129/60 Pulse Oximetry 97 98 95 Intake/Output Intake/Output: Intake & Output 04/13/19 04/14/19 04/15/19 04/16/19 23:59 23:59 23:59 23:59 Intake Total 4057 3100 3747 1850 Output Total 200 400 700 500 Balance 3857 2700 3047 1350 Meds/Results Medications: Active Medications Generic Name Dose Route Start Last Admin Trade Name Freq PRN Reason Stop Dose Admin Albuterol 2.5 mg 04/13/19 10:12 Albuterol Sulf Neb 2.5mg/0.5ml INHALATION Q4HRT PRN Shortness Of Breath Guaifenesin 600 mg 04/13/19 21:00 04/16/19 08:14 Mucinex 12 Hr Tab PO 600 mg Q12HR SCOTT Administration Vancomycin HCl 1,500 mg in 500 mls @ 333.333 mls/hr 04/13/19 16:00 04/16/19 06:50 Vancomycin 1,500 Mg/D5w 500 Ml IVPB Infused Q12H SCOTT Infusion Lactobacillus Acidophilus 1 tablet 04/13/19 17:00 04/16/19 08:14 Lactinex Chewable Tablet PO 1 tablet BID SCOTT Administration Loratadine 5 mg 04/13/19 09:00 04/16/19 08:14 Claritin PO 5 mg QAM SCOTT Administration Morphine Sulfate 4 mg 04/12/19 17:08 04/16/19 08:10 Morphine Sulfate Inj IV PUSH 4 mg Q2H PRN Administration Pain Rated 7-10 Morphine Sulfate 2 mg 04/13/19 10:16 04/16/19 12:07 Morphine Sulfate Inj IV PUSH 2 mg Q4H PRN Administration Pain Rated 4-6 Non-Formulary Medication 1 each 04/13/19 17:00 Zrkagaon-Bfryzpbwg-Hxdohve Hmb [Ahmet] PO 05/13/19 17:01 BID SCOTT Ondansetron HCl 4 mg 04/12/19 17:08 04/14/19 09:25 Zofran Inj IV PUSH 4 mg Q4H PRN Administration Nausea Fluticasone/Salmeterol 2 puff 04/13/19 20:00 04/16/19 10:40 Advair Hfa 230-21 Mcg (*Sp) Inhaler INHALATION 2 puff Q12HRT SCOTT Administration Sertraline HCl 50 mg 04/14/19 09:00 04/16/19 08:14 Zoloft PO 50 mg DAILY SCOTT Administration Sodium Phosphate 250 mg 04/14/19 07:40 04/16/19 06:59 K-Phos Neutral PO 250 mg Q8HR SCOTT Administration Tiotropium [place] 1 cap 04/14/19 09:00 04/16/19 10:39 Spiriva INHALATION 1 cap DAILY SCOTT Administration Tolnaftate 1 applic 04/13/19 21:00 04/16/19
[2019-04-16 16:28] LABS: Blood Urea Nitrogen 9 mg/dL (7-17); Calcium 8.1 mg/dL (8.4-10.2); Carbon Dioxide 28 mmol/L (22-30); Chloride 95 mmol/L (98-107); Estimated CRCL calculation 177 ml/min; Estimated Glomerular Filt Rate > 60; Glucose 141 mg/dL (65-105); Lactic Acid 1.5 mmol/L (0.7-2.1); Magnesium 1.7 mg/dL (1.6-2.3); Phosphorus 3.2 mg/dL (2.5-4.5); Potassium 3.7 mmol/L (3.4-5.0); Sodium 131 mmol/L (137-145)
[2019-04-17] VITALS (8 sets, daily range): BP systolic 120–148; BP diastolic 51–87; PULSE 71–114; RESP 16–22; TEMP 35.8–37.1; O2SAT 95–100
[2019-04-17] MEDS: VANCOMYCIN ORAL 125 MG/2.5 ML SYRUP FEED TUBE ×3 (00:57→13:02)
[2019-04-17] MEDS: TOLNAFTATE 1% POWDER 45 GM BTL 1 APPLIC TOPICAL ×3 (00:59→20:53)
[2019-04-17 05:29] LABS: Hematocrit 40.4 % (37.0-47.0); Hemoglobin 13.3 g/dL (12.0-15.0); Mean Corpuscular HGB Conc 32.9 g/dl (32-36); Mean Corpuscular Hemoglobin 28.5 pg (26-34); Mean Corpuscular Volume 86.7 fl (80-100); Mean Platelet Volume 11.1 fl (7.4-10.4); Platelet Count Result 355 k/mm3 (150-375); Red Blood Count 4.66 M/mm3 (4.2-5.4); Red Cell Distribution Width 14.6 % (11.5-14.5)
[2019-04-17 06:23] LABS: Alanine Aminotransferase 14 U/L (4-35); Albumin Level 2.3 g/dL (3.5-5.1); Alkaline Phosphatase 157 U/L (38-126); Aspartate Amino Transferase 28 U/L (14-36); Bilirubin,Total 0.6 mg/dL (0.2-1.3); Blood Urea Nitrogen 10 mg/dL (7-17); Calcium 7.6 mg/dL (8.4-10.2); Carbon Dioxide 28 mmol/L (22-30); Chloride 92 mmol/L (98-107); Estimated CRCL calculation 177 ml/min; Estimated Glomerular Filt Rate > 60; Glucose 201 mg/dL (65-105); Magnesium 1.7 mg/dL (1.6-2.3); Phosphorus 3.3 mg/dL (2.5-4.5); Potassium 3.9 mmol/L (3.4-5.0); Sodium 127 mmol/L (137-145)
[2019-04-17 06:39] LABS: Band Neutrophils Percent 14 % (0-6); Lymphocytes Absolute Manual 4.41 K/mm3 (1.1-4.5); Monocytes Absolute Manual 3.15 K/mm3 (0.1-0.90); Monocytes Percent Manual 5 % (3-9); Neutrophils Absolute Manual 55.44 K/mm3 (1.7-7.2); Neutrophils Percent Manual 74 % (46-73); Platelet Estimate Adequate (Adequate); Total Cells Counted 100
--- NOTE | 2019-04-17 06:47 | PC.NURSE ---
Critical lab reported by Laboratory at [id number], results not accessible until 0636.
[2019-04-17] MEDS: MORPHINE SULFATE 4 MG/ML INJ IV PUSH ×3 (06:50→20:52)
[2019-04-17] MEDS: ACIDOPHILUS/BULGARICUS CHEWABLE TABLET 1 TABLET PO ×2 (09:26→17:35)
[2019-04-17] MEDS: SERTRALINE HCL 50 MG TABLET PO (09:26)
[2019-04-17] MEDS: LORATADINE 5 MG TABLET PO (09:26)
--- NOTE | 2019-04-17 10:30 | PM.PNGS ---
Progress Note: A&P Assessment and Plan (1) C. difficile colitis: Code(s): A04.72 - Enterocolitis due to Clostridium difficile, not specified as recurrent Status: Acute Assessment and Plan: Although she has increased leukocytosis today, her physical exam is unchanged. Her tachycardia has improved and her hear rate is normal today. Remains afebrile and normotensive. Lactic acid checked yesterday, 1.5. Still no evidence of toxic megacolon. Continue current antibiotic treatment for C. Diff Colitis per ID. Tolerating clear liquid diet. Will continue to monitor. (2) Leukocytosis: Qualifiers: Leukocytosis type: unspecified Qualified Code(s): D72.829 - Elevated white blood cell count, unspecified Code(s): D72.829 - Elevated white blood cell count, unspecified Status: Acute Assessment and Plan: [place] to be related to the C. Diff colitis. Continue to monitor for signs of systemic toxicity. See plan above. (3) Electrolyte imbalance: Code(s): E87.8 - Other disorders of electrolyte and fluid balance, not elsewhere classified Status: Acute (4) Chronic respiratory failure: Code(s): J96.10 - Chronic respiratory failure, unspecified whether with hypoxia or hypercapnia Status: Chronic (5) COPD (chronic obstructive pulmonary disease): Code(s): J44.9 - Chronic obstructive pulmonary disease, unspecified Status: Acute (6) Infection of right knee: Code(s): M00.9 - Pyogenic arthritis, unspecified Status: Chronic Assessment and Plan: Currently on IV Vancomycin per ID. Followed by ID at [facility] and will plan to follow-up with them after discharge. (7) Diastolic dysfunction: Code(s): I51.89 - Other ill-defined heart diseases Status: Acute (8) Morbid obesity with BMI of 40.0-44.9, adult: Code(s): E66.01 - Morbid (severe) obesity due to excess calories; Z68.41 - Body mass index (BMI) 40.0-44.9, adult Status: Acute Additional Plan Discussed the patient's case and plan of care with Dr. Whitfield. Subjective Subjective Date/Time Seen: 04/17/19 08:20 Patient reports: no new complaints, feels better, tolerating liquids well, bowel movement and diarrhea Interval history: Patient seen and examined. Tolerating clear liquids well without any complaints of nausea, vomiting, or worsening bloating. States her abdominal pain is the same as yesterday, with no pain at rest but generalized abdominal pain with movement or palpation. Rectal tube drainage bag was changed yesterday and appears to have about 500 cc of stool in the bag today. No other complaints at this time. Review of Systems Review of Systems: All systems reviewed & are unremarkable except as noted in HPI and below Exam Const: General: comfortable, no acute distress, alert and awake Nutritional Appearance: obese morbidly obese GI: Inspection: distended, obesity and no visible herniation GI Palp: Yes Firmness to palpation present (GI), Yes Tenderness to palpation present (GI) (diffusely tender), No Guarding due to palpation present (GI) and Yes Rebound tenderness present Auscultation: Hypoactive bowel sounds present (few high-pitched tinkling bowel sounds) Rectal Exam: other (Rectal tube with liquid brown stool.) Neuro: General: moves all extremities Psych: Mental Status: mental status grossly normal Affect: normal affect Attitude: cooperative Thought process: Normal thought process present Objective Data Vital Signs Vital Signs: Vital Signs - 24 hr 04/16/19 10:42 04/16/19 14:00 04/16/19 18:00 Temperature 36.2 C L 36.4 C Pulse Rate 116 H 120 H Respiratory Rate 17 18 Blood Pressure 142/56 H 132/57 L Pulse Oximetry 95 98 99 04/16/19 22:05 04/16/19 22:41 04/17/19 02:00 Temperature 36.1 C L 35.8 C L Pulse Rate 99 96 Respiratory Rate 18 18 Blood Pressure 130/60 136/74 Pulse Oximetry 94 96 97 04/17/19 06:12 Temperature 36.4 C Pulse Rate 90 Res
--- NOTE | 2019-04-17 13:11 | PM.IMPN ---
Progress Note: A&P Assessment and Plan (1) Severe sepsis: Code(s): A41.9 - Sepsis, unspecified organism; R65.20 - Severe sepsis without septic shock Status: Resolved Assessment and Plan: Further elevation of white count today at 63.0. Patient continues to meet SIRS criteria with tachycardia and marked leukocytosis, although tachycardia seems to be resolving. Patient remains afebrile and blood pressures stable at 130/70. Lactic acid initially within normal limits at 1.5, repeated on 04/16/19 and stable still at 1.5. Suspected source of sepsis is C. diff colitis with stool toxin assay positive on 04/12/19. Blood cultures reveal NGTD. IV fluids were discontinued on 04/16/2019 due to fluid retention. - Continue to monitor white count and vitals, watching closely for hypotension. (2) C. difficile colitis: Code(s): A04.72 - Enterocolitis due to Clostridium difficile, not specified as recurrent Status: Acute Assessment and Plan: Per chart review, patient has a history of chronic antibiotic use due to recurrent right knee cellulitis. Currently on skilled nursing IV Vancomycin started in February 2019 per [facility] ID, administered through PICC line. She had a prior hospitalization from 03/21/19-03/31/19 during which she was initiated on treatment for C. diff colitis, although ultimately was negative. She received IV and PO Vancomycin, Levaquin, Flagyl, and Cefuroxime. C. Diff toxin from 04/12/19 is positive. Patient reports multiple episodes of diarrhea and now has rectal catheter in place with brown watery diarrhea in catheter bag. An obstructive series abdomen XR performed on 04/12 revealed chronic colitis with no evidence of obstruction. A repeat XR performed on 04/13 reveals a distended colon with fold thickening consistent with colitis and adynamic ileus. Repeat XR on 04/14 continued to show colitis and ileus with no acute changes noted. On 04/14/19, she had an episode of vomiting with which she refused her PO Vanc as she believed swallowing a pill would cause further N/V. She initially consented to NG decompression for N/V which would allow Vanc administration per NG, but ultimately refused. N/V has subsided and she is taking oral Vancomycin without difficulty. - Continue PO Vancomycin [address] Bishop with recommendations greatly appreciated. Started on 04/13/19 with anticipated stop date 04/23/19 after 40 doses. One dose missed on 04/14/19 due to refusal. - Continue probiotic - Continue clear liquid diet - Continue Zofran prn N/V - Order CT abdomen pelvis w/wo contrast to assess colitis - Surgical consult obtained due to risk of perforation with recommendations greatly appreciated. (3) Electrolyte imbalance: Code(s): E87.8 - Other disorders of electrolyte and fluid balance, not elsewhere classified Status: Acute Assessment and Plan: Patient has had hypokalemia, hypomagnesemia secondary to GI losses. Also had hypophosphatemia due to NPO diet and GI losses. Levels have been monitored and repleted as needed. Additionally, CMP showing hypocalcemia, however corrected for low albumin likely from decreased dietary intake, calcium falls within normal limits. Has not required electrolyte replacement since 04/14 and expect further improvement of electrolytes as patient advances clear liquids. - Continue to monitor electrolytes and replace as needed. (4) Infection of right knee: Code(s): M00.9 - Pyogenic arthritis, unspecified Status: Chronic Assessment and Plan: Patient has chronic right knee cellulitis. At this time, there is no edema, erythema, warmth, or tenderness on exam. Afebrile. White count elevated, but this is better explained by C. diff colitis. [facility] ID initiated skilled nursing IV Vancomycin 1.5 g Q12H in February 2019. Patient reports she had an appointment with [facility] today but was unable to attend due to her hospitalization. - Per Dr. Bishop's recommendations, continue IV Vancomycin. Dr. Bishop
[2019-04-17] MEDS: FUROSEMIDE INJ 40 MG/4 ML VIAL IV PUSH ×2 (15:46→17:46)
--- NOTE | 2019-04-17 16:15 | WPDINFPN2 ---
Progress Note: A&P Assessment and Plan (1) C. difficile colitis: Code(s): A04.72 - Enterocolitis due to Clostridium difficile, not specified as recurrent Status: Acute Assessment and Plan: 1. Chronic diarrhea with acute worsening, due to C diff infection. Exam stable, WBC higher yet again. Despite this, no signs nor symptoms of complication such as ischemic colon. Other causes of the leukocytosis remain unlikely 2. 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 3. Asymptomatic bacteriuria REC Oral Vanc # 5 / 10 days. Due to worsened leukocytosis, will advance dose to 500 q6hour. Continue IV Vanc, my colleagues at [facility] will need to decide on length of therapy, perhaps stopping soon (has received about 6 weeks so far and exam is acceptable). No need for additional antibiotics. Hematology evalaution is optional from my standpoint, discussed Subjective Date/time seen: 04/17/19 16:15 Interval history: still doesn't like the taste of the vanc. + abd tenderness when examined, but no abd pain. + R knee pain Exam Narrative: Exam Narrative: afebrile Const: General: no acute distress Eyes: General: appearance normal, both eyes and all related structures Resp: Effort & Inspection: normal respiratory effort Auscultation: clear to auscultation bilaterally Cardio: Rate: regular rate Rhythm: regular rhythm Heart sounds: no gallops and no murmurs GI: Inspection: distended GI Palp: Yes Firmness to palpation present (GI), No Tenderness to palpation present (GI), No Guarding due to palpation present (GI) and No Hernia present Percussion: Yes normal to percussion Auscultation: abnormal bowel sounds Skin: General skin exam: normal color Extrem: General: edema Objective Data Vital Signs Vital Signs: Vital Signs - 24 hr 04/16/19 18:00 04/16/19 22:05 04/16/19 22:41 Temperature 36.4 C 36.1 C L Pulse Rate 120 H 99 Respiratory Rate 18 18 Blood Pressure 132/57 L 130/60 Pulse Oximetry 99 94 96 04/17/19 02:00 04/17/19 06:12 04/17/19 08:00 Temperature 35.8 C L 36.4 C Pulse Rate 96 90 90 Respiratory Rate 18 18 18 Blood Pressure 136/74 130/70 Pulse Oximetry 97 95 95 04/17/19 10:00 04/17/19 14:00 Temperature 36.4 C 37.1 C Pulse Rate 114 H 71 Respiratory Rate 16 16 Blood Pressure 120/76 148/87 H Pulse Oximetry 99 100 Intake/Output Intake/Output: Intake & Output 04/14/19 04/15/19 04/16/19 04/17/19 23:59 23:59 23:59 23:59 Intake Total 3100 3747 2725 860 Output Total 400 700 750 200 Balance 2700 3047 1975 660 Meds/Results Medications: Active Medications Generic Name Dose Route Start Last Admin Trade Name Freq PRN Reason Stop Dose Admin Albuterol 2.5 mg 04/13/19 10:12 Albuterol Sulf Neb 2.5mg/0.5ml INHALATION Q4HRT PRN Shortness Of Breath Guaifenesin 600 mg 04/13/19 21:00 04/17/19 09:26 Mucinex 12 Hr Tab PO 600 mg Q12HR SCOTT Administration Vancomycin HCl 1,500 mg in 500 mls @ 333.333 mls/hr 04/13/19 16:00 04/17/19 06:53 Vancomycin 1,500 Mg/D5w 500 Ml IVPB Infused Q12H SCOTT Infusion Lactobacillus Acidophilus 1 tablet 04/13/19 17:00 04/17/19 09:26 Lactinex Chewable Tablet PO 1 tablet BID SCOTT Administration Loratadine 5 mg 04/13/19 09:00 04/17/19 09:26 Claritin PO 5 mg QAM SCOTT Administration Morphine Sulfate 4 mg 04/12/19 17:08 04/17/19 15:47 Morphine Sulfate Inj IV PUSH 4 mg Q2H PRN Administration Pain Rated 7-10 Morphine Sulfate 2 mg 04/13/19 10:16 04/16/19 12:07 Morphine Sulfate Inj IV PUSH 2 mg Q4H PRN Administration Pain Rated 4-6 Non-Formulary Medication 1 each 04/13/19 17:00 [id number]-Hnodvxpyn-Brfxejf Hmb [Ahmet] PO 05/13/19 17:01 BID SCOTT Ondansetron HCl 4 mg 04/12/19 17:08 04/14/19 09:25 Zofran Inj IV PUSH 4 mg Q4H PRN Administration Nausea Fluticasone/Salmeterol 2 puff 04/13/19 20:04/17/19 07:58 Advair Hfa 230-21 Mcg
[2019-04-17] MEDS: VANCOMYCIN ORAL 500 MG/10 ML SYRUP FEED TUBE ×2 (17:39→23:43)
[2019-04-17] MEDS: ONDANSETRON INJ 4 MG/2 ML VIAL IV PUSH (20:52)
[2019-04-18 02:00] VITALS: BP 139/66; PULSE 112; RESP 22; TEMP 36; O2SAT 93
[2019-04-18] MEDS: MORPHINE SULFATE 4 MG/ML INJ IV PUSH (02:30)
[2019-04-18] MEDS: ONDANSETRON INJ 4 MG/2 ML VIAL IV PUSH (02:30)
[2019-04-18 05:50] VITALS: BP 137/65; PULSE 115; RESP 20; TEMP 36.1; O2SAT 97
[2019-04-18 05:52] LABS: Alanine Aminotransferase 16 U/L (4-35); Albumin Level 2.4 g/dL (3.5-5.1); Alkaline Phosphatase 181 U/L (38-126); Aspartate Amino Transferase 26 U/L (14-36); Bilirubin,Total 0.6 mg/dL (0.2-1.3); Blood Urea Nitrogen 17 mg/dL (7-17); Carbon Dioxide 29 mmol/L (22-30); Chloride 91 mmol/L (98-107); Estimated CRCL calculation 138 ml/min; Estimated Glomerular Filt Rate > 60; Glucose 202 mg/dL (65-105); Magnesium 1.7 mg/dL (1.6-2.3); Potassium 3.4 mmol/L (3.4-5.0); Sodium 125 mmol/L (137-145)
[2019-04-18] MEDS: VANCOMYCIN ORAL 500 MG/10 ML SYRUP FEED TUBE ×3 (06:01→17:17)
[2019-04-18 07:08] LABS: Hematocrit 41.4 % (37.0-47.0); Hemoglobin 13.7 g/dL (12.0-15.0); Mean Corpuscular HGB Conc 33.1 g/dl (32-36); Mean Corpuscular Hemoglobin 28.7 pg (26-34); Mean Corpuscular Volume 86.6 fl (80-100); Mean Platelet Volume 11.8 fl (7.4-10.4); Platelet Count Result 345 k/mm3 (150-375); Red Blood Count 4.78 M/mm3 (4.2-5.4); Red Cell Distribution Width 14.6 % (11.5-14.5)
[2019-04-18 07:14] LABS: White Blood Count 82.2 K/mm3 (4.5-10.0)
[2019-04-18 07:19] LABS: Band Neutrophils Percent 13 % (0-6); Lymphocytes Absolute Manual 3.28 K/mm3 (1.1-4.5); Monocytes Absolute Manual 6.57 K/mm3 (0.1-0.90); Monocytes Percent Manual 8 % (3-9); Neutrophils Absolute Manual 72.33 K/mm3 (1.7-7.2); Neutrophils Percent Manual 75 % (46-73); Total Cells Counted 100
[2019-04-18 07:20] LABS: Platelet Estimate Adequate (Adequate)
[2019-04-18 08:00] VITALS: PULSE 115; RESP 20; O2SAT 97
[2019-04-18] MEDS: FUROSEMIDE INJ 40 MG/4 ML VIAL IV PUSH ×2 (09:16→17:19)
[2019-04-18] MEDS: ACIDOPHILUS/BULGARICUS CHEWABLE TABLET 1 TABLET PO ×2 (09:17→17:19)
[2019-04-18] MEDS: FIDAXOMICIN 200 MG TABLET PO (09:17)
[2019-04-18] MEDS: TOLNAFTATE 1% POWDER 45 GM BTL 1 APPLIC TOPICAL (09:17)
[2019-04-18] MEDS: LORATADINE 5 MG TABLET PO (09:17)
[2019-04-18] MEDS: SERTRALINE HCL 50 MG TABLET PO (09:18)
[2019-04-18 10:00] VITALS: BP 134/76; PULSE 76; RESP 20; TEMP 36.5; O2SAT 96
[2019-04-18 10:41] VITALS: O2SAT 94
--- NOTE | 2019-04-18 10:56 | PM.IMPN ---
Progress Note: A&P Assessment and Plan (1) C. difficile colitis: Code(s): A04.72 - Enterocolitis due to Clostridium difficile, not specified as recurrent Status: Acute Assessment and Plan: Per chart review, patient has a history of chronic antibiotic use, currently on fci IV Vancomycin started in February 2019 per [facility] ID, administered through PICC line. She had a prior hospitalization from 03/21/19-03/31/19 during which she was initiated on treatment for C. diff colitis, although ultimately was negative. She received IV and PO Vancomycin, Levaquin, Flagyl, and Cefuroxime. C. Diff toxin from 04/12/19 is positive. Obstructive XR on 04/12 revealed chronic colitis with no evidence of obstruction. A repeat XR on 04/13 reveals a distended colon with fold thickening consistent with colitis and adynamic ileus, with no changes on repeat 04/14. CT abdomen pelvis w/wo contrast ordered 04/17/19 and pending. Patient started PO Vanc 125 mg on 04/13/19 for 12 doses. Stopped on 04/17/19. Started on PO Vanc 500 mg on 04/17/19. General surgery consult was obtained on 04/16/19 due to risk of toxic megacolon or perforation. They are following, but the patient is a poor surgical candidate due to multiple comorbidities. - Per discussion with general surgeon Dr. Reddy , transfer to tertiary care facility is recommended due to high risk of perforation and marked leukocytosis without improval. [facility] recommended as patient is established with ID and surgeon at that facility. Edited to note that transfer was accepted on 04/18/19 to hospitalist service at [facility] by Dr. Rizzo pending bed availability. - Continue PO Vancomycin [address] Bishop. Start date 04/17/19. 25 doses ordered. - Initiate PO Fidaxomicin 200 mg BID for 10 days as additional antibiotic agents may be required. Start date 04/18/19, stop date 04/28/19 - Continue probiotic - Continue clear liquid diet - Continue Zofran prn N/V - Await CT abdomen pelvis w/wo contrast to assess colitis (2) Severe sepsis: Code(s): A41.9 - Sepsis, unspecified organism; R65.20 - Severe sepsis without septic shock Status: Resolved Assessment and Plan: Further elevation of white count today at critical high of 82.2. Patient continues to meet SIRS criteria with tachycardia and marked leukocytosis, although tachycardia seems to be resolving. Patient remains afebrile and blood pressures stable at 137/65. Lactic acid initially within normal limits at 1.5, repeated on 04/16/19 and stable still at 1.5. Suspected source of sepsis is C. diff colitis with stool toxin assay positive on 04/12/19. Blood cultures reveal NGTD. IV fluids were discontinued on 04/16/2019 due to fluid retention. - Continue to monitor white count and vitals, watching closely for hypotension. (3) Electrolyte imbalance: Code(s): E87.8 - Other disorders of electrolyte and fluid balance, not elsewhere classified Status: Acute Assessment and Plan: Patient has had hypokalemia and hypomagnesemia secondary to GI losses. Also had hypophosphatemia due to NPO diet and GI losses. Levels have been monitored and repleted as needed. Additionally, CMP showing hypocalcemia, however corrected for low albumin likely from decreased dietary intake, calcium falls within normal limits. Has not required electrolyte replacement since 04/14 and expect further improvement of electrolytes as patient advances clear liquids. Today patient is hyponatremic at 125. Suspected to be due to fluid retention and increased free water as patient is still quite edematous. - Continue to diurese patient with 40 mg IV Lasix BID. Monitor fluid status and continue to monitor BMP. - Continue to monitor electrolytes and replace as needed. (4) Infection of right knee: Code(s): M00.9 - Pyogenic arthritis, unspecified Status: Chronic Assessment and Plan: Patient has chronic right knee cellulitis s/p ORIF distal right femur in April 2018. At this time,
--- NOTE | 2019-04-18 11:21 | PCRCNOTE ---
Window of time for administration has passed. See next scheduled administration.
[2019-04-18] MEDS: FAMOTIDINE 20 MG TABLET PO (12:15)
[2019-04-18 14:00] VITALS: BP 100/72; PULSE 112; RESP 18; TEMP 36.6; O2SAT 98
--- NOTE | 2019-04-18 14:13 | PM.PNGS ---
Progress Note: A&P Assessment and Plan (1) C. difficile colitis: Code(s): A04.72 - Enterocolitis due to Clostridium difficile, not specified as recurrent Status: Acute Assessment and Plan: White blood cell count has been quite high in the 50-94325 range. However today it is up to 82,000. patient does not appear to be improving. I discussed with the hospitalist, Doris Matt PA-C, that the patient is extremely high risk for total abdominal colectomy with ileostomy. I feel it would be best to transfer her back to [facility] where she received her surgical treatment as well as her halfway antibiotic care. There may be some medical and surgical options that could turn this around since she really does not have signs of toxicity as yet. We will go ahead and try to transfer her to [facility] when bed is available. Despite her markedly elevated white count today, I do not feel that she is significantly worse than she has been the last 3 or 4 days. (2) COPD (chronic obstructive pulmonary disease): Code(s): J44.9 - Chronic obstructive pulmonary disease, unspecified Status: Acute (3) Diastolic dysfunction: Code(s): I51.89 - Other ill-defined heart diseases Status: Acute (4) Morbid obesity with BMI of 40.0-44.9, adult: Code(s): E66.01 - Morbid (severe) obesity due to excess calories; Z68.41 - Body mass index (BMI) 40.0-44.9, adult Status: Acute Subjective Subjective Date/Time Seen: 04/18/19 14:13 Patient reports: no new complaints, still having pain ( not severe and no worse than before.), tolerating liquids well and afebrile Review of Systems Review of Systems: All systems reviewed & are unremarkable except as noted in HPI and below Constitutional: Constitutional: Denies headache(s) ENT: Denies headache(s) Cardiovascular: Cardiovascular: Denies chest pain and Denies dyspnea Respiratory: Respiratory: Denies cough and Denies dyspnea Gastrointestinal: Gastrointestinal: Reports as per HPI Neurologic: Denies confusion and Denies headache(s) Psychiatric: Psychiatric: Denies confusion Exam Const: General: comfortable and no acute distress; No confusion Nutritional Appearance: obese morbidly obese Orientation/consciousness: patient oriented x3 and No confusion GI: Inspection: distended GI Palp: Yes Soft to palpation, Yes Tenderness to palpation present (GI) ( Diffuse mostly in the upper abdomen), No Guarding due to palpation present (GI) and No Rebound tenderness present Auscultation: Hypoactive bowel sounds present Neuro: General: patient oriented x3, no focal motor deficits and No confusion Extrem: General: no calf tenderness and no edema Psych: Affect: normal affect Insight: Good insight present (Psych) Judgement: Good judgement present (Psych) Objective Data Vital Signs Vital Signs: Vital Signs - 24 hr 04/17/19 18:00 04/17/19 19:52 04/17/19 22:00 Temperature 36.9 C 36.2 C L Pulse Rate 113 H 112 H Respiratory Rate 16 22 H Blood Pressure 141/67 H 136/51 L Pulse Oximetry 100 95 98 04/18/19 02:00 04/18/19 05:50 04/18/19 08:00 Temperature 36.0 C L 36.1 C L Pulse Rate 112 H 115 H 115 H Respiratory Rate 22 H 20 20 Blood Pressure 139/66 137/65 Pulse Oximetry 93 97 97 04/18/19 10:00 04/18/19 10:41 Temperature 36.5 C Pulse Rate 76 Respiratory Rate 20 Blood Pressure 134/76 Pulse Oximetry 96 94 Intake/Output Intake/Output: Intake & Output 04/15/19 04/16/19 04/17/19 04/18/19 23:59 23:59 23:59 23:59 Intake Total 3747 2725 2010 1060 Output Total 700 750 700 0 Balance 3047 1975 1310 1060 Meds/Results Medications: Active Medications Generic Name Dose Route Start Last Admin Trade Name Freq PRN Reason Stop Dose Admin Albuterol 2.5 mg 04/13/19 10:12 Albuterol Sulf Neb 2.5mg/0.5ml INHALATION Q4HRT PRN Shortness Of Breath Famotidine 20 mg 04/18/19 11:00 04/18/19 12:15 Pepcid
[2019-04-18 16:52] LABS: Vancomycin Trough 19.5 ug/mL (10.0-20.0)
--- NOTE | 2019-04-18 19:13 | PC.NURSE ---
Was transferred to [facility] by ambulance.
--- NOTE | 2019-04-19 06:52 | PM.TDS ---
Transfer Discharge Sum: Prov Provider Date of admission: 04/13/19 09:55 Primary care physician: Frank Azul, Admitting clinician: Guadalupe Blair MD Consults: 04/12/19 17:11 Consult to Physician Routine Comment: Consulting Provider: Asad Bishop Reason for consultation: c diff colitis Has provider been notified: Yes 04/16/19 Consult to Physician Routine Comment: Spoke with office @ [phone] (,) Consulting Provider: Jaya Whitfield call center analyst/MD group to consult: Surgery Reason for consultation: C. diff colitis, worsening leukocytosis Has provider been notified: Yes DS: Diagnosis Admitting Diagnosis Admitting Diagnosis: Enterocolitis due to Clostridium difficile, not specified as recurrent Discharge Diagnosis (1) C. difficile colitis: Code(s): A04.72 - Enterocolitis due to Clostridium difficile, not specified as recurrent Status: Acute (2) Severe sepsis: Code(s): A41.9 - Sepsis, unspecified organism; R65.20 - Severe sepsis without septic shock Status: Resolved (3) Electrolyte imbalance: Code(s): E87.8 - Other disorders of electrolyte and fluid balance, not elsewhere classified Status: Acute (4) Infection of right knee: Code(s): M00.9 - Pyogenic arthritis, unspecified Status: Chronic (5) Diastolic dysfunction: Code(s): I51.89 - Other ill-defined heart diseases Status: Acute (6) UTI (urinary tract infection): Code(s): N39.0 - Urinary tract infection, site not specified Status: Resolved (7) COPD (chronic obstructive pulmonary disease): Code(s): J44.9 - Chronic obstructive pulmonary disease, unspecified Status: Acute Assessment and Plan: No evidence of acute exacerbation. Oxygen saturation stable on 2L O2 and respiratory rate stable. Continued on home albuterol prn, advair, and spiriva. (8) Depression: Code(s): F32.9 - Major depressive disorder, single episode, unspecified Status: Acute (9) Chronic respiratory failure: Code(s): J96.10 - Chronic respiratory failure, unspecified whether with hypoxia or hypercapnia Status: Chronic Assessment and Plan: O2 sat and respiratory rate stable on 2L nasal canula. Transfer Discharge Sum: Med Medications Active and Home Medications: Home Medications Ahmet 1 ea PO BID 03/20/19 [History Confirmed 04/12/19] Lactobacillus acidophilus [Acidophilus] 100 mg PO DAILY 03/20/19 [History Confirmed 04/12/19] Multi Vitamin 15 mg PO DAILY 03/20/19 [History Confirmed 04/12/19] Spiriva with HandiHaler 1 cap INHALATION DAILY 03/20/19 [History Confirmed 04/12/19] acetaminophen [Tylenol] 650 mg PO Q4-6H PRN 03/20/19 [History Confirmed 04/12/19] albuterol sulfate 0.63 mg INHALATION Q4H PRN 03/20/19 [History Confirmed 04/12/19] albuterol sulfate [Ventolin HFA] 2 puff INHALATION QID PRN 03/20/19 [History Confirmed 04/12/19] ascorbic acid (vitamin C) 500 mg PO BID 03/20/19 [History Confirmed 04/12/19] calcium carbonate [Calcium 500] 500 mg PO BID 03/20/19 [History Confirmed 04/12/19] cholecalciferol (vitamin D3) [Vitamin D3] 2,000 unit PO DAILY 03/20/19 [History Confirmed 04/12/19] cyanocobalamin (vitamin B-12) 100 mcg PO DAILY 03/20/19 [History Confirmed 04/12/19] ferrous sulfate [iron] 325 mg PO DAILY 03/20/19 [History Confirmed 04/12/19] fluticasone propion-salmeterol [Advair Diskus] 1 inh INHALATION Q12H 03/20/19 [History Confirmed 04/12/19] folic acid 1 mg PO DAILY 03/20/19 [History Confirmed 04/12/19] furosemide 40 mg PO BID 03/20/19 [History Confirmed 04/12/19] guaifenesin [Mucinex] 600 mg PO BID 03/20/19 [History Confirmed 04/12/19] levocetirizine 5 mg PO DAILY 03/20/19 [History Confirmed 04/12/19] ondansetron HCl [Zofran] 4 mg PO Q6H PRN 03/20/19 [History Confirmed 04/12/19] polyethylene glycol 3350 [Miralax] 17 g PO DAILY PRN 03/20/19 [History Confirmed 04/12/19] sennosides [senna] 8.6 mg PO HS PRN 03/20/19 [History Confirmed 04/11/
== END 2019-04-18 19:13 | disposition short-term general hospital (02) | DRG 372 ==
LOC: ANHED 17:15 → ANH2MED 18:12
PROVIDERS: Physician Assistant; Admitting Provider Hospitalist; Emergency Provider Emergency Medicine; Visit Provider Family Medicine
DX: A04.72 Enterocolitis due to Clostridium difficile, not specified as recurrent (principal); Z68.41 Body mass index [BMI] 40.0-44.9, adult; J96.10 Chronic respiratory failure, unspecified whether with hypoxia or hypercapnia; N39.0 Urinary tract infection, site not specified; L03.115 Cellulitis of right lower limb; B96.1 Klebsiella pneumoniae [K. pneumoniae] as the cause of diseases classified elsewhere; J44.9 Chronic obstructive pulmonary disease, unspecified; E66.01 Morbid (severe) obesity due to excess calories; D64.9 Anemia, unspecified; I73.9 Peripheral vascular disease, unspecified; E87.6 Hypokalemia; E86.0 Dehydration; M79.7 Fibromyalgia; F32.9 Major depressive disorder, single episode, unspecified; F41.9 Anxiety disorder, unspecified; I89.0 Lymphedema, not elsewhere classified; I27.20 Pulmonary hypertension, unspecified; E83.42 Hypomagnesemia; E83.39 Other disorders of phosphorus metabolism; M70.40 Prepatellar bursitis, unspecified knee; Z96.653 Presence of artificial knee joint, bilateral; Z90.49 Acquired absence of other specified parts of digestive tract; Z87.891 Personal history of nicotine dependence; Z66 Do not resuscitate
CPT/HCPCS: 36415; 71045; 74019; 74177; 80048; 80053; 80202; 81001; 82040; 83036; 83605; 83690; 83735; 84100; 84132; 84443; 85025; 85027; 85652; 86140; 87015; 87040; 87045; 87046; 87077; 87081; 87086; 87088; 87186; 87269; 87272; 87324; 87427; 87804; 89055; 92610; 94640; 96361; 96365; 96366; 96367; 96375; 99285; A9270; G0378; J0131; J0696; J1940; J2270; J2405; J2765; J3370; J3475; J3480; J7030; J7050; J7120; Q9967